=== PATIENT | male | born 1965 | race Caucasian/White ===

== ENCOUNTER 2021-12-28 08:09 | Oncology outpatient (recurring) (ONCR) | payer OTHER, SELFPAY | END 2022-01-06 23:59 | disposition home or self-care (01) | PROVIDERS: PCP Nurse Practitioner; Visit Provider Internal Medicine Hematology & Oncology | DX: C34.12 Malignant neoplasm of upper lobe, left bronchus or lung (principal); C77.8 Secondary and unspecified malignant neoplasm of lymph nodes of multiple regions; C78.01 Secondary malignant neoplasm of right lung; Z98.1 Arthrodesis status; K76.89 Other specified diseases of liver; G93.89 Other specified disorders of brain; F17.210 Nicotine dependence, cigarettes, uncomplicated | CPT/HCPCS: 99204 ==

== ENCOUNTER → 2021-12-29 09:47 | Outpatient (BNVA) | payer OTHER, SELFPAY | PROVIDERS: PCP Nurse Practitioner; Visit Provider Surgery | DX: C34.92 Malignant neoplasm of unspecified part of left bronchus or lung (principal) | CPT/HCPCS: 99203 ==

== ENCOUNTER 2022-01-04 10:21 | Outpatient (CLI) | payer OTHER, SELFPAY ==
--- NOTE | 2022-01-04 10:15 | MR_ITS ---
WS: [id number] MRI BRAIN WITH AND WITHOUT CONTRAST HISTORY: STAGING, history of lung cancer. COMPARISON: CT head 10/29/2011 TECHNIQUE: Multiplanar imaging performed through the brain with MultiHance 17 ml's IV. No acute infarcts are seen. Huang-white matter differentiation is well preserved. No susceptibility artifacts or prior lacunar infarcts. Ventricles and extra-axial spaces are normal. Clivus and pituitary gland are normal. There is a single enhancing nodule measuring 4 mm in the medial LEFT cerebellum. No susceptibility ar tifact. No additional areas of abnormal enhancement are identified. Dural venous sinuses are normal. Paranasal sinuses: Well aerated with no significant disease. Mastoid air cells: Normal. Calvarium and scalp: Normal. MR/MR head wo/w con [id number] IMPRESSION: 1. Single, 4 mm enhancing lesion in the medial LEFT cerebellum. Suspicious but indeterminate for metastatic lesion. Although there is no susceptibility artif act this could be a small vascular malformation. Suggest repeat MRI brain imagi ng with contrast in 4-6 weeks to evaluate for any progression in size. 2. No significant small vessel ischemic disease.
[2022-01-04] MEDS: gadobenate dimeglumine 20 mL vial IV (11:27)
== END 2022-01-04 10:22 | disposition home or self-care (01) ==
LOC: RAD 10:21
PROVIDERS: PCP Nurse Practitioner; Visit Provider Internal Medicine Hematology & Oncology
DX: C34.90 Malignant neoplasm of unspecified part of unspecified bronchus or lung (principal)
CPT/HCPCS: 70553; A9577

== ENCOUNTER 2022-01-07 10:14 | Day surgery (SDC) | payer OTHER, SELFPAY ==
[2022-01-06 09:51] VITALS: BMI 25.7
--- NOTE | 2022-01-07 10:46 | XRR_ITS ---
PROCEDURE INFORMATION: Exam: XR Chest Exam date and time: 01/07/2022 12:35 PM Age: 56 years old Clinical indication: Device placement; Other: Mediport placement; Prior surgery; Surgery date: Post-operative (0-2 days); Additional info: Postop mediport placement TECHNIQUE: Imaging protocol: Radiologic exam of the chest. Views: 1 view. COMPARISON: DX XR chest 1V [id number] 12/15/2021 10:19 AM FINDINGS: Tubes, catheters and devices: A right MediPort catheter is present with the tip projecting in the SVC. Lungs: There is no significant change in the large mass in the left upper lobe. A faint 18 mm nodule is present in the right lung base. Pleural spaces: Unremarkable. No pleural effusion. No pneumothorax. Heart/Mediastinum: Unremarkable. No cardiomegaly. Bones/joints: Unremarkable. XR/XR chest 1V portable [id number] IMPRESSION: 1. The tip of the MediPort catheter projects on the SVC. 2. Pulmonary masses unchanged.
--- NOTE | 2022-01-07 10:46 | SC_ITS ---
WS: [id number] C-arm FL for CVA [id number] REASON FOR EXAM: Mediport insertion FINDINGS: Chemotherapy infusion port over the right anterolateral chest. Port catheter placement transvenous ri ght subclavian vein with the tip at the cavoatrial junction. No pneumothorax. SC/C-arm FL for CVA [id number] IMPRESSION: Chemotherapy port and catheter placement as above.
[2022-01-07 11:00] VITALS: BP 105/75; PULSE 108; RESP 18; TEMP 36.6; O2SAT 100
[2022-01-07] MEDS: sodium chloride 0.9% 1,000 ML 30 ML IV (11:20)
--- NOTE | 2022-01-07 11:32 | P.ANESASSM_ITS ---
Pre-Anesthetic Assessment Height/Weight: Height 1.78 m Weight 81.193 kg Temp Pulse Resp BP Pulse Ox O2 Del Method 97.9 F 108 H 18 105/75 100 01/07/22 11:00 01/07/22 11:00 01/07/22 11:00 01/07/22 11:00 01/07/22 11:00 01/07/22 11:00 Preop Diagnosis: Left lung cancer Operation Date: 01/07/22 11:45 Proposed Procedures p port placment [id number] C34.92(Not Applicable) - Quinn Mendoza DO Familial anesthetic complications: None Was Beta Kd taken within 24 hours: N/A Was Clonidine taken within 24 hours: N/A Last intake: Intake Last Liquid Date 01/06/22 Last Liquid Time 21:00 Last Solid Date 01/06/22 Last Solid Time 21:00 Social Tobacco and No alcohol Exam alert, oriented x 3, clear to auscultation bilaterally and regular rate & rhythm Airway Mallampati: Class II Dentition: full Comments: Comments: states poor dentition on bottom teeth Pulmonary Lung cancer (R) Anesthetic Plan ASA status: 3 Anesthesia: MAC Risk of > 500 ml blood loss (7ml/kg in children): No Medications/Allergies Home Medications Medication Instructions Recorded Confirmed Last Taken Type acetaminophen 325 mg tablet 325 mg PO QID PRN Pain 12/28/21 01/07/22 2 Days Ago History (Tylenol) ~01/05/22 ibuprofen 200 mg tablet 200 mg PO Q6H PRN Pain 12/28/21 01/07/22 2 Days Ago History ~01/05/22 Allergies Allergy/AdvReac Type Severity Reaction Status Date / Time No Known Allergies Allergy Verified 12/29/21 10:02 [facility] Anesthesia Medical History Cancer of left lung Lung cancer Surgical History History of back surgery x3 History of esophagogastroduodenoscopy (EGD) 2009 History of lumbar surgery x3 History of testicular surgery double testicular torsion with hernia repair Hx of colonoscopy with polypectomy 2009 Family History Grandfather Cancer Grandmother Dementia Father Hypertension Other Anesthesia complication Diabetes Hyperlipidemia Denies family history of CAD (coronary artery disease) Clotting disorder Psychiatric illness Chronic kidney disease (CKD) Suicide Bleeding disorder Lung disease Stroke Social History Smoking and tobacco status: current every day smoker cigarettes Packs smoked per day: 1 Years cigarettes smoked: 30 Alcohol intake: current Alcohol intake frequency: holidays/special occasions only Data Anesthesia Cardiac Studies: No Data to Display
--- NOTE | 2022-01-07 11:39 | W.PM.OPSUD ---
Surgery/Procedure H&P Update DATE OF PROCEDURE: January 07, 2022 DATE H&P PERFORMED: 12/29/21 PREOP DIAGNOSIS: Left lung cancer PLANNED PROCEDURE: Operation Date: 01/07/22 11:45 Proposed Procedures p port placment [id number] C34.92(Not Applicable) - Quinn Mendoza DO
--- NOTE | 2022-01-07 11:40 | W.PM.OPSUD ---
Surgery/Procedure H&P Update DATE OF PROCEDURE: January 07, 2022 DATE H&P PERFORMED: 12/29/21 PREOP DIAGNOSIS: Left lung cancer PLANNED PROCEDURE: Operation Date: 01/07/22 11:45 Proposed Procedures p port placment [id number] C34.92(Not Applicable) - Quinn Mendoza DO
--- NOTE | 2022-01-07 11:41 | W.PM.OPSUD ---
Surgery/Procedure H&P Update DATE OF PROCEDURE: January 07, 2022 DATE H&P PERFORMED: 12/29/21 PREOP DIAGNOSIS: Left lung cancer PLANNED PROCEDURE: Operation Date: 01/07/22 11:45 Proposed Procedures p port placment [id number] C34.92(Not Applicable) - Quinn Mendoza DO
[2022-01-07] MEDS: ceFAZolin 2,000 MG in sodium chloride 0.9% (plus) 50 ML 100 MG IV (11:50)
[2022-01-07] MEDS: lidocaine 1% INJ 20 mL INJECTION (12:08)
[2022-01-07] MEDS: sodium chloride 0.9% (100 ml) 100 ML (12:14)
[2022-01-07] MEDS: heparin, porcine 1,000 unit/mL INJ 10 mL 10000 UNIT INJECTION (12:14)
[2022-01-07 12:29] VITALS: BP 94/64; PULSE 98; RESP 20; TEMP 36.5; O2SAT 98
--- NOTE | 2022-01-07 12:32 | PM.OP ---
Operative Report Date of procedure: January 07, 2022 Pre-op diagnosis: Preop Diagnosis Left lung cancer Post-op diagnosis: same Procedure done: Mediport placement Implants: PowerPort Surgeon: Dr. Quinn Mendoza, DO Anesthesia: MAC Estimated blood loss (mL): 5 Complications: None apparent Brief History: This is a very pleasant 56-year-old gentleman with lung cancer. Mediport placement was required for chemotherapy. The risks and benefits were explained and documented. Procedure: Patient was taken to the operating room and placed supine on the operating room table. All bony prominences were padded. She was given IV sedation and monitored throughout the case by the anesthesia personnel. SCDs were placed and turned on. The arms were tucked to the side. Patient received Ancef? 2 g preoperatively IV. The bilateral chest wall was prepped and draped in usual sterile fashion using chlorhexidine base prep. Sterile drapes were applied. We did procedure pause prior to beginning. ? An 18 gauge needle was placed in the right subclavian vein. Dark, nonpulsatile blood was aspirated. A guidewire was placed through the needle centrally toward the atrial/vena caval junction. Fluoroscopy visualized good placement. The needle was removed and the guidewire was clipped to the drape with a hemostat. ? Further local anesthetic was infiltrated in the soft tissues of the right/left chest wall and a #15 blade was used to make a horizontal skin incision. A subcutaneous Mediport pocket was created using Bovie cautery, dissecting down through the skin and subcutaneous tissues. Meticulous hemostasis was achieved. The Mediport was sutured in position using 3-0 vicryl suture x2 stitches. ? A #15 blade was used to make a small skin around the guidewire insertion area. The Mediport tubing was tunneled through the subcutaneous tissues up to the needle insertion location. ? A dilator with a peel-away sheath was placed over the guidewire and placed centrally. After measuring with fluoroscopy, the Mediport tubing was cut to length so that the tip would end at the atrial/vena caval junction. The inner cannula and the guidewire were removed, leaving the dilator sheath in place. The Mediport was flushed. The tip of the catheter was inserted through the peel-away sheath and the peel-away sheath removed in the standard fashion. The Mediport was accessed with a straight Singleton needle and dark, nonpulsatile blood was aspirated and flushed using heparinized saline to hep-lock the Mediport.? Final fluoroscopy visualization showed no kink in the catheter and the tip of the Mediport tubing near the atrial/vena caval junction. ? Both skin incisions were thoroughly irrigated and suctioned dry. Meticulous hemostasis noted. The Mediport incision was closed using interrupted 3-0 Vicryl suture for the deep dermal layer and 4-0 Vicryl run to close the skin edge. The right subclavian insertion site incision was closed with a single subcuticular stitch. Skin glue was applied as a topical dressing. This was allowed to dry. Patient was awakened from anesthesia and transferred via her cart to the recovery room in stable condition. All needle, sponge, and instrument counts were correct per the operating personnel x2 counts.
[2022-01-07 12:40] VITALS: BP 120/77; PULSE 112; RESP 20; O2SAT 93
[2022-01-07 12:45] VITALS: BP 112/90; PULSE 83; RESP 18; O2SAT 96
[2022-01-07 13:04] VITALS: BP 107/77; PULSE 97; RESP 16; TEMP 36.6; O2SAT 95
[2022-01-07 13:35] VITALS: BP 101/68; PULSE 97; RESP 18; O2SAT 97
--- NOTE | 2022-01-07 15:55 | ANE.PACU2 ---
Inpatient post-anesthesia follow up: Airway intact: Yes Vital signs: Temperature 98 F Pulse Rate 97 Respiratory Rate 18 Blood Pressure 101/68 Pulse Oximetry 97 Oxygen Delivery Me thod Room Air Oxygen Flow Rate 6 Fraction of Inspir ed Oxygen Hydration adequate: Yes Nausea and vomiting: No Pain level: 1 Mental status: Baseline
== END 2022-01-07 13:50 | disposition home or self-care (01) ==
PROVIDERS: PCP Nurse Practitioner; Visit Provider Surgery
PROC: (CPT 36561; principal; 2022-01-07 11:35)
DX: C34.90 Malignant neoplasm of unspecified part of unspecified bronchus or lung (principal); F17.210 Nicotine dependence, cigarettes, uncomplicated
CPT/HCPCS: 36561; 71045; 77001; C1788; J0690; J1644; J2704; J3010; J7030

== ENCOUNTER → 2022-01-19 08:45 | Outpatient (BNVA) | payer OTHER, SELFPAY | PROVIDERS: PCP Nurse Practitioner; Visit Provider Surgery | DX: Z95.828 Presence of other vascular implants and grafts (principal) | CPT/HCPCS: 99213 ==

== ENCOUNTER 2022-02-03 08:51 | Oncology outpatient (recurring) (ONCR) | payer OTHER, SELFPAY ==
--- NOTE | 2022-01-11 15:56 | N.ONRAD NP_ITS ---
Radiation Oncology Consultation Patient Name: Billy Capone Date of : 1965 Date of Service: 01/11/2022 Attending Physician: Eric Burr M.D. Billy Capone was seen in consultation this afternoon at the request of Melecio Babcock M.D. for consideration of thoracic radiotherapy in the management of a recently diagnosed non-small cell lung cancer. The patient was evaluated at the [facility] in [place], [place] for a persistent cough. A chest radiograph revealed a large left upper lobe mass, left hilar adenopathy, and a right lower lobe nodule. A thoracic CT scan ordered on December 08, 2021 described a 9.8 cm x 9.1 cm x 8.5 cm left upper lobe mass, 0.5 cm right lower lobe nodule, subcentimeter nodules in the right upper lobe and left lower lobe, hilar and mediastinal lymphadenopathy. A PET obtained on December 14, 2021 confirmed FDG activity within left upper lobe lung mass (SUV 21), and adjacent left upper lobe mass (SUV 9.1), right lower lobe nodule (SUV 6), and metabolic activity within the left hilar lymph, subcarinal, and paratracheal lymph nodes. A bronchoscopy with endobronchial ultrasound-guided biopsy performed on December 15, 2021. The pathology report (requested from the outside hospital and independently reviewed in [facility]) diagnosed metastatic adenocarcinoma from the lymph node station 7 specimen. An MRI of the head identified a 4 mm enhancing lesion in the medial aspect of the left cerebellum that was suspicious but indeterminate for metastatic lesion. The patient was evaluated for definitive thoracic radiotherapy. I discussed with Mr. Capone The [place] [employer] on Cancer Staging for lung cancer and specifically, the clinical stage BRISEIDA ([id number]) lung cancer corresponding to his disease. I also reviewed The National Comprehensive Cancer Network Guidelines recommending concurrent chemoradiotherapy for the management of locally advanced lung cancer associated with limited metastases. Chemoradiotherapy was established by the classic study, RTOG 9410, comparing sequential versus concurrent chemoradiotherapy that demonstrated an overall survival advantage for the concurrent chemoradiotherapy regimen. I would endorse a six week course of thoracic radiotherapy. Preceding radiotherapy, a computed tomographic radiotherapy planning scan with contrast in the treatment position will be acquired and co-registered to the patient's staging PET scan to identify the gross tumor volumes. The potential toxicities of thoracic radiotherapy were reviewed. The patient has verbalized understanding would like to proceed as recommended. The patient???s treatment plan was discussed with Melecio Babcock M.D. Signed by: Dr. Eric Burr 01/13/2022 9:27:35 AM
[2022-01-12 10:57] LABS: Basophils # 0.1 10^3/uL (0.0-0.1); Basophils % 0.6 %; Eosinophils # 0.3 10^3/uL (0.0-0.8); Hematocrit 42.4 % (42.0-52.0); Hemoglobin 13.9 g/dL (11.7-16.6); Lymphocytes # 2.7 10^3/uL (0.8-4.8); Lymphocytes % 17.7 %; Mean Corpuscular HGB Conc 32.8 g/dL (30.0-36.0); Mean Corpuscular Hemoglobin 30.4 pg (28.0-34.0); Mean Corpuscular Volume 92.8 fl (80-94); Mean Platelet Volume 10.4 fL (7.4-10.4); Monocytes # 1.2 10^3/uL (0.2-0.9); Neutrophils # 10.76 10^3/uL (1.8-7.7); Neutrophils % 71.2 %; Nucleated Red Blood Cells % 0 %; Platelet Count 506 10^3/cmm (130-400); Red Blood Count 4.57 10^6/uL (4.1-5.3); White Blood Count 15.1 10^3/uL (4.0-10.0)
[2022-01-12 11:31] LABS: Alanine Aminotransferase 21 U/L (0-41); Albumin Level 3.5 g/dL (3.5-5.2); Alkaline Phosphatase 97 U/L (40-130); Anion Gap 14.6 (5-19); Aspartate Amino Transferase 23 U/L (0-40); Blood Urea Nitrogen 10 mg/dL (6-20); Calcium 9.8 mg/dL (8.5-10.5); Carbon Dioxide 26 mmol/L (22-29); Chloride 99 mmol/L (98-107); Globulin 4.2 g/dL (1.3-4.6); Glomerular Filtration Rate 140.4 mL/min (90-130); Glucose 89 mg/dL (65-115); Osmolality Calculated 279 mOsm/kg (285-295); Potassium 4.6 mmol/L (3.5-5.1); Sodium 135 mmol/L (136-145); Total Bilirubin 0.3 mg/dL (0.15-1.2); Total Protein 7.7 g/dL (6.6-8.7)
[2022-01-12 11:32] LABS: Creatinine Clr Calc Pharmacy 150.2229
--- NOTE | 2022-01-13 | CT_ITS ---
Radiation Therapy Planning CT images MTDD
[2022-01-13] MEDS: iohexol 350 mg/mL 100 mL Btl IV (08:38)
[2022-01-19 09:43] LABS: Basophils # 0.1 10^3/uL (0.0-0.1); Basophils % 0.8 %; Eosinophils # 0.2 10^3/uL (0.0-0.8); Eosinophils % 1.8 %; Hematocrit 41.3 % (42.0-52.0); Hemoglobin 13.6 g/dL (11.7-16.6); Lymphocytes # 2.3 10^3/uL (0.8-4.8); Lymphocytes % 17.9 %; Mean Corpuscular HGB Conc 32.9 g/dL (30.0-36.0); Mean Corpuscular Hemoglobin 30.3 pg (28.0-34.0); Monocytes # 1.1 10^3/uL (0.2-0.9); Monocytes % 8.5 %; Neutrophils # 9.25 10^3/uL (1.8-7.7); Neutrophils % 70.5 %; Nucleated Red Blood Cells % 0 %; Platelet Count 439 10^3/cmm (130-400); Red Blood Count 4.49 10^6/uL (4.1-5.3); Red Cell Distribution Width 13.1 % (12.1-15.1); White Blood Count 13.1 10^3/uL (4.0-10.0)
[2022-01-19 10:09] LABS: Alanine Aminotransferase 12 U/L (0-41); Albumin Level 3.5 g/dL (3.5-5.2); Alkaline Phosphatase 93 U/L (40-130); Anion Gap 14.3 (5-19); Aspartate Amino Transferase 21 U/L (0-40); Blood Urea Nitrogen 9 mg/dL (6-20); Calcium 9.5 mg/dL (8.5-10.5); Carbon Dioxide 26 mmol/L (22-29); Chloride 98 mmol/L (98-107); Globulin 4.4 g/dL (1.3-4.6); Glomerular Filtration Rate 140.4 mL/min (90-130); Glucose 90 mg/dL (65-115); Osmolality Calculated 276 mOsm/kg (285-295); Potassium 4.3 mmol/L (3.5-5.1); Sodium 134 mmol/L (136-145); Total Bilirubin 0.2 mg/dL (0.15-1.2); Total Protein 7.9 g/dL (6.6-8.7)
[2022-01-19 10:18] LABS: Creatinine Clr Calc Pharmacy 150.7644
[2022-01-19] MEDS: sodium chloride 0.9% 250 ML 75 ML IV (11:03)
[2022-01-19] MEDS: ondansetron 2 mg/ML SDV 2 mL 8 MG IVP (11:03)
[2022-01-19] MEDS: CARBOplatin 300 MG in sodium chloride 0.9% 500 ML 530 MG IV (12:23)
[2022-01-19 13:52] VITALS: BP 95/60; PULSE 74; RESP 16; TEMP 36.6; O2SAT 93
--- NOTE | 2022-01-25 09:35 | ONCRAD TMN_ITS ---
Radiation Oncology Treatment Management Note Patient Name: Billy Capone Date of : 1965 Date of Service: 01/25/2022 Attending Physician: Eric Burr M.D. Billy Capone is a 56 year-old white male recently diagnosed with a clinical stage BRISEIDA ([id number]) non-small cell lung cancer. The patient was evaluated at the [facility] in [place], [place] for a persistent cough. A chest radiograph revealed a large left upper lobe mass, left hilar adenopathy, and a right lower lobe nodule. A thoracic CT scan ordered on December 08, 2021 described a 9.8 cm x 9.1 cm x 8.5 cm left upper lobe mass, 0.5 cm right lower lobe nodule, subcentimeter nodules in the right upper lobe and left lower lobe, hilar and mediastinal lymphadenopathy. A PET obtained on December 14, 2021 confirmed FDG activity within left upper lobe lung mass (SUV 21), and adjacent left upper lobe mass (SUV 9.1), right lower lobe nodule (SUV 6), and metabolic activity within the left hilar lymph, subcarinal, and paratracheal lymph nodes. A bronchoscopy with endobronchial ultrasound-guided biopsy performed on December 15, 2021. The pathology report diagnosed metastatic adenocarcinoma from the lymph node station 7 specimen. An MRI of the head identified a 4 mm enhancing lesion in the medial aspect of the left cerebellum that was suspicious but indeterminate for metastatic lesion. The patient has received 10 Gy of a prescribed 60 Huang with an intensity modulated radiotherapy plan utilizing a step and shoot treatment technique. He has been prescribed Carboplatin (AUC 2) and Abraxane (80 mg/m???) weekly during therapy. Upon review of systems, he reported hemorrhoids. On physical examination, the patient weighed 171 lbs. His temperature was 96.6 ???F and the blood pressure was 100/72 mmHg. The pulse was 111 bpm and his respiratory rate was 16. Oxygen saturation while breathing room air was 96%. There was no erythema within the treatment preciado. Continue thoracic radiotherapy as prescribed. I recommended Colace and MiraLAX. Signed by: Dr. Eric Burr 02/09/2022 9:34:55 AM
[2022-01-26 09:36] LABS: Basophils % 0.5 %; Eosinophils # 0.2 10^3/uL (0.0-0.8); Hematocrit 37.9 % (42.0-52.0); Hemoglobin 12.3 g/dL (11.7-16.6); Lymphocytes # 0.9 10^3/uL (0.8-4.8); Lymphocytes % 11.4 %; Mean Corpuscular HGB Conc 32.5 g/dL (30.0-36.0); Mean Corpuscular Hemoglobin 29.9 pg (28.0-34.0); Mean Corpuscular Volume 92.2 fl (80-94); Mean Platelet Volume 9.9 fL (7.4-10.4); Monocytes # 0.6 10^3/uL (0.2-0.9); Monocytes % 7.6 %; Neutrophils # 6.35 10^3/uL (1.8-7.7); Neutrophils % 77.8 %; Nucleated Red Blood Cells % 0 %; Platelet Count 418 10^3/cmm (130-400); Red Blood Count 4.11 10^6/uL (4.1-5.3); Red Cell Distribution Width 13.2 % (12.1-15.1); White Blood Count 8.2 10^3/uL (4.0-10.0)
[2022-01-26 09:53] LABS: Alanine Aminotransferase 15 U/L (0-41); Albumin Level 3.5 g/dL (3.5-5.2); Alkaline Phosphatase 87 U/L (40-130); Anion Gap 14.3 (5-19); Aspartate Amino Transferase 20 U/L (0-40); Blood Urea Nitrogen 10 mg/dL (6-20); Calcium 9.7 mg/dL (8.5-10.5); Carbon Dioxide 27 mmol/L (22-29); Chloride 101 mmol/L (98-107); Glomerular Filtration Rate 140.4 mL/min (90-130); Glucose 107 mg/dL (65-115); Osmolality Calculated 286 mOsm/kg (285-295); Potassium 4.3 mmol/L (3.5-5.1); Sodium 138 mmol/L (136-145); Total Bilirubin 0.3 mg/dL (0.15-1.2); Total Protein 7.5 g/dL (6.6-8.7)
[2022-01-26 09:54] LABS: Creatinine Clr Calc Pharmacy 150.7644
[2022-01-26] MEDS: sodium chloride 0.9% 250 ML 75 ML IV (12:04)
[2022-01-26] MEDS: ondansetron 2 mg/ML SDV 2 mL 8 MG IVP (12:04)
[2022-01-26] MEDS: CARBOplatin 300 MG in sodium chloride 0.9% 500 ML 530 MG IV (13:09)
[2022-01-26 14:12] VITALS: BP 96/62; PULSE 94; RESP 16; TEMP 36.8; O2SAT 96
[2022-02-02 10:06] LABS: Basophils # 0.1 10^3/uL (0.0-0.1); Basophils % 0.9 %; Eosinophils # 0.1 10^3/uL (0.0-0.8); Eosinophils % 1.1 %; Hematocrit 38.2 % (42.0-52.0); Hemoglobin 12.4 g/dL (11.7-16.6); Lymphocytes % 15.1 %; Mean Corpuscular HGB Conc 32.5 g/dL (30.0-36.0); Mean Corpuscular Hemoglobin 30.3 pg (28.0-34.0); Mean Corpuscular Volume 93.4 fl (80-94); Mean Platelet Volume 9.6 fL (7.4-10.4); Monocytes # 0.7 10^3/uL (0.2-0.9); Monocytes % 10.2 %; Neutrophils # 4.65 10^3/uL (1.8-7.7); Neutrophils % 72.2 %; Nucleated Red Blood Cells % 0 %; Platelet Count 348 10^3/cmm (130-400); Red Blood Count 4.09 10^6/uL (4.1-5.3); Red Cell Distribution Width 13.7 % (12.1-15.1); White Blood Count 6.4 10^3/uL (4.0-10.0)
[2022-02-02 10:29] LABS: Alanine Aminotransferase 13 U/L (0-41); Albumin Level 3.3 g/dL (3.5-5.2); Alkaline Phosphatase 86 U/L (40-130); Anion Gap 12.1 (5-19); Aspartate Amino Transferase 15 U/L (0-40); Blood Urea Nitrogen 10 mg/dL (6-20); Calcium 8.9 mg/dL (8.5-10.5); Carbon Dioxide 27 mmol/L (22-29); Chloride 100 mmol/L (98-107); Globulin 3.7 g/dL (1.3-4.6); Glomerular Filtration Rate 173.3 mL/min (90-130); Glucose 94 mg/dL (65-115); Osmolality Calculated 279 mOsm/kg (285-295); Potassium 4.1 mmol/L (3.5-5.1); Sodium 135 mmol/L (136-145); Total Bilirubin 0.2 mg/dL (0.15-1.2)
[2022-02-02] MEDS: sodium chloride 0.9% 250 ML 75 ML IV (13:25)
[2022-02-02] MEDS: ondansetron 2 mg/ML SDV 2 mL 8 MG IVP (13:26)
[2022-02-02] MEDS: CARBOplatin 300 MG in sodium chloride 0.9% 500 ML 530 MG IV (14:47)
[2022-02-02 15:52] VITALS: BP 95/64; PULSE 93; RESP 16; TEMP 36.9; O2SAT 93
== END 2022-02-03 09:26 | disposition home or self-care (01) ==
PROVIDERS: Internal Medicine Hematology & Oncology; PCP Nurse Practitioner; Visit Provider Specialist
DX: Z51.0 Encounter for antineoplastic radiation therapy (principal); C34.12 Malignant neoplasm of upper lobe, left bronchus or lung
CPT/HCPCS: 36591; 77014; 77300; 77301; 77334; 77336; 77338; 77386; 77470; 80053; 85025; 96367; 96375; 96413; 96417; 99024; 99205; 99213; 99214; J1100; J2405; J7040; J7050; J9045; J9264; Q9967

== ENCOUNTER 2022-02-05 08:52 | Oncology outpatient (recurring) (ONCR) | payer OTHER, SELFPAY | END 2022-02-06 23:59 | disposition home or self-care (01) | PROVIDERS: PCP Nurse Practitioner; Visit Provider Specialist | DX: C34.12 Malignant neoplasm of upper lobe, left bronchus or lung (principal); C77.8 Secondary and unspecified malignant neoplasm of lymph nodes of multiple regions; C78.01 Secondary malignant neoplasm of right lung; Z98.1 Arthrodesis status; K76.89 Other specified diseases of liver; G93.89 Other specified disorders of brain; F17.210 Nicotine dependence, cigarettes, uncomplicated; C79.31 Secondary malignant neoplasm of brain; F43.20 Adjustment disorder, unspecified; Z79.899 Other long term (current) drug therapy; C34.82 Malignant neoplasm of overlapping sites of left bronchus and lung | CPT/HCPCS: 77014; 77336; 77386 ==

== ENCOUNTER → 2022-02-09 10:11 | Outpatient (BNVA) | payer OTHER, SELFPAY ==
--- NOTE | 2022-02-22 09:48 | ONCRAD TMN_ITS ---
Radiation Oncology Treatment Management Note Patient Name: Billy Capone Date of : 1965 Date of Service: 02/22/2022 Attending Physician: Eric Burr M.D. Billy Capone is a 56 year-old white male recently diagnosed with a clinical stage BRISEIDA ([id number]) non-small cell lung cancer. The patient was evaluated at the [facility] in [place], [place] for a persistent cough. A chest radiograph revealed a large left upper lobe mass, left hilar adenopathy, and a right lower lobe nodule. A thoracic CT scan ordered on December 08, 2021 described a 9.8 cm x 9.1 cm x 8.5 cm left upper lobe mass, 0.5 cm right lower lobe nodule, subcentimeter nodules in the right upper lobe and left lower lobe, hilar and mediastinal lymphadenopathy. A PET obtained on December 14, 2021 confirmed FDG activity within left upper lobe lung mass (SUV 21), and adjacent left upper lobe mass (SUV 9.1), right lower lobe nodule (SUV 6), and metabolic activity within the left hilar lymph, subcarinal, and paratracheal lymph nodes. A bronchoscopy with endobronchial ultrasound-guided biopsy performed on December 15, 2021. The pathology report diagnosed metastatic adenocarcinoma from the lymph node station 7 specimen. An MRI of the head identified a 4 mm enhancing lesion in the medial aspect of the left cerebellum that was suspicious but indeterminate for metastatic lesion. The patient has received 44 Gy of a prescribed 60 Huang with an intensity modulated radiotherapy plan utilizing a step and shoot treatment technique. He has been prescribed Carboplatin (AUC 2) and Abraxane (80 mg/m???) weekly during therapy. Upon review of systems, he described fatigue and mild odynophagia. On physical examination, the patient weighed 169 lbs. His temperature was 98.3 ???F and the blood pressure was 103/71 mmHg. The pulse was 100 bpm and his respiratory rate was 16. Oxygen saturation while breathing room air was 96%. There was no erythema within the treatment preciado. Bronchial breath sounds were present. Continue thoracic radiotherapy as planned. Signed by: Dr. Eric Burr 02/22/2022 10:06:23 AM
== END ==
PROVIDERS: PCP Nurse Practitioner; Visit Provider Internal Medicine Hematology & Oncology
DX: Z51.0 Encounter for antineoplastic radiation therapy (principal); C34.12 Malignant neoplasm of upper lobe, left bronchus or lung; C78.01 Secondary malignant neoplasm of right lung; C77.8 Secondary and unspecified malignant neoplasm of lymph nodes of multiple regions; Z79.899 Other long term (current) drug therapy
CPT/HCPCS: 77014; 77386; 99214

== ENCOUNTER 2022-02-16 01:00 | Outpatient (CLI) | payer OTHER, SELFPAY | END 2022-02-16 23:00 | disposition home or self-care (01) | LOC: RAD 03-09 18:56 | PROVIDERS: PCP Nurse Practitioner; Visit Provider Internal Medicine Hematology & Oncology | DX: C34.12 Malignant neoplasm of upper lobe, left bronchus or lung (principal); C78.01 Secondary malignant neoplasm of right lung; C77.8 Secondary and unspecified malignant neoplasm of lymph nodes of multiple regions; Z98.1 Arthrodesis status; I82.B11 Acute embolism and thrombosis of right subclavian vein; R60.0 Localized edema; Z79.2 Long term (current) use of antibiotics; Z79.01 Long term (current) use of anticoagulants; Z79.899 Other long term (current) drug therapy; Z87.891 Personal history of nicotine dependence | CPT/HCPCS: 93971; 99213; 99214 ==

== ENCOUNTER → 2022-02-22 08:58 | Outpatient (BNVA) | payer OTHER, SELFPAY | PROVIDERS: PCP Nurse Practitioner; Visit Provider Internal Medicine Hematology & Oncology | DX: C34.12 Malignant neoplasm of upper lobe, left bronchus or lung (principal) | CPT/HCPCS: 99214 ==

== ENCOUNTER 2022-02-23 08:59 | Emergency (ER) | payer OTHER, SELFPAY ==
[2022-02-23] VITALS (43 sets, daily range): BP systolic 85–123; BP diastolic 58–77; PULSE 74–108; RESP 5–31; TEMP 36.4; O2SAT 94–99; BMI 23.6
[2022-02-23 09:22] LABS: Glucose Point of Care 131 mg/dL (70-110)
--- NOTE | 2022-02-23 09:29 | CT_ITS ---
WS: [id number] CT HEAD NONCONTRAST HISTORY: Symptoms of acute stroke, left-sided weakness. TECHNIQUE: Contiguous axial imaging performed through the brain in 2.5 mm imaging. Bone and soft tiss ue windows. Sagittal and coronal reformats reviewed. All CT scans at [facility] use at least one of these dose optimization techniques: automated exposure control; mA and/or kV adjustment per pa tient size (includes targeted exams where dose is matched to clinical indication); or iterative recon struction. DLP: 1211.3 mGy-cm. COMPARISON: 10/29/2011 No acute intracranial hemorrhage, midline shift or mass effect. No atrophy or prior infarcts or herniation. Ventricles: Normal size with no hydrocephalus. Inferior displacement of cerebellar tonsils. Paranasal sinuses: As visualized are clear. Mastoid air cells: Well pneumatized. Calvarium and scalp: Skull is intact with no soft tissue edema or swelling. CT/CT head thrombolytic [id number] IMPRESSION: Negative head CT. Study submitted for interpretation at 10:28 AM. Previous to this time study was reserved.
--- NOTE | 2022-02-23 09:38 | PC.NURSE ---
patient placed on teletypesetter monitor, pulse ox, and BP monitor
[2022-02-23 09:46] LABS: Basophils % 0.6 %; Eosinophils % 1.9 %; Lymphocytes # 0.2 10^3/uL (0.8-4.8); Lymphocytes % 15.6 %; Mean Corpuscular HGB Conc 32.4 g/dL (30.0-36.0); Mean Corpuscular Hemoglobin 30.8 pg (28.0-34.0); Mean Corpuscular Volume 95.2 fl (80-94); Monocytes # 0.1 10^3/uL (0.2-0.9); Monocytes % 8.4 %; Neutrophils # 1.12 10^3/uL (1.8-7.7); Neutrophils % 72.9 %; Nucleated Red Blood Cells % 0 %; Platelet Count 96 10^3/cmm (130-400); Red Blood Count 3.57 10^6/uL (4.1-5.3); Red Cell Distribution Width 15.2 % (12.1-15.1); White Blood Count 1.5 10^3/uL (4.0-10.0)
--- NOTE | 2022-02-23 09:46 | ECG_ITS ---
[facility] Test Date: 2022-02-23 Pat Name: Billy Capone Department: Room: Gender: Male [employer]: : 1965 Requested By: Elfego Alvarez Order Number: [id number] Luci MD: Oracio Tidwell M.D. Measurements Intervals Conrad Rate: 102 P: 79 [place]: 156 QRS: 93 QRSD: 100 T: 68 QT: 313 QTc: 409 Interpretive Statements SINUS TACHYCARDIA BORDERLINE RIGHT AXIS DEVIATION [QRS AXIS > 90] No previous ECG available for comparison Electronically Signed On 02-23-2022 14:44:16 MEAT CUTTER by Oracio Tidwell M.D. [id number]
[2022-02-23 09:52] LABS: Partial Thromboplastin Time 30.3 SECONDS (23.9-36.7)
[2022-02-23 09:53] LABS: Alanine Aminotransferase 13 U/L (0-41); Albumin Level 3.4 g/dL (3.5-5.2); Alkaline Phosphatase 93 U/L (40-130); Anion Gap 13.4 (5-19); Aspartate Amino Transferase 11 U/L (0-40); Blood Urea Nitrogen 12 mg/dL (6-20); Calcium 9.1 mg/dL (8.5-10.5); Carbon Dioxide 27 mmol/L (22-29); Chloride 98 mmol/L (98-107); Globulin 3.5 g/dL (1.3-4.6); Glomerular Filtration Rate 117.5 mL/min (90-130); Glucose 143 mg/dL (65-115); Osmolality Calculated 280 mOsm/kg (285-295); Potassium 4.4 mmol/L (3.5-5.1); Sodium 134 mmol/L (136-145); Total Bilirubin 0.2 mg/dL (0.15-1.2); Total Protein 6.9 g/dL (6.6-8.7)
--- NOTE | 2022-02-23 10:25 | ED_ITS ---
HPI - Neuro Symptoms/Deficit General: Chief Complaint: Neuro Symptoms/Deficit Stated Complaint: Confusion, tingling and low BP Time Seen by Provider: 02/23/22 09:26 Source: patient Mode of arrival: ambulatory History of Present Illness: 56-year-old male presents to the emergency room with right-sided weakness and numbness. He was fine when he went to bed last evening around 10 PM when he woke up this morning and 70 noticed the symptoms his states also his speech seems a little bit off. He feels he is having a hard time processing things although he gives a fairly good history and review of symptoms. He has a known history of lung cancer and is currently getting radiation. He did try CBD products for the first time last night. Onset (ago): unknown Location: speech, right face, right arm and right leg History of same: No Severity: mild Quality: weak, numb and tingling Relieving factors: none Exacerbating factors: none Associated symptoms: Reports weakness; Deny chest pain, cough, diaphoresis, fevers/chills, headache(s), anorexia, malaise, nausea, seizures, short of breath, syncope, tingling, vertigo or vomiting Treatments Prior to Arrival: none Review of Systems Const: Denies: malaise or diaphoresis ENMT: Denies: throat pain, ear or mastoid pain, nasal discharge or nasal congestion Card: Denies: chest pain or syncope Resp: Denies: dyspnea, productive cough or non-productive cough GI: Denies: nausea or vomiting : Denies: flank pain, dysuria, urinary frequency or urinary urgency Skin/Breast: Denies: rash or pruritus Neuro: Denies: headache(s) or vertigo PFS ED PFSH: Medical History Cancer of left lung Lung cancer Port-A-Cath in place Surgical History History of back surgery x3 History of esophagogastroduodenoscopy (EGD) 2010 History of lumbar surgery x3 History of testicular surgery double testicular torsion with hernia repair Hx of colonoscopy with polypectomy 2009 Family History Grandfather Cancer Grandmother Dementia Father Hypertension Other Anesthesia complication Diabetes Hyperlipidemia Denies family history of CAD (coronary artery disease) Clotting disorder Psychiatric illness Chronic kidney disease (CKD) Suicide Bleeding disorder Lung disease Stroke Social History Smoking and tobacco status: smoker, details unknown cigarettes Packs smoked per day: 1 Years cigarettes smoked: 30 Alcohol intake: current Alcohol intake frequency: holidays/special occasions only NIH stroke score NIHSS: Level Of Consciousness - 1a: 0 Level Of Consciousness Questions - 1b: Both Correct Level Of Consciousness Commands - 1c: Both Correct Best Gaze - 2: Normal Visual Anna - 3: No Visual Loss Facial Palsy - 4: Normal Motor Arm Right - 5: No Drift Motor Arm Left - 5: No Drift Motor Leg Right - 6: No Drift Motor Leg Left - 6: No Drift Limb Ataxia - 7: Absent Sensory - 8: Normal Best Language - 9: No Aphasia Dysarthia - 10: Normal Extinction And Inattention - 11: 0 Score: Total Score: 0 Physical Exam Const: COMMON NORMALS: no acute distress GENERAL APPEARANCE: cooperative and comfortable ORIENTATION/CONSCIOUSNESS: Yes awake, Yes oriented to person, Yes oriented to place and Yes oriented to time HENMT: COMMON NORMALS: normocephalic, atraumatic, hearing grossly normal bilaterally, external ears normal, EAC's normal, TM's normal bilaterally, Normal nasal mucous membranes and turbinates present, moist oral mucous membranes and oropharynx normal HEAD & SCALP: normocephalic and atraumatic NOSE: Normal nasal mucous membranes and turbinates present EXTERNAL EAR: Yes external ears normal EXTERNAL AUDITORY CANAL: EAC's normal TYMPANIC MEMBRANE: TM's normal bilaterally Eye: COMMON NORMALS: Equal, round and reactive pupils present, EOMs intact bilaterally, conjunctivae normal and no scleral icterus CONJUNCTIVA: Yes conjunctivae normal PUPIL: Yes Equal, round and reactive pupils present Neck/C-Spine: COMMON NORMALS: full ROM, no lymphadenopathy, supple and no JVD Lymph: LYMPHATIC: no lymphadenopathy noted and no lymphedema noted Resp: COMMON NORMALS: normal respiratory effort, No retractions, No use of accessory muscles and clear to auscultation bilaterally AUSCULTATION: clear to auscultation bilaterally Cardio: COMMON NORMALS: no JVD, regular rate, regular rhythm and No murmurs present (Cardio) RATE: regular rate RHYTHM: regular rhythm GI: COMMON NORMALS: Soft to palpation and No hepatosplenomegaly present AUSCULTATION: Yes normoactive bowel sounds PALPATION: Yes Soft to palpation, No Tenderness to palpation present (GI), No Guarding due to palpation present (GI) and Yes No hepatosplenomegaly present Extremity: COMMON NORMALS: normal to inspection, capillary refill normal, no clubbing, cyanosis or edema, no calf tenderness and no pedal edema Neuro: SENSORIUM/ORIENTATION: Yes oriented to person, Yes oriented to place and Yes oriented to time Skin: COMMON NORMALS: no rashes or lesions noted GENERAL SKIN EXAM: no rashes or lesions noted Course Vital Signs: Vital signs: Vital Signs Temperature 97.5 F L 02/23/22 09:12 Pulse Rate 96 02/23/22 13:21 Respiratory Rate 18 02/23/22 13:21 Blood Pressure 123/73 02/23/22 13:21 Pulse Oximetry 97 02/23/22 13:21 Oxygen Delivery Me thod 02/23/22 09:12 MDM - Neuro Symptoms/Deficit Medical Decision Making Suspect symptoms may be due to to taking the CBD product last night. In any event he has no symptoms at this time neurologically he is intact. Blood pressure initially mildly mono low resolved with administration of fluids he has no focal deficit at this time we will discharge patient home follow-up with his primary care doctor and oncology team as previously scheduled. Medical Records I reviewed the patient's medical records. Lab Data I reviewed the patient's lab results. 02/23/22 09:26 02/23/22 09:[address] 02/23/22 09:29 IMPRESSION: Negative head CT. Study submitted for interpretation at 10:28 AM. Previous to this time study was reserved. Head/Neck CTA 02/23/22 10:59 IMPRESSION: 1. No significant carotid artery stenosis or atherosclerotic disease. 2. Unremarkable [place]. 3. Known LEFT upper lobe large neoplastic mass with metastatic nodules in the RIGHT upper lobe. 4. No enhancing lesions identified within the brain on this CT angiogram. MRI evaluation would be much more sensitive. Patient had a suspicious cerebellar lesion on a prior MRI of 01/04/2022. Laboratory Results WBC 1.5 10^3/uL (4.0-10.0) L 02/23/22 09:26 RBC 3.57 10^6/uL (4.1-5.3) L 02/23/22 09:26 Hgb 11.0 g/dL (11.7-16.6) L 02/23/22 09:26 Hct 34.0 % (42.0-52.0) L 02/23/22 09: MCV 95.2 fl (80-94) H 02/23/22 09: MCH 30.8 pg (28.0-34.0) 02/23/22 09: MCHC 32.4 g/dL (30.0-36.0) 02/23/22 09: RDW 15.2 % (12.1-15.1) H 02/23/22 09: Plt Count 96 10^3/cmm (130-400) L 02/23/22 09: MPV 10.0 fL (7.4-10.4) 02/23/22 09: Neut % (Auto) 72.9 % 02/23/22 09: Lymph % (Auto) 15.6 % 02/23/22 09:26 [place] % (Auto) 8.4 % 02/23/22 09:26 Eos % (Auto) 1.9 % 02/23/22 09: Baso % (Auto) 0.6 % 02/23/22 09: Neut # (Auto) 1.12 10^3/uL (1.8-7.7) L 02/23/22 09:26 Lymph # (Auto) 0.2 10^3/uL (0.8-4.8) L 02/23/22 09:26 [place] # (Auto) 0.1 10^3/uL (0.2-0.9) L 02/23/22 09:26 Eos # (Auto) 0.0 10^3/uL (0.0-0.8) 02/23/22 09: Baso # (Auto) 0.0 10^3/uL (0.0-0.1) 02/23/22 09: Nucleated RBC % (auto) 0 % 02/23/22 09: Nucleated RBCs # 0.0 /100WBC 02/23/22 09: PT 14.50 SECONDS (12.1-14.9) 02/23/22 09:26 INR 1.10 (0.8-1.2) 02/23/22 09:26 APTT 30.3 SECONDS (23.9-36.7) 02/23/22 09:26 Sodium 134 mmol/L (136-145) L 02/23/22 09:26 Potassium 4.4 mmol/L (3.5-5.1) 02/23/22 09:26 Chloride 98 mmol/L (98-107) 02/23/22 09:26 Carbon Dioxide 27 mmol/L (22-29) 02/23/22 09:26 Anion Gap 13.4 (5-19) 02/23/22 09:26 BUN 12 mg/dL (6-20) 02/23/22 09:26 Creatinine 0.7 mg/dL (0.7-1.2) 02/23/22 09:26 GFR Calculation 117.5 mL/min (90-130) 02/23/22 09:26 Glucose 143 mg/dL (65-115) H 02/23/22 09:26 POC Glucose 131 mg/dL (70-110) H 02/23/22 09:19 Calculated Osmolality 280 mOsm/kg (285-295) L 02/23/22 09:26 Calcium 9.1 mg/dL (8.5-10.5) 02/23/22 09:26 Total Bilirubin 0.2 mg/dL (0.15-1.2) 02/23/22 09:26 AST 11 U/L (0-40) 02/23/22 09:26 ALT 13 U/L (0-41) 02/23/22 09:26 Alkaline Phosphatase 93 U/L (40-130) 02/23/22 09:26 Total Protein 6.9 g/dL (6.6-8.7) 02/23/22 09:26 Albumin 3.4 g/dL (3.5-5.2) L 02/23/22 09:26 Globulin 3.5 g/dL (1.3-4.6) 02/23/22 09:26 Urine Color Yellow (Yellow) 02/23/22 12:36 Urine Appearance Clear (CLEAR) 02/23/22 12:36 Urine pH 7 (5-7) 02/23/22 12:36 Ur Specific [place] 1.010 (1.005-1.030) 02/23/22 12:36 Urine Protein Neg (Negative) 02/23/22 12:36 Urine Glucose (UA) Norm (Normal) 02/23/22 12:36 Urine Ketones Negative (Negative) 02/23/22 12:36 Urine Blood Neg (Negative) 02/23/22 12:36 Urine Nitrate Negative (Negative) 02/23/22 12:36 Urine Bilirubin Neg (Negative) 02/23/22 12:36 Urine Urobilinogen Norm mg/dL (Negative) 02/23/22 12:36 Ur Leukocyte Esterase Negative (Negative) 02/23/22 12:36 Urine Opiates Screen Negative ng/mL (Negative) 02/23/22 12:36 Ur Barbiturates Screen Negative ng/mL (Negative) 02/23/22 12:36 Ur Phencyclidine Scrn Negative ng/mL (Negative) 02/23/22 12:36 Ur Amphetamines Screen Negative ng/mL (Negative) 02/23/22 12:36 U Benzodiazepines Scrn Negative ng/mL (Negative) 02/23/22 12:36 Urine Cocaine Screen Negative ng/mL (Negative) 02/23/22 12:36 U Marijuana (THC) Screen Positive ng/mL (Negative) H 02/23/22 12:36 Discharge Plan Discharge Patient Disposition: Home Clinical Impression: Transient cerebral ischemia, Cancer of left lung Condition: Stable Prescriptions: New aspirin 81 mg tablet,delayed release (DR/EC) 81 mg PO DAILY Qty: 30 0RF atorvastatin 40 mg tablet 40 mg PO DAILY Qty: 30 0RF No Action alprazolam 0.5 mg tablet 0.5 mg PO .Q6-8H PRN (Reason: anxiety) Qty: 40 0RF acetaminophen [Tylenol] 325 mg tablet 325 mg PO QID PRN (Reason: Pain) Hold Instructions: Resume on 01/10/22. polyethylene glycol 3350 [Miralax] 17 gram/dose powder 17 g PO DAILY PRN (Reason: Constipation) Eliquis 5 mg tablet 5 mg PO BID Qty: 74 0RF Rx Instructions: take 10mg BID for 7 days followed by 5mg BID thereafter oxycodone 5 mg/5 mL solution 5 mg PO Q4H PRN (Reason: pain) 14 Days Qty: 5 0RF prochlorperazine maleate [Compazine] 10 mg tablet 10 mg PO Q4H PRN (Reason: Mild Nausea) Qty: 30 3RF albuterol sulfate 2.5 mg /3 mL (0.083 %) Solution For Nebulization 2.5 mg INHALATION QID PRN (Reason: Shortness Of Breath) Discharge Orders: Discharge ED (Routine); Ordered 02/23/22 Ordered By: Elfego Posada Referrals: Ana Luisa Agarwal FNP [Primary Care Provider] - Discharge Diet: Usual diet Discharge Activity: Resume usual activity Patient Instructions: Opioid Safety, Pain Management Activity Restrictions/Additional Instructions: You were seen today for weakness on your right side. Your CT and CTA of your head and neck were negative. We will add aspirin and atorvastatin and set up for outpatient MRI of the head. Continue your Eliquis. Coding Level of Care Code ED Tip Fixer for Edu Fwd Exam Comprehensive
--- NOTE | 2022-02-23 10:59 | CT_ITS ---
WS: [id number] CT ANGIOGRAM CEREBRAL AND CAROTID ARTERIES HISTORY: cva, right-sided weakness. TECHNIQUE: CT angiogram is performed of the carotid and cerebral arteries. During arterial injection imaging is obtained from the skull vertex to the aortic arch in 1.25 mm imaging. Coronal and sagittal reformats are submitted. Additional multi planar reformats of the carotid and cerebral arteries are submitted, MIP imaging also reviewed. NASCET criteria utilized. [facility] CT [facility] at least one of these dose optimization techniques: automated exposure control; mA and/or kV adjust ment per patient size (includes targeted exams where dose is matched to clinical indication); or iter ative reconstruction. CONTRAST: Omnipaque 350; 95 mL IV. DLP: 523.94 mGy.cm COMPARISON: None available. Carotid Angiogram: Right carotid: Common carotid artery: Arises normally from the innominate artery. No significant plaque or stenosis. Internal carotid artery: No plaque or stenosis. External carotid artery: Patent. Left carotid: Common carotid artery: Arises normally from the aorta. No significant plaque or stenosis. Internal carotid artery: No plaque or stenosis. External carotid artery: Patent. Right vertebral artery: Unremarkable. Left vertebral artery: Dominant and normally arises from the subclavian. Subclavian arteries: No stenosis or significant abnormality. Upper thorax: Large neoplastic mass LEFT upper lobe is none. There are additional smaller RIGHT upper lobe metastatic nodules on a background of emphysema. Thyroid gland: Normal. Mild fullness and asymmetry LEFT tonsillar bed. No abnormality noted in this region on recent MRI. Osseous structures: Unremarkable. CEREBRAL ANGIOGRAM: Intracranial vertebral arteries: Normal with no significant atherosclerosis. Basilar artery: No significant stenosis or occlusion. No aneurysm. Intracranial Internal carotid arteries: Demonstrates no significant stenosis or plaque. Middle cerebral arteries: Normal. Anterior cerebral arteries and ACOM: Normal. Posterior cerebral arteries and PCOM's: Normal posterior cerebral arteries. Dominant RIGHT posterior communicating artery. LEFT posterior communicating artery is hypoplastic. Dural venous sinuses are normally enhancing. CT/CT angio headneck* [id number] IMPRESSION: 1. No significant carotid artery stenosis or atherosclerotic disease. 2. Unremarkable [place]. 3. Known LEFT upper lobe large neoplastic mass with metastatic nodules in the RIGHT upper lobe. 4. No enhancing lesions identified within the brain on this CT angiogram. MRI evaluation would be much more sensitive. Patient had a suspicious cerebellar le terrance on a prior MRI of 01/04/2022.
[2022-02-23] MEDS: diphenhydrAMINE 50 mg/mL SDV 1mL 25 MG IVP (11:25)
[2022-02-23] MEDS: iohexol 350 mg/mL 500 mL Btl (per mL) IV (12:03)
[2022-02-23 12:54] LABS: Add Urine Microscopic? NO; Charge for UA Resulting for Rev
[2022-02-23 13:18] LABS: Bilirubin Urine Neg (Negative); Blood Urine Neg (Negative); Glucose Urine UA Norm (Normal); Ketones Urine Negative (Negative); Leukocyte Esterase Urine Negative (Negative); Nitrate Urine Negative (Negative); Protein Urine Neg (Negative); Urine Appearance Clear (CLEAR); Urine Color Yellow (Yellow); Urobilinogen Urine Norm (Negative); pH Urine 7 (5-7)
[2022-02-23 13:26] LABS: Amphetamines Screen Urine Negative (Negative); Barbiturates Screen Urine Negative (Negative); Benzodiazepines Screen Urine Negative (Negative); Cocaine Screen Urine Negative (Negative); Opiate Screen Urine Negative (Negative); PCP Screen Urine Negative (Negative); THC Screen Urine Positive (Negative)
--- NOTE | 2022-02-23 13:26 | DCPLANNER ---
manager program had message to schedule an outpatient MRI for patient. manager program is unable to schedule the MRI due to patient having [employer] insurance. [facility], patient is follow up with Dr. Babcock and he will order the MRI for patient.
== END 2022-02-23 13:21 | disposition home or self-care (01) ==
PROVIDERS: Emergency Provider Family Medicine; PCP Nurse Practitioner
DX: G45.9 Transient cerebral ischemic attack, unspecified (principal); C34.92 Malignant neoplasm of unspecified part of left bronchus or lung; Z79.01 Long term (current) use of anticoagulants; F17.210 Nicotine dependence, cigarettes, uncomplicated
CPT/HCPCS: 36416; 70450; 70496; 70498; 80053; 80306; 81003; 82962; 85025; 85610; 85730; 93005; 96374; 96375; 99285; J1200; J2920; Q9967

== ENCOUNTER 2022-03-04 08:58 | Oncology outpatient (recurring) (ONCR) | payer OTHER, SELFPAY ==
--- NOTE | 2022-02-09 09:35 | ONCRAD TMN_ITS ---
Radiation Oncology Treatment Management Note Patient Name: Billy Capone Date of : 1965 Date of Service: 02/09/2022 Attending Physician: Eric Burr M.D. Billy Capone is a 56 year-old white male recently diagnosed with a clinical stage BRISEIDA ([id number]) non-small cell lung cancer. The patient was evaluated at the [facility] [place] [facility] in [place], [place] for a persistent cough. A chest radiograph revealed a large left upper lobe mass, left hilar adenopathy, and a right lower lobe nodule. A thoracic CT scan ordered on December 08, 2021 described a 9.8 cm x 9.1 cm x 8.5 cm left upper lobe mass, 0.5 cm right lower lobe nodule, subcentimeter nodules in the right upper lobe and left lower lobe, hilar and mediastinal lymphadenopathy. A PET obtained on December 14, 2021 confirmed FDG activity within left upper lobe lung mass (SUV 21), and adjacent left upper lobe mass (SUV 9.1), right lower lobe nodule (SUV 6), and metabolic activity within the left hilar lymph, subcarinal, and paratracheal lymph nodes. A bronchoscopy with endobronchial ultrasound-guided biopsy performed on December 15, 2021. The pathology report diagnosed metastatic adenocarcinoma from the lymph node station 7 specimen. An MRI of the head identified a 4 mm enhancing lesion in the medial aspect of the left cerebellum that was suspicious but indeterminate for metastatic lesion. The patient has received 26 Gy of a prescribed 60 Huang with an intensity modulated radiotherapy plan utilizing a step and shoot treatment technique. He has been prescribed Carboplatin (AUC 2) and Abraxane (80 mg/m???) weekly during therapy. Upon review of systems, he described fatigue. On physical examination, the patient weighed 169 lbs. His temperature was 98.3 ???F and the blood pressure was 102/70 mmHg. The pulse was 83 bpm and his respiratory rate was 20. Oxygen saturation while breathing room air was 94%. There was no erythema within the treatment preciado. Bronchial breath sounds were auscultated. Continue thoracic radiotherapy as planned. Signed by: Dr. Eric Burr 02/09/2022 9:33:50 AM
[2022-02-09 10:03] LABS: Basophils # 0.1 10^3/uL (0.0-0.1); Basophils % 1.2 %; Hematocrit 36.5 % (42.0-52.0); Lymphocytes # 0.7 10^3/uL (0.8-4.8); Mean Corpuscular HGB Conc 32.9 g/dL (30.0-36.0); Mean Corpuscular Hemoglobin 30.5 pg (28.0-34.0); Mean Corpuscular Volume 92.9 fl (80-94); Mean Platelet Volume 9.5 fL (7.4-10.4); Monocytes # 0.4 10^3/uL (0.2-0.9); Monocytes % 9.1 %; Neutrophils # 2.89 10^3/uL (1.8-7.7); Neutrophils % 71.2 %; Nucleated Red Blood Cells % 0 %; Platelet Count 202 10^3/cmm (130-400); Red Blood Count 3.93 10^6/uL (4.1-5.3); White Blood Count 4.1 10^3/uL (4.0-10.0)
[2022-02-09 10:26] LABS: Alanine Aminotransferase 12 U/L (0-41); Albumin Level 3.5 g/dL (3.5-5.2); Alkaline Phosphatase 109 U/L (40-130); Anion Gap 11.9 (5-19); Aspartate Amino Transferase 12 U/L (0-40); Blood Urea Nitrogen 13 mg/dL (6-20); Calcium 9.4 mg/dL (8.5-10.5); Carbon Dioxide 28 mmol/L (22-29); Chloride 99 mmol/L (98-107); Globulin 3.6 g/dL (1.3-4.6); Glomerular Filtration Rate 140.4 mL/min (90-130); Glucose 89 mg/dL (65-115); Osmolality Calculated 280 mOsm/kg (285-295); Potassium 3.9 mmol/L (3.5-5.1); Sodium 135 mmol/L (136-145); Total Bilirubin 0.2 mg/dL (0.15-1.2); Total Protein 7.1 g/dL (6.6-8.7)
[2022-02-09] MEDS: sodium chloride 0.9% 250 ML 75 ML IV (11:17)
[2022-02-09] MEDS: ondansetron 2 mg/ML SDV 2 mL 8 MG IVP (11:18)
[2022-02-09] MEDS: CARBOplatin 300 MG in sodium chloride 0.9% 500 ML 530 MG IV (12:35)
[2022-02-09 13:39] VITALS: BP 94/64; PULSE 94; RESP 16; TEMP 36.3; O2SAT 97
--- NOTE | 2022-02-12 10:01 | XR_ITS ---
WS: [id number] PA and lateral chest, 02/12/2022 Clinical Data: fever Comparison: Portable chest, 01/07/2022 Findings: The left upper lobe mass is diminished in size and density. There is a right lower lobe nod ule which is increased in density but not size. No pneumonia or pneumothorax is seen. The heart is no rmal. There is a right infusion catheter ending in the superior vena cava. XR/XR chest 2V* [id number] Impression: 1. Negative for acute pneumonia. 2. Decrease in density of left upper lobe mass. 3. No change in right lower lobe nodule.
[2022-02-12] MEDS: sodium chloride 0.9% 500 ML IV (10:15)
[2022-02-12 10:26] LABS: Basophils % 0.7 %; Eosinophils % 0.7 %; Hematocrit 35.3 % (42.0-52.0); Hemoglobin 11.6 g/dL (11.7-16.6); Lymphocytes # 0.5 10^3/uL (0.8-4.8); Lymphocytes % 12.5 %; Mean Corpuscular HGB Conc 32.9 g/dL (30.0-36.0); Mean Corpuscular Hemoglobin 30.9 pg (28.0-34.0); Mean Corpuscular Volume 93.9 fl (80-94); Mean Platelet Volume 9.4 fL (7.4-10.4); Monocytes # 0.3 10^3/uL (0.2-0.9); Monocytes % 5.8 %; Neutrophils # 3.46 10^3/uL (1.8-7.7); Neutrophils % 80.1 %; Nucleated Red Blood Cells % 0 %; Platelet Count 137 10^3/cmm (130-400); Red Blood Count 3.76 10^6/uL (4.1-5.3); Red Cell Distribution Width 14.6 % (12.1-15.1); White Blood Count 4.3 10^3/uL (4.0-10.0)
[2022-02-15 10:00] LABS: Eosinophils % 1.3 %; Hematocrit 35.6 % (42.0-52.0); Hemoglobin 11.7 g/dL (11.7-16.6); Lymphocytes # 0.6 10^3/uL (0.8-4.8); Lymphocytes % 18.8 %; Mean Corpuscular HGB Conc 32.9 g/dL (30.0-36.0); Mean Corpuscular Volume 94.2 fl (80-94); Mean Platelet Volume 9.6 fL (7.4-10.4); Monocytes # 0.2 10^3/uL (0.2-0.9); Monocytes % 5.1 %; Neutrophils # 2.29 10^3/uL (1.8-7.7); Neutrophils % 73.2 %; Nucleated Red Blood Cells % 0 %; Platelet Count 95 10^3/cmm (130-400); Red Blood Count 3.78 10^6/uL (4.1-5.3); Red Cell Distribution Width 14.7 % (12.1-15.1); White Blood Count 3.1 10^3/uL (4.0-10.0)
[2022-02-15 10:18] LABS: Alanine Aminotransferase 11 U/L (0-41); Albumin Level 3.4 g/dL (3.5-5.2); Alkaline Phosphatase 94 U/L (40-130); Anion Gap 13.3 (5-19); Aspartate Amino Transferase 10 U/L (0-40); Blood Urea Nitrogen 13 mg/dL (6-20); Calcium 9.5 mg/dL (8.5-10.5); Carbon Dioxide 25 mmol/L (22-29); Chloride 98 mmol/L (98-107); Globulin 3.5 g/dL (1.3-4.6); Glomerular Filtration Rate 140.4 mL/min (90-130); Glucose 104 mg/dL (65-115); Osmolality Calculated 274 mOsm/kg (285-295); Potassium 4.3 mmol/L (3.5-5.1); Sodium 132 mmol/L (136-145); Total Bilirubin 0.3 mg/dL (0.15-1.2); Total Protein 6.9 g/dL (6.6-8.7)
[2022-02-15 10:19] LABS: Creatinine Clr Calc Pharmacy 148.5976
[2022-02-16] MEDS: ondansetron 2 mg/ML SDV 2 mL 8 MG IVP (10:57)
[2022-02-16] MEDS: sodium chloride 0.9% 250 ML 75 ML IV (13:58)
[2022-02-16] MEDS: CARBOplatin 300 MG in sodium chloride 0.9% 500 ML 530 MG IV (13:58)
[2022-02-16 15:14] VITALS: BP 95/67; PULSE 105; RESP 16; TEMP 36.5; O2SAT 98
[2022-02-22 09:25] VITALS: BMI 24.2
[2022-02-22 09:34] LABS: Basophils % 0.7 %; Eosinophils % 1.4 %; Hematocrit 32.9 % (42.0-52.0); Hemoglobin 10.9 g/dL (11.7-16.6); Lymphocytes # 0.3 10^3/uL (0.8-4.8); Lymphocytes % 19.6 %; Mean Corpuscular HGB Conc 33.1 g/dL (30.0-36.0); Mean Corpuscular Volume 93.5 fl (80-94); Mean Platelet Volume 10.2 fL (7.4-10.4); Monocytes # 0.1 10^3/uL (0.2-0.9); Monocytes % 6.8 %; Neutrophils # 1.06 10^3/uL (1.8-7.7); Neutrophils % 71.5 %; Nucleated Red Blood Cells % 0 %; Platelet Count 92 10^3/cmm (130-400); Red Blood Count 3.52 10^6/uL (4.1-5.3); Red Cell Distribution Width 15.1 % (12.1-15.1); White Blood Count 1.5 10^3/uL (4.0-10.0)
[2022-02-22 09:54] LABS: Alanine Aminotransferase 13 U/L (0-41); Albumin Level 3.3 g/dL (3.5-5.2); Alkaline Phosphatase 96 U/L (40-130); Aspartate Amino Transferase 11 U/L (0-40); Blood Urea Nitrogen 11 mg/dL (6-20); Calcium 9.3 mg/dL (8.5-10.5); Carbon Dioxide 28 mmol/L (22-29); Chloride 100 mmol/L (98-107); Globulin 3.6 g/dL (1.3-4.6); Glomerular Filtration Rate 140.4 mL/min (90-130); Glucose 117 mg/dL (65-115); Osmolality Calculated 276 mOsm/kg (285-295); Sodium 133 mmol/L (136-145); Total Bilirubin 0.3 mg/dL (0.15-1.2); Total Protein 6.9 g/dL (6.6-8.7)
[2022-02-25 09:04] VITALS: BP 93/67; PULSE 98; RESP 16; TEMP 36.4; O2SAT 99
[2022-02-25 09:28] LABS: Basophils % 0.5 %; Eosinophils % 1.1 %; Hemoglobin 11.1 g/dL (11.7-16.6); Lymphocytes # 0.4 10^3/uL (0.8-4.8); Lymphocytes % 20.1 %; Mean Corpuscular HGB Conc 32.6 g/dL (30.0-36.0); Mean Corpuscular Hemoglobin 30.7 pg (28.0-34.0); Mean Corpuscular Volume 93.9 fl (80-94); Mean Platelet Volume 10.1 fL (7.4-10.4); Monocytes # 0.3 10^3/uL (0.2-0.9); Monocytes % 14.1 %; Neutrophils # 1.17 10^3/uL (1.8-7.7); Neutrophils % 63.7 %; Nucleated Red Blood Cells % 0 %; Platelet Count 151 10^3/cmm (130-400); Red Blood Count 3.62 10^6/uL (4.1-5.3); White Blood Count 1.8 10^3/uL (4.0-10.0)
--- NOTE | 2022-02-25 10:23 | PC.NURSE ---
Lab results shown to Dr. Babcock and reviewed with pt. Pt stated he had burning in throat when he swallows, from radiation . Pt voiced no other complaints. Counts still too low for tx today. Per Dr. Babcock pt is to return 03/01/22 to recheck CBC, office visit and possible last chemo tx. Pt voiced understanding./lc
[2022-03-01 08:44] LABS: Basophils % 0.7 %; Eosinophils % 1.1 %; Hematocrit 37.3 % (42.0-52.0); Hemoglobin 12.5 g/dL (11.7-16.6); Lymphocytes # 0.4 10^3/uL (0.8-4.8); Lymphocytes % 15.6 %; Mean Corpuscular HGB Conc 33.5 g/dL (30.0-36.0); Mean Corpuscular Hemoglobin 31.9 pg (28.0-34.0); Mean Corpuscular Volume 95.2 fl (80-94); Mean Platelet Volume 9.5 fL (7.4-10.4); Monocytes # 0.6 10^3/uL (0.2-0.9); Monocytes % 19.9 %; Neutrophils % 61.6 %; Nucleated Red Blood Cells % 0 %; Platelet Count 312 10^3/cmm (130-400); Red Blood Count 3.92 10^6/uL (4.1-5.3); Red Cell Distribution Width 17.4 % (12.1-15.1); White Blood Count 2.8 10^3/uL (4.0-10.0)
[2022-03-01 09:14] LABS: Alanine Aminotransferase 10 U/L (0-41); Albumin Level 3.5 g/dL (3.5-5.2); Alkaline Phosphatase 107 U/L (40-130); Anion Gap 13.1 (5-19); Aspartate Amino Transferase 18 U/L (0-40); Blood Urea Nitrogen 9 mg/dL (6-20); Calcium 9.6 mg/dL (8.5-10.5); Carbon Dioxide 26 mmol/L (22-29); Chloride 97 mmol/L (98-107); Globulin 3.9 g/dL (1.3-4.6); Glomerular Filtration Rate 117.5 mL/min (90-130); Glucose 124 mg/dL (65-115); Osmolality Calculated 274 mOsm/kg (285-295); Potassium 4.1 mmol/L (3.5-5.1); Sodium 132 mmol/L (136-145); Total Bilirubin 0.2 mg/dL (0.15-1.2); Total Protein 7.4 g/dL (6.6-8.7)
[2022-03-02 08:55] LABS: Basophils % 0.7 %; Eosinophils % 0.7 %; Hematocrit 36.6 % (42.0-52.0); Hemoglobin 11.9 g/dL (11.7-16.6); Lymphocytes # 0.4 10^3/uL (0.8-4.8); Lymphocytes % 14.2 %; Mean Corpuscular HGB Conc 32.5 g/dL (30.0-36.0); Mean Corpuscular Hemoglobin 31.2 pg (28.0-34.0); Mean Corpuscular Volume 96.1 fl (80-94); Mean Platelet Volume 9.5 fL (7.4-10.4); Monocytes # 0.6 10^3/uL (0.2-0.9); Monocytes % 18.9 %; Neutrophils # 1.96 10^3/uL (1.8-7.7); Neutrophils % 64.8 %; Nucleated Red Blood Cells % 0 %; Platelet Count 348 10^3/cmm (130-400); Red Blood Count 3.81 10^6/uL (4.1-5.3); Red Cell Distribution Width 17.5 % (12.1-15.1)
[2022-03-02 09:22] VITALS: BP 103/64; PULSE 83; RESP 16; TEMP 36.4; O2SAT 100
[2022-03-02] MEDS: sodium chloride 0.9% 250 ML 75 ML IV (09:49)
[2022-03-02] MEDS: ondansetron 2 mg/ML SDV 2 mL 8 MG IVP (09:50)
[2022-03-02] MEDS: CARBOplatin 300 MG in sodium chloride 0.9% 500 ML 530 MG IV (11:03)
[2022-03-02 12:33] VITALS: BP 96/65; PULSE 94; RESP 16; TEMP 36.6; O2SAT 97
== END 2022-03-04 10:49 | disposition home or self-care (01) ==
PROVIDERS: Internal Medicine Hematology & Oncology; PCP Nurse Practitioner; Visit Provider Radiology Radiation Oncology
DX: C34.12 Malignant neoplasm of upper lobe, left bronchus or lung; C78.01 Secondary malignant neoplasm of right lung; C77.8 Secondary and unspecified malignant neoplasm of lymph nodes of multiple regions; F17.210 Nicotine dependence, cigarettes, uncomplicated; Z79.899 Other long term (current) drug therapy; Z51.0 Encounter for antineoplastic radiation therapy
CPT/HCPCS: 36415; 36591; 71046; 77336; 77386; 80053; 85025; 87040; 96365; 96367; 96368; 96375; 96413; 96415; 96417; 96523; 99024; 99212; 99213; 99214; J1100; J2405; J7040; J7050; J9045; J9264

== ENCOUNTER 2022-03-05 08:53 | Oncology outpatient (recurring) (ONCR) | payer OTHER, SELFPAY ==
--- NOTE | 2022-03-05 09:08 | N.ONRD TS_ITS ---
Radiation OncologyTreatment Summary Patient Name: Billy Capone Date of : 1965 Date of Service: 03/05/2022 Attending Physician: Eric Burr M.D. Billy Capone has completed thoracic radiotherapy for the management of a clinical stage BRISEIDA ([id number]) non-small cell lung cancer. The patient was evaluated at the [facility] in [place], [place] for a persistent cough. A chest radiograph revealed a large left upper lobe mass, left hilar adenopathy, and a right lower lobe nodule. A thoracic CT scan ordered on December 08, 2021 described a 9.8 cm x 9.1 cm x 8.5 cm left upper lobe mass, 0.5 cm right lower lobe nodule, subcentimeter nodules in the right upper lobe and left lower lobe, hilar and mediastinal lymphadenopathy. A PET obtained on December 14, 2021 confirmed FDG activity within left upper lobe lung mass (SUV 21), and adjacent left upper lobe mass (SUV 9.1), right lower lobe nodule (SUV 6), and metabolic activity within the left hilar lymph, subcarinal, and paratracheal lymph nodes. A bronchoscopy with endobronchial ultrasound-guided biopsy performed on December 15, 2021. The pathology report diagnosed metastatic adenocarcinoma from the lymph node station 7 specimen. An MRI of the head identified a 4 mm enhancing lesion in the medial aspect of the left cerebellum that was suspicious but indeterminate for metastatic lesion. Radiation therapy was delivered between the dates of January 19, 2022 through March 04, 2022. A prescribed dose of 60 Gy was delivered in 30 fractions encompassing 45 elapsed days. The left lung mass mediastinal lymph nodes were treated utilizing an intensity modulated radiotherapy plan with a step and shoot treatment technique. The plan required ten gantry angles (0???, 30???, 60???, 90???, 120???, 150???, 190???, 220???, 320???, and 340???) replicating an arc. The collimator rotations were 10??? to 140??? to minimize MLC excursion. The field sizes spanned 8.4 cm x 15.5 cm to 14 cm x 21 cm. The SSDs measured a minimum of 84.7 cm to a maximum of 89.9 cm. The ports delivered 269 MU, 237 MU, 202 MU, 179 MU, 157 MU, 141 MU, 184 MU, 99 MU, 186 MU, and 234 MU corresponding to the gantry angles described. Low energy photons were prescribed. All treatments were performed with the ZoomSafer linear accelerator and an isocentric technique. The dose was calculated by Anisotropic Analytic Algorithm with the plan normalized to deliver 100% of the prescription dose to 95% of the planning target volume. He was prescribed Carboplatin (AUC 2) and Abraxane (80 mg/m???) weekly during therapy (January 19, 2022 to March 02, 2022) under the care of Mick Babcock M.D. Signed by: Eric Burr 04/26/2022 3:20:09 PM
== END 2022-03-09 23:59 | disposition home or self-care (01) ==
PROVIDERS: PCP Nurse Practitioner; Visit Provider Radiology Radiation Oncology
DX: Z51.11 Encounter for antineoplastic chemotherapy (principal); C34.12 Malignant neoplasm of upper lobe, left bronchus or lung; C78.01 Secondary malignant neoplasm of right lung; C77.8 Secondary and unspecified malignant neoplasm of lymph nodes of multiple regions; F17.210 Nicotine dependence, cigarettes, uncomplicated; Z79.899 Other long term (current) drug therapy; R05.3 Chronic cough; D61.818 Other pancytopenia; D70.1 Agranulocytosis secondary to cancer chemotherapy; T45.1X5A Adverse effect of antineoplastic and immunosuppressive drugs, initial encounter; R13.19 Other dysphagia; Z79.891 Long term (current) use of opiate analgesic; Z51.0 Encounter for antineoplastic radiation therapy; R53.83 Other fatigue; Z53.9 Procedure and treatment not carried out, unspecified reason; K20.80 Other esophagitis without bleeding; Z87.891 Personal history of nicotine dependence
CPT/HCPCS: 77014; 77336; 77386; 77427

== ENCOUNTER 2022-03-20 09:40 | Outpatient (CLI) | payer OTHER, SELFPAY ==
--- NOTE | 2022-03-20 08:43 | PETR_ITS ---
PROCEDURE INFORMATION: Exam: PET/CT Skull Base to Mid-thigh Exam date and time: 03/20/2022 10:56 AM Age: 56 years old Clinical indication: Condition or disease; Primary cancer: Lung cancer; Follow-up oncological assessment; Additional info: Follow up, akash. History of chemotherapy 03/10/2022 and radiation therapy 03/13/2022. LABS AND CLINICAL REPORTS: Glucose: 120 mg/dl Treatment strategy for malignancy (PET staging): Restaging (PS) TECHNIQUE: Imaging protocol: Following at least four-hour fasting and following the injection of F-18-FDG, low dose CT images were obtained. Then, PET images were obtained. Attenuation corrected images were constructed using the CT scan. Fused images of PET and CT were reviewed. The standardized uptake values (SUV) reported below are maximum values within a region of interest, expressed in gm/ml. Exam includes orbital meatal line to mid-thigh. Radiopharmaceutical: 14.51 mCi F-18 FDG (Fluorodeoxyglucose), IV. Time of imaging post radiopharmaceutical administration: 1 hour Injection site: Left antecubital COMPAR[id number] 12/14/2021 1:47 PM, CTA head and neck 02/23/2022, MRI brain 01/04/2022, CT chest 12/08/2021 FINDINGS: Brain: Visualized brain has normal physiologic uptake. Pharynx: Bilateral palatine tonsillar uptake is noted, SUV max 4.7 on the right and 4.4 on the left (previously 4.9 on the right and 4.3 on the left. There is physiologic appearing uptake in the region of the vocal cords and cricoid cartilage, greatest on the right, SUV max 9.3 without evidence of a discrete lesion. Larynx: No abnormal uptake. Lungs, pleura and trachea: Uptake within a posterior left upper lobe mass has decreased, SUV max 8.4 (previously 21.4) and the mass is decreased in size measuring approximately 7.0 x 5.5 cm on series 3, image 62 (previously measuring approximately 9 cm in diameter in the axial plane). A solid right lower lobe 1.2 cm in diameter nodule containing a punctate calcification on series 3, image 80 is noted, SUV max 3.0 (previously measuring 1.5 cm with a previous SUV max 6.0). Smaller scattered bilateral pulmonary nodules appears slightly less prominent and are not radiotracer avid. Similar bilateral calcified granulomas. Heart: Normal physiologic uptake. Mediastinal space: No abnormal uptake. Liver: No abnormal uptake. Gallbladder and bile ducts: No abnormal uptake. Pancreas: No abnormal uptake. Spleen: No abnormal uptake. Calcified granulomas in the spleen are present. Adrenal glands: No abnormal uptake. Kidneys and ureters: Normal physiologic uptake. Stomach and bowel: Uptake in the distal rectum persists and is likely physiologic, SUV max 6.6 (previously 5.1). Vasculature: No abnormal uptake. Diffuse atherosclerotic changes are present. Lymph nodes: There is been an interval decrease in uptake within mediastinal lymph nodes, many of which are similarly calcified. For example a 5 mm pretracheal lymph node on series 3, image 66 is no longer radiotracer avid (previously measuring 1 cm with a previous SUV max 5.2). Decreased prominence of subcarinal lymph nodes which are not well delineated without intravenous contrast within SUV max 6.3 (previously 11.0). Uptake within left hilar lymph nodes is decreased. The size of these lymph nodes is not well delineated without intravenous contrast. Uptake within left hilar lymph nodes demonstrates an SUV max 4.1 (previously 11.1). Bones/joints: No abnormal uptake in the visualized axial and appendicular skeleton. Anterior and posterior metallic fusion extending from L3 through S1 is noted. There is moderate thoracic spine kyphosis. Degenerative spondylosis throughout the spine is noted. Soft tissues: No abnormal uptake in the visualized head, neck, chest, abdomen, pelvis, and extremities. A non radiotracer avid anterior superior right chest wall subcutaneous soft tissue density nodule adjacent to the skin surface is new compared to the prior PET-CT and not radiotracer avid measuring approximately 1.3 cm in diameter on series 3, image 62. METRICS: Mediastinal blood pool: SUV max 1.9 Liver uptake: SUV max 2.9 [facility] [id number] IMPRESSION: 1. Compared with the prior PET-CT there has been interval decrease in size of the left upper lobe neoplastic mass with decreased uptake (SUV max 8.4, previously 21.4) consistent with partial response to therapy. 2. Decreased size of a right lower lobe nodule compared with the prior PET-CT with interval decrease in uptake (SUV max 3.0, previously 6.0) consistent with partial response to therapy. 3. Similar small additional bilateral pulmonary nodules without elevated uptake compared with the prior PET-CT. Assessment of small nodules can be limited by PET-CT. 4. Persistent but decreased uptake within mediastinal and left hilar lymph nodes consistent with partial response to therapy. 5. New non radiotracer avid anterior superior right chest wall subcutaneous nodule adjacent to the skin surface without elevated uptake suggestive of scarring. 6. Similar uptake in the bilateral palatine tonsils, likely infectious or inflammatory in etiology. A neoplastic etiology is a less likely consideration. 7. Additional nonurgent findings as detailed above.
== END 2022-03-20 09:41 | disposition home or self-care (01) ==
LOC: RAD 09:40
PROVIDERS: PCP Nurse Practitioner; Visit Provider Internal Medicine Hematology & Oncology
DX: C34.12 Malignant neoplasm of upper lobe, left bronchus or lung (principal)
CPT/HCPCS: 78815; A9552

== ENCOUNTER 2022-04-02 09:04 | Oncology outpatient (recurring) (ONCR) | payer OTHER, SELFPAY ==
[2022-03-11 09:51] LABS: Basophils # 0.1 10^3/uL (0.0-0.1); Basophils % 1.2 %; Eosinophils % 0.7 %; Hematocrit 34.9 % (42.0-52.0); Hemoglobin 11.3 g/dL (11.7-16.6); Lymphocytes # 0.4 10^3/uL (0.8-4.8); Lymphocytes % 10.2 %; Mean Corpuscular HGB Conc 32.4 g/dL (30.0-36.0); Mean Corpuscular Hemoglobin 31.4 pg (28.0-34.0); Mean Corpuscular Volume 96.9 fl (80-94); Mean Platelet Volume 9.4 fL (7.4-10.4); Monocytes # 0.7 10^3/uL (0.2-0.9); Monocytes % 16.6 %; Neutrophils # 2.97 10^3/uL (1.8-7.7); Neutrophils % 70.6 %; Nucleated Red Blood Cells % 0 %; Platelet Count 321 10^3/cmm (130-400); Red Cell Distribution Width 18.3 % (12.1-15.1); White Blood Count 4.2 10^3/uL (4.0-10.0)
[2022-03-11 10:02] LABS: Alanine Aminotransferase 9 U/L (0-41); Albumin Level 3.5 g/dL (3.5-5.2); Alkaline Phosphatase 98 U/L (40-130); Anion Gap 16.4 (5-19); Aspartate Amino Transferase 12 U/L (0-40); Blood Urea Nitrogen 9 mg/dL (6-20); Calcium 8.8 mg/dL (8.5-10.5); Carbon Dioxide 26 mmol/L (22-29); Chloride 102 mmol/L (98-107); Globulin 3.2 g/dL (1.3-4.6); Glomerular Filtration Rate 140.4 mL/min (90-130); Glucose 99 mg/dL (65-115); Osmolality Calculated 289 mOsm/kg (285-295); Potassium 4.4 mmol/L (3.5-5.1); Sodium 140 mmol/L (136-145); Total Bilirubin 0.2 mg/dL (0.15-1.2); Total Protein 6.7 g/dL (6.6-8.7)
--- NOTE | 2022-04-02 10:22 | ONCRAD EPV_ITS ---
Radiation Oncology Established Patient Visit Patient: Billy Capone [id number] : 1965 Age: 56 Sex: Male Dictated by: Chris Azul Date of Service: 04/02/2022 Referring Physician(s) : Mick Babcock MD Diagnosis: C34.30 - Malignant neoplasm of lower lobe, unspecified bronchus or lung, Diagnosed 12/15/2021 (Active) Stage DALE, T4, N2, M1a Radiotherapy to Date: Course: Lung 2021, Treatment Site: [facility], Ref. ID: [id number], Energy: 6X, Dose/Fx (cGy): 200, #Fx: 30 / 30, Dose Correction (cGy): 0, Total Dose (cGy): 6,000, Start Date: 01/19/2022, End Date: 03/05/2022, Elapsed Days: 45 Current History: Current Medications: Allergies: almonds. Current Complaints / Review of Systems: . Mr. Capone returns for follow-up. He underwent concurrent chemotherapy and radiation between 01/19/2022 and 03/04/2022. He received 6000 cGy in 30 fractions as well as concomitant carboplatin and Abraxane. He seems to be recovering well from treatment. He has a good appetite. He has gained weight. He has some shortness of breath with exertion and cough with blood-streaked sputum at times. His breathing has improved since completing treatment. He has intermittent sharp left-sided chest pain. He was on anti-inflammatories before chemotherapy and radiation. He is not taking any now. He is experiencing significant dyspepsia and is taking Tums with moderate relief. 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 Vital Signs: Performed on 04/02/2022 8:45 AM BMI - 24.536 kg/m2 (high), Height - 70 in, Weight - 171 lbs, Temperature - 97.6 f, Pulse - 95 /min, Respiration - 16 /min, O2 Sat - 100 %, Pain - 0, Fatigue - 0 and BP - 93/ 59 mm(hg)(/low). Physical Exam: General: Alert and oriented x 3. No acute distress. HEENT: Normocephalic, atraumatic. Extraocular Movements Intact: Sclerae anicteric. Oral cavity is clear without lesions, masses or ulcers. NECK: Supple without supraclavicular or jugular lymphadenopathy. LUNGS: Clear to percussion and auscultation bilaterally without rales, rhonchi or wheeze. HEART: Regular rate and rhythm, normal S1 and S2 without murmur, gallop or rub. MUSCULOSKELETAL: He had some reproducible sharp pain with palpation along the left anterior costal chondral junctions. He also has some pain lateral to the left upper thoracic spine in the area of the costal vertebral junctions. No other areas of bone tenderness. ABDOMEN: Soft, nontender, nondistended without masses or organomegaly. Bowell sounds are present. EXTREMITIES: No peripheral edema is identified. Limited motor and sensory examination are grossly intact and symmetric bilaterally. NEUROLOGIC: Cranial nerves II ???XII are grossly intact. Normal gait, no ataxia. Performance Status: ECOG 1 Lab: None pending. Pathology: Primary, c34.30 - malignant neoplasm of lower lobe, unspecified bronchus or lung, Diagnosed 12/15/2021 (active) stage dale, t4, n2, m1a. Imaging: PET scan performed 03/20/2022 shows dramatic improvement. In the left upper lung mass the SUV has reduced from 21.4-8.4. The mass is also smaller. The right lower lobe mass has SUV of 3.0, previously 6.0. The mass is also smaller. He has also had improvement of the abnormal lymph nodes in the mediastinal area. He does have uptake that is thought to be physiologic in the pharynx. Particularly in the area of the right arytenoid base and cricoid cartilage there is an SUV of 9.3. No lesions seen. Impression: Significant improvement noted on PET scan. He will most likely now gone to immunotherapy for a year. He sees Dr. Babcock next week. I discussed the PET scan in detail. We discussed the right lung nodule and that it may require SBRT at some point in the future. I discussed the uptake noted in the area of the right arytenoid and cricoid. I told him if he develops any hoarseness or sore throat that he will need an ENT exam. We discussed that the brain has normal physiologic uptake, but that a CT or MRI would give more detail. He appears to have costochondritis. He has been off Aleve and ibuprofen since starting chemotherapy. Now that he is off chemotherapy I told him he could cautiously use either ibuprofen or Aleve. 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 I discussed the ones that are available [id number]. I also discussed that he needs to have an excellent fluid intake with the anti-inflammatories and that they need to be taken with food. Plan: He has follow-up with Dr. Babcock next week. He will return to Dr. Burr for new problems and possibly for SBRT to the right lung. Signed by: 04/02/2022 10:21:30 AM <<Signature on File>> Time spent with patient: CPT Code: CPT Code:
== END 2022-04-06 23:59 | disposition home or self-care (01) ==
PROVIDERS: Internal Medicine Hematology & Oncology; PCP Nurse Practitioner; Visit Provider Specialist
DX: C34.12 Malignant neoplasm of upper lobe, left bronchus or lung (principal)
CPT/HCPCS: 36415; 80053; 85025; 99024; 99214

== ENCOUNTER 2022-05-06 07:22 | Outpatient (CLI) | payer OTHER, SELFPAY ==
[2022-05-06] MEDS: iohexol 350 mg/mL 500 mL Btl (per mL) IV (07:50)
--- NOTE | 2022-05-06 08:30 | CT_ITS ---
WS: [id number] CTA HEAD TECHNIQUE: Contrast enhanced CTA of the head with coronal and sagittal reformatted images and maximum intensity projection (MIP) images. NASCET criteria utilized. CLINICAL INFORMATION: compare to previous COMPARISON: MRI January 04, 2022 DLP: 971.[address] scans at [facility] use at least one of these dose optimization techniques: automated e xposure control; mA and/or kV adjustment per patient size (includes targeted exams where dose is matc hed to clinical indication); or iterative reconstruction. FINDINGS: Noncontrast head CT is normal. Normal bahena-white differentiation. No extra-axial fluid brett ections. Previously described enhancing lesion in the LEFT paramedian cerebellum not well seen on this study. There is no definitive enhancement in this area to indicate high flow vascular malformation. Findings remain suspicious for metastatic disease and recommend interval follow-up with MRI head without and with gadolinium enhancement to assess evolution. Distal vertebral arteries are patent. Basilar artery is patent. Normal vascularity to the BASIN OPERATOR territo ry bilaterally. Persistent RIGHT BASIN OPERATOR. Both ICAs are patent at the skull base. Normal vascularit y to the PATRICIA and MCA territories bilaterally. No evidence of high-grade proximal stenosis or aneurysm . Mastoid air cells and paranasal sinuses are well aerated. Mild mucosal thickening in the LEFT posteri or ethmoid air cells. Dural venous sinuses are patent. Normal posterior nasopharynx. Normal paraphary ngeal fat. CT/CT angio head [id number] IMPRESSION: 1. Previously described small enhancing LEFT cerebellar lesion not visualized on this study. Recommend MRI head without and with gadolinium enhancement in or maritza to evaluate change from previous. Metastatic lesion remains a primary consi deration. 2. No proximal flow-limiting intracranial stenosis. Normal variant persistent RIGHT BASIN OPERATOR. 3. No other suspicious findings.
== END 2022-05-06 07:23 | disposition home or self-care (01) ==
LOC: RAD 07:24
PROVIDERS: PCP Nurse Practitioner; Visit Provider Internal Medicine Hematology & Oncology
DX: C34.92 Malignant neoplasm of unspecified part of left bronchus or lung (principal)
CPT/HCPCS: 70496; Q9967

== ENCOUNTER 2022-05-07 08:11 | Oncology outpatient (recurring) (ONCR) | payer OTHER, SELFPAY ==
--- NOTE | 2022-04-27 | CT_ITS ---
Radiation Therapy Planning CT images; total exam DLP: 1128.07 mGy-cm MTDD
--- NOTE | 2022-05-07 08:22 | N.ONRD TS_ITS ---
SABR Treatment Summary Patient Name: Billy Capone Date of : 1965 Date of Service: 05/07/2022 Attending Physician: Eric Burr M.D. Billy Capone has completed stereotactic ablative body radiotherapy for the management a clinical stage BRISEIDA ([id number]) non-small cell lung cancer. The patient was evaluated at the [facility] in [place], [place] for a persistent cough. A chest radiograph revealed a large left upper-lobe mass, left hilar adenopathy, and a right lower-lobe nodule. A thoracic CT scan ordered on December 08, 2021 described a 9.8 cm x 9.1 cm x 8.5 cm left upper-lobe mass, 0.5 cm right lower-lobe nodule, subcentimeter nodules in the right upper-lobe and left lower-lobe, hilar and mediastinal lymphadenopathy. A PET obtained on December 14, 2021 confirmed FDG activity within left upper-lobe lung mass (SUV 21), and adjacent left upper -lobe mass (SUV 9.1), right lower-lobe nodule (SUV 6), and metabolic activity within the left hilar lymph, subcarinal, and paratracheal lymph nodes. A bronchoscopy with endobronchial ultrasound-guided biopsy was performed on December 15, 2021. The pathology report diagnosed metastatic adenocarcinoma from the lymph node station 7 specimen. An MRI of the head identified a 4 mm enhancing lesion in the medial aspect of the left cerebellum that was suspicious but indeterminate for metastatic lesion. Radiation therapy was delivered to the left lung mass and mediastinal lymphadenopathy between the dates of January 19, 2022 through March 04, 2022. A prescribed dose of 60 Gy was delivered in 30 fractions encompassing 45 elapsed days. SABR was delivered between the dates of May 03, 2022 through May 07, 2022. A prescribed dose of 54 Gy was delivered in three fractions encompassing 5 elapsed days. The right lower-lobe lesion was treated utilizing an intensity modulated radiotherapy plan with a step and shoot treatment technique. The plan required seven gantry angles (150???,180???, 210???, 240???, 260???, 290???, and 310???) with a collimator rotation of 0??? in a partial arc design. The field sizes measured spanned 5.3 cm x 5.5 cm to 5.8 cm x 5.5 cm. The SSDs measured a minimum of 90.9 cm to a maximum of 93.8 cm. The ports delivered 846 MU, 980 MU, 691 MU, 562 MU, 1225 MU, 1118 MU, and 1236 MU corresponding to the gantry angles described. Low energy photons were prescribed. All treatments were performed with the [employer] linear accelerator and an isocentric technique. The dose was calculated by Anisotropic Analytic Algorithm with the plan normalized to deliver 100% of the prescription dose to 95% of the planning target volume. Signed by: Eric Burr 05/07/2022 8:48:48 AM
--- NOTE | 2022-05-07 09:41 | ONCRAD TMN_ITS ---
SABR Treatment Management Note Patient Name: Billy Capone Date of : 1965 Date of Service: 05/07/2022 Attending Physician: Eric Burr M.D. Billy Capone is a 56 year-old white male diagnosed a clinical stage BRISEIDA ([id number]) non-small cell lung cancer. The patient was evaluated at the [facility] in [place], [place] for a persistent cough. A chest radiograph revealed a large left upper-lobe mass, left hilar adenopathy, and a right lower-lobe nodule. A thoracic CT scan ordered on December 08, 2021 described a 9.8 cm x 9.1 cm x 8.5 cm left upper-lobe mass, 0.5 cm right lower-lobe nodule, subcentimeter nodules in the right upper-lobe and left lower-lobe, hilar and mediastinal lymphadenopathy. A PET obtained on December 14, 2021 confirmed FDG activity within left upper-lobe lung mass (SUV 21), and adjacent left upper-lobe mass (SUV 9.1), right lower-lobe nodule (SUV 6), and metabolic activity within the left hilar lymph, subcarinal, and paratracheal lymph nodes. A bronchoscopy with endobronchial ultrasound-guided biopsy was performed on December 15, 2021. The pathology report diagnosed metastatic adenocarcinoma from the lymph node station 7 specimen. An MRI of the head identified a 4 mm enhancing lesion in the medial aspect of the left cerebellum that was suspicious but indeterminate for metastatic lesion. Radiation therapy was delivered to the left lung mass and mediastinal lymphadenopathy between the dates of January 19, 2022 through March 04, 2022. A prescribed dose of 60 Gy was delivered in 30 fractions encompassing 45 elapsed days. The patient has received 54 Gy of a prescribed 54 Huang (SABR) delivered with an intensity modulated radiotherapy plan utilizing a step and shoot treatment technique. Upon review of systems, he denied any changes in his pulmonary function. On physical examination, the patient weighed 175 lbs. His temperature was 97.8 ???F and the blood pressure was 110/74 mmHg. The pulse was 95 bpm and his respiratory rate was 18. Oxygen saturation while breathing ambient air was 97%. There was no erythema within the treatment preciado. Stereotactic ablative body radiotherapy was completed today. He will return for post-radiotherapy evaluation in 1 month. Signed by: Eric Burr 05/07/2022 9:50:27 AM
== END 2022-05-07 23:59 | disposition home or self-care (01) ==
PROVIDERS: PCP Nurse Practitioner; Visit Provider Radiology Radiation Oncology
DX: Z51.0 Encounter for antineoplastic radiation therapy (principal); C34.12 Malignant neoplasm of upper lobe, left bronchus or lung; C78.01 Secondary malignant neoplasm of right lung; C77.8 Secondary and unspecified malignant neoplasm of lymph nodes of multiple regions; F17.210 Nicotine dependence, cigarettes, uncomplicated; Z79.899 Other long term (current) drug therapy; Z95.828 Presence of other vascular implants and grafts
CPT/HCPCS: 77300; 77301; 77334; 77336; 77338; 77373; 77470; 99024; 99214

== ENCOUNTER 2022-05-12 07:29 | Outpatient (CLI) | payer OTHER, SELFPAY ==
--- NOTE | 2022-05-12 07:42 | USCV_ITS ---
Billy Capone Age: 56 Gender: M : 1965 Exam Date: 05/12/2022 07:52 Ordering Phys: Mick Babcock MD Technologist: [place] [facility] [place]ication: f/u exam PROCEDURES: Comparison:. 02/16/22 Venous duplex imaging was performed in only the right upper extremity. In addition, the basilic vein and cephalic vein. In addition, the radial vein and ulnar vein. FINDINGS: Small caliber right subclavian vein with no occlusion or thrombus seen. No DVT upper right extremity. Previously described right subclavian and axillary vein thrombus have resolved. CONCLUSIONS No right upper extremity DVT. Resolution of right subclavian and axillary DVT. Dr. Nevin Sánchez DO (Electronically Signed) Final Date: 12 May 2022 08:45 S
== END 2022-05-12 07:30 | disposition home or self-care (01) ==
PROVIDERS: PCP Nurse Practitioner; Visit Provider Internal Medicine Hematology & Oncology
DX: R60.9 Edema, unspecified (principal); C34.92 Malignant neoplasm of unspecified part of left bronchus or lung
CPT/HCPCS: 93971; 99214

== ENCOUNTER 2022-05-31 10:30 | Oncology outpatient (recurring) (ONCR) | payer OTHER, SELFPAY ==
[2022-05-12 10:40] VITALS: BP 94/67; PULSE 97; RESP 16; TEMP 36.7; O2SAT 97
[2022-05-12 11:05] LABS: Basophils # 0.1 10^3/uL (0.0-0.1); Basophils % 1.1 %; Eosinophils # 0.2 10^3/uL (0.0-0.8); Eosinophils % 3.8 %; Hematocrit 42.5 % (42.0-52.0); Hemoglobin 14.2 g/dL (11.7-16.6); Lymphocytes # 0.7 10^3/uL (0.8-4.8); Mean Corpuscular HGB Conc 33.4 g/dL (30.0-36.0); Mean Corpuscular Hemoglobin 34.1 pg (28.0-34.0); Mean Corpuscular Volume 102.2 fl (80-94); Mean Platelet Volume 9.3 fL (7.4-10.4); Monocytes # 0.6 10^3/uL (0.2-0.9); Neutrophils # 4.68 10^3/uL (1.8-7.7); Neutrophils % 73.3 %; Nucleated Red Blood Cells % 0 %; Platelet Count 297 10^3/cmm (130-400); Red Blood Count 4.16 10^6/uL (4.1-5.3); Red Cell Distribution Width 12.7 % (12.1-15.1); White Blood Count 6.4 10^3/uL (4.0-10.0)
[2022-05-12 11:20] LABS: Alanine Aminotransferase 10 U/L (0-41); Albumin Level 3.7 g/dL (3.5-5.2); Alkaline Phosphatase 88 U/L (40-130); Anion Gap 13.8 (5-19); Aspartate Amino Transferase 14 U/L (0-40); Blood Urea Nitrogen 14 mg/dL (6-20); Calcium 9.1 mg/dL (8.5-10.5); Carbon Dioxide 25 mmol/L (22-29); Chloride 105 mmol/L (98-107); Globulin 3.7 g/dL (1.3-4.6); Glomerular Filtration Rate 117.5 mL/min (90-130); Glucose 100 mg/dL (65-115); Osmolality Calculated 289 mOsm/kg (285-295); Potassium 4.8 mmol/L (3.5-5.1); Sodium 139 mmol/L (136-145); Total Bilirubin 0.2 mg/dL (0.15-1.2); Total Protein 7.4 g/dL (6.6-8.7)
[2022-05-17 08:46] VITALS: BP 101/72; PULSE 96; RESP 16; TEMP 36.8; O2SAT 95
[2022-05-17 08:59] LABS: Basophils # 0.1 10^3/uL (0.0-0.1); Basophils % 1.1 %; Eosinophils # 0.3 10^3/uL (0.0-0.8); Eosinophils % 3.9 %; Hematocrit 41.4 % (42.0-52.0); Hemoglobin 13.9 g/dL (11.7-16.6); Lymphocytes # 0.6 10^3/uL (0.8-4.8); Lymphocytes % 8.6 %; Mean Corpuscular HGB Conc 33.6 g/dL (30.0-36.0); Mean Corpuscular Hemoglobin 34.4 pg (28.0-34.0); Mean Corpuscular Volume 102.5 fl (80-94); Monocytes # 0.6 10^3/uL (0.2-0.9); Monocytes % 9.6 %; Neutrophils # 4.95 10^3/uL (1.8-7.7); Neutrophils % 76.3 %; Nucleated Red Blood Cells % 0 %; Platelet Count 253 10^3/cmm (130-400); Red Blood Count 4.04 10^6/uL (4.1-5.3); Red Cell Distribution Width 12.2 % (12.1-15.1); White Blood Count 6.5 10^3/uL (4.0-10.0)
[2022-05-17 10:22] LABS: Alanine Aminotransferase 10 U/L (0-41); Albumin Level 3.5 g/dL (3.5-5.2); Alkaline Phosphatase 81 U/L (40-130); Anion Gap 13.9 (5-19); Aspartate Amino Transferase 11 U/L (0-40); Blood Urea Nitrogen 12 mg/dL (6-20); Calcium 9.1 mg/dL (8.5-10.5); Carbon Dioxide 25 mmol/L (22-29); Chloride 102 mmol/L (98-107); Globulin 3.4 g/dL (1.3-4.6); Glomerular Filtration Rate 117.5 mL/min (90-130); Glucose 110 mg/dL (65-115); Osmolality Calculated 284 mOsm/kg (285-295); Potassium 3.9 mmol/L (3.5-5.1); Sodium 137 mmol/L (136-145); Thyroid Stimulating Hormone 1.65 uIU/mL (0.27-4.20); Total Bilirubin 0.2 mg/dL (0.15-1.2); Total Protein 6.9 g/dL (6.6-8.7)
[2022-05-17] MEDS: sodium chloride 0.9% 250 ML 75 ML IV (11:30)
[2022-05-17 11:55] LABS: Hepatitis A Antibody IgM Non-Reactive (Nonreactive); Hepatitis B Core AB, Total Non-Reactive (Nonreactive); Hepatitis B Surface AB 53.9 (11.5-1000); Hepatitis B Surface Antigen Non-Reactive (Nonreactive); Hepatitis C Virus Antibody Non-Reactive (Nonreactive)
[2022-05-17 13:11] VITALS: BP 95/66; PULSE 85; RESP 18; TEMP 36.7; O2SAT 93
[2022-05-24 08:44] VITALS: BP 109/74; PULSE 101; RESP 16; TEMP 36.8; O2SAT 97
[2022-05-24 09:05] LABS: Basophils # 0.1 10^3/uL (0.0-0.1); Eosinophils # 0.3 10^3/uL (0.0-0.8); Eosinophils % 4.5 %; Hematocrit 42.4 % (42.0-52.0); Hemoglobin 14.2 g/dL (11.7-16.6); Lymphocytes # 0.7 10^3/uL (0.8-4.8); Lymphocytes % 11.3 %; Mean Corpuscular HGB Conc 33.5 g/dL (30.0-36.0); Mean Corpuscular Hemoglobin 34.1 pg (28.0-34.0); Mean Corpuscular Volume 101.9 fl (80-94); Mean Platelet Volume 9.2 fL (7.4-10.4); Monocytes # 0.7 10^3/uL (0.2-0.9); Monocytes % 11.1 %; Neutrophils # 4.52 10^3/uL (1.8-7.7); Neutrophils % 71.8 %; Nucleated Red Blood Cells % 0 %; Platelet Count 224 10^3/cmm (130-400); Red Blood Count 4.16 10^6/uL (4.1-5.3); Red Cell Distribution Width 11.6 % (12.1-15.1); White Blood Count 6.3 10^3/uL (4.0-10.0)
[2022-05-24 09:31] LABS: Alanine Aminotransferase 9 U/L (0-41); Albumin Level 3.7 g/dL (3.5-5.2); Alkaline Phosphatase 81 U/L (40-130); Anion Gap 13.9 (5-19); Aspartate Amino Transferase 12 U/L (0-40); Blood Urea Nitrogen 13 mg/dL (6-20); Calcium 9.1 mg/dL (8.5-10.5); Carbon Dioxide 25 mmol/L (22-29); Chloride 99 mmol/L (98-107); Globulin 3.2 g/dL (1.3-4.6); Glomerular Filtration Rate 117.5 mL/min (90-130); Glucose 98 mg/dL (65-115); Osmolality Calculated 278 mOsm/kg (285-295); Potassium 3.9 mmol/L (3.5-5.1); Sodium 134 mmol/L (136-145); Thyroid Stimulating Hormone 1.56 uIU/mL (0.27-4.20); Total Bilirubin 0.2 mg/dL (0.15-1.2); Total Protein 6.9 g/dL (6.6-8.7)
[2022-05-31 09:21] LABS: Basophils # 0.1 10^3/uL (0.0-0.1); Basophils % 1.2 %; Eosinophils # 0.3 10^3/uL (0.0-0.8); Eosinophils % 5.1 %; Hematocrit 43.7 % (42.0-52.0); Hemoglobin 14.6 g/dL (11.7-16.6); Lymphocytes # 0.6 10^3/uL (0.8-4.8); Mean Corpuscular HGB Conc 33.4 g/dL (30.0-36.0); Mean Corpuscular Hemoglobin 34.2 pg (28.0-34.0); Mean Corpuscular Volume 102.3 fl (80-94); Mean Platelet Volume 9.1 fL (7.4-10.4); Monocytes # 0.6 10^3/uL (0.2-0.9); Monocytes % 9.8 %; Neutrophils # 4.42 10^3/uL (1.8-7.7); Neutrophils % 73.4 %; Nucleated Red Blood Cells % 0 %; Platelet Count 257 10^3/cmm (130-400); Red Blood Count 4.27 10^6/uL (4.1-5.3); Red Cell Distribution Width 11.6 % (12.1-15.1)
[2022-05-31 09:50] LABS: Alanine Aminotransferase 8 U/L (0-41); Albumin Level 3.8 g/dL (3.5-5.2); Alkaline Phosphatase 107 U/L (40-130); Anion Gap 13.1 (5-19); Aspartate Amino Transferase 14 U/L (0-40); Blood Urea Nitrogen 9 mg/dL (6-20); Calcium 9.2 mg/dL (8.5-10.5); Carbon Dioxide 26 mmol/L (22-29); Chloride 103 mmol/L (98-107); Globulin 3.4 g/dL (1.3-4.6); Glomerular Filtration Rate 117.5 mL/min (90-130); Glucose 165 mg/dL (65-115); Osmolality Calculated 288 mOsm/kg (285-295); Potassium 4.1 mmol/L (3.5-5.1); Sodium 138 mmol/L (136-145); Thyroid Stimulating Hormone 1.34 uIU/mL (0.27-4.20); Total Bilirubin 0.2 mg/dL (0.15-1.2); Total Protein 7.2 g/dL (6.6-8.7)
[2022-05-31] MEDS: diphenhydrAMINE 50 mg/mL SDV 1mL 12.5 MG IVP (10:23)
[2022-05-31] MEDS: sodium chloride 0.9% 250 ML 75 ML IV (10:24)
[2022-05-31 10:28] VITALS: BP 96/68; PULSE 82; RESP 16; TEMP 36.4; O2SAT 95
[2022-05-31 12:10] VITALS: BP 99/72; PULSE 76; RESP 16; TEMP 36.4; O2SAT 99
== END 2022-05-31 23:59 | disposition home or self-care (01) ==
PROVIDERS: Internal Medicine Hematology & Oncology; Nurse Practitioner Family; PCP Nurse Practitioner; Visit Provider Radiology Radiation Oncology
DX: Z51.12 Encounter for antineoplastic immunotherapy; C34.82 Malignant neoplasm of overlapping sites of left bronchus and lung; C78.01 Secondary malignant neoplasm of right lung; C77.8 Secondary and unspecified malignant neoplasm of lymph nodes of multiple regions; Z79.899 Other long term (current) drug therapy; Z87.891 Personal history of nicotine dependence; C34.12 Malignant neoplasm of upper lobe, left bronchus or lung
CPT/HCPCS: 80053; 84443; 85025; 86705; 86706; 86709; 86803; 87340; 96375; 96413; 96415; 99213; 99214; J1200; J7050; J9173

== ENCOUNTER 2022-06-04 08:35 | Oncology outpatient (recurring) (ONCR) | payer OTHER, SELFPAY ==
--- NOTE | 2022-06-04 08:55 | ONCRAD EPV_ITS ---
Radiation Oncology Follow-Up Note Patient Name: Billy Capone Date of : 1965 Date of Service: 06/04/2022 Attending Physician: Eric Burr M.D. Billy Capone returned to my office this morning for a routinely scheduled follow-up appointment. He completed stereotactic ablative body radiotherapy in April for the management a clinical stage BRISEIDA ([id number]) non-small cell lung cancer. The patient was evaluated at the [facility] in [place], [place] for a persistent cough. A chest radiograph revealed a large left upper-lobe mass, left hilar adenopathy, and a right lower-lobe nodule. A thoracic CT scan ordered on December 08, 2021 described a 9.8 cm x 9.1 cm x 8.5 cm left upper-lobe mass, 0.5 cm right lower-lobe nodule, subcentimeter nodules in the right upper-lobe and left lower-lobe, hilar and mediastinal lymphadenopathy. A PET obtained on December 14, 2021 confirmed FDG activity within left upper-lobe lung mass (SUV 21), and adjacent left upper -lobe mass (SUV 9.1), right lower-lobe nodule (SUV 6), and metabolic activity within the left hilar lymph, subcarinal, and paratracheal lymph nodes. A bronchoscopy with endobronchial ultrasound-guided biopsy was performed on December 15, 2021. The pathology report diagnosed metastatic adenocarcinoma from the lymph node station 7 specimen. An MRI of the head identified a 4 mm enhancing lesion in the medial aspect of the left cerebellum that was suspicious but indeterminate for metastatic lesion. Radiation therapy was delivered to the left lung mass and mediastinal lymphadenopathy between the dates of January 19, 2022 through March 04, 2022. A prescribed dose of 60 Gy was delivered in 30 fractions encompassing 45 elapsed days. SABR was delivered to the right lower-lobe lesion between the dates of May 03, 2022 through May 07, 2022. A prescribed dose of 54 Gy was delivered in three fractions encompassing 5 elapsed days. On review of systems, he patient denied any new pulmonary complaints. On physical examination, he weighed 175 lbs. The temperature was 96.8???F and his blood pressure was 106/71 mmHg. The pulse was 106 bpm and his respiratory rate was 28 breaths per minute. Oxygen saturation while breathing room air was 94 %. In summary, Mr. Capone returned for a routine post-radiotherapy follow-up. There were no sequelae from treatment. He started maintenance immunotherapy (Imfinizi) on May 17, 2026 and will continue follow-up with his medical oncologist. Signed by: Eric Burr 06/04/2022 8:54:58 AM
== END 2022-06-06 23:59 | disposition home or self-care (01) ==
LOC: ONCMED 08:35
PROVIDERS: PCP Nurse Practitioner; Visit Provider Radiology Radiation Oncology
DX: Z51.0 Encounter for antineoplastic radiation therapy (principal); C34.12 Malignant neoplasm of upper lobe, left bronchus or lung; C34.82 Malignant neoplasm of overlapping sites of left bronchus and lung; C78.01 Secondary malignant neoplasm of right lung; C77.8 Secondary and unspecified malignant neoplasm of lymph nodes of multiple regions; Z79.899 Other long term (current) drug therapy; Z87.891 Personal history of nicotine dependence; Z51.12 Encounter for antineoplastic immunotherapy; K76.89 Other specified diseases of liver; K92.2 Gastrointestinal hemorrhage, unspecified; K59.00 Constipation, unspecified; I82.401 Acute embolism and thrombosis of unspecified deep veins of right lower extremity; Z79.01 Long term (current) use of anticoagulants; G93.9 Disorder of brain, unspecified; R20.0 Anesthesia of skin; F40.240 Claustrophobia; Z95.828 Presence of other vascular implants and grafts
CPT/HCPCS: 99024

== ENCOUNTER 2022-06-28 09:15 | Oncology outpatient (recurring) (ONCR) | payer OTHER, SELFPAY ==
[2022-06-14 10:37] VITALS: BMI 24.8
[2022-06-14 10:38] VITALS: BP 102/71; PULSE 74; RESP 16; TEMP 37.1; O2SAT 98
[2022-06-14 10:55] LABS: Basophils # 0.1 10^3/uL (0.0-0.1); Basophils % 0.7 %; Eosinophils # 0.2 10^3/uL (0.0-0.8); Eosinophils % 2.8 %; Hematocrit 43.8 % (42.0-52.0); Hemoglobin 14.4 g/dL (11.7-16.6); Lymphocytes # 0.8 10^3/uL (0.8-4.8); Lymphocytes % 8.8 %; Mean Corpuscular HGB Conc 32.9 g/dL (30.0-36.0); Mean Corpuscular Hemoglobin 32.7 pg (28.0-34.0); Mean Corpuscular Volume 99.5 fl (80-94); Mean Platelet Volume 9.2 fL (7.4-10.4); Monocytes # 0.8 10^3/uL (0.2-0.9); Monocytes % 9.1 %; Neutrophils # 6.78 10^3/uL (1.8-7.7); Neutrophils % 78.4 %; Nucleated Red Blood Cells % 0 %; Platelet Count 261 10^3/cmm (130-400); Red Cell Distribution Width 11.4 % (12.1-15.1); White Blood Count 8.7 10^3/uL (4.0-10.0)
[2022-06-14 11:03] LABS: Alanine Aminotransferase 8 U/L (0-41); Albumin Level 3.7 g/dL (3.5-5.2); Alkaline Phosphatase 90 U/L (40-130); Anion Gap 12.8 (5-19); Aspartate Amino Transferase 12 U/L (0-40); Blood Urea Nitrogen 11 mg/dL (6-20); Calcium 9.2 mg/dL (8.5-10.5); Carbon Dioxide 26 mmol/L (22-29); Chloride 98 mmol/L (98-107); Globulin 3.2 g/dL (1.3-4.6); Glomerular Filtration Rate 117.5 mL/min (90-130); Glucose 104 mg/dL (65-115); Osmolality Calculated 276 mOsm/kg (285-295); Potassium 3.8 mmol/L (3.5-5.1); Sodium 133 mmol/L (136-145); Thyroid Stimulating Hormone 1.81 uIU/mL (0.27-4.20); Total Bilirubin 0.2 mg/dL (0.15-1.2); Total Protein 6.9 g/dL (6.6-8.7)
[2022-06-14] MEDS: sodium chloride 0.9% 250 ML 75 ML IV (12:23)
[2022-06-14] MEDS: diphenhydrAMINE 50 mg/mL SDV 1mL 12.5 MG IVP (12:28)
--- NOTE | 2022-06-14 13:27 | ECG_ITS ---
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 Measurements Intervals [place] Rate: 87 P: 77 ME: 183 QRS: 97 QRSD: 98 T: 78 QT: 347 QTc: 420 Interpretive Statements SINUS RHYTHM BORDERLINE RIGHT AXIS DEVIATION [QRS AXIS > 90] MODERATE ST DEPRESSION [0.05+ mV ST DEPRESSION] Compared to ECG 02/23/2022 09:46:42 ST (T wave) deviation now present Sinus tachycardia no longer present Electronically Signed On 06-14-2022 17:17:46 CDT by Mor Trivedi M.D. [id number]
[2022-06-14 15:23] VITALS: BP 92/62; PULSE 86; RESP 16; TEMP 36.7; O2SAT 95
[2022-06-28 09:42] VITALS: BP 97/67; PULSE 85; RESP 16; TEMP 36.7; O2SAT 92
[2022-06-28 09:55] LABS: Basophils # 0.1 10^3/uL (0.0-0.1); Basophils % 0.8 %; Eosinophils # 0.3 10^3/uL (0.0-0.8); Eosinophils % 3.4 %; Hematocrit 43.9 % (42.0-52.0); Hemoglobin 14.1 g/dL (11.7-16.6); Lymphocytes # 0.6 10^3/uL (0.8-4.8); Lymphocytes % 8.4 %; Mean Corpuscular HGB Conc 32.1 g/dL (30.0-36.0); Mean Corpuscular Volume 99.8 fl (80-94); Mean Platelet Volume 9.3 fL (7.4-10.4); Monocytes # 0.8 10^3/uL (0.2-0.9); Monocytes % 10.3 %; Neutrophils # 5.56 10^3/uL (1.8-7.7); Neutrophils % 76.8 %; Nucleated Red Blood Cells % 0 %; Platelet Count 273 10^3/cmm (130-400); Red Cell Distribution Width 11.6 % (12.1-15.1); White Blood Count 7.3 10^3/uL (4.0-10.0)
[2022-06-28 10:23] LABS: Alanine Aminotransferase 7 U/L (0-41); Albumin Level 3.7 g/dL (3.5-5.2); Alkaline Phosphatase 86 U/L (40-130); Anion Gap 16.1 (5-19); Aspartate Amino Transferase 12 U/L (0-40); Blood Urea Nitrogen 11 mg/dL (6-20); Calcium 8.8 mg/dL (8.5-10.5); Carbon Dioxide 26 mmol/L (22-29); Chloride 102 mmol/L (98-107); Globulin 3.2 g/dL (1.3-4.6); Glomerular Filtration Rate 117.5 mL/min (90-130); Glucose 107 mg/dL (65-115); Osmolality Calculated 290 mOsm/kg (285-295); Potassium 4.1 mmol/L (3.5-5.1); Sodium 140 mmol/L (136-145); Thyroid Stimulating Hormone 1.67 uIU/mL (0.27-4.20); Total Bilirubin 0.2 mg/dL (0.15-1.2); Total Protein 6.9 g/dL (6.6-8.7)
[2022-06-28] MEDS: sodium chloride 0.9% 250 ML 75 ML IV (11:46)
[2022-06-28] MEDS: pantoprazole 40 mg SDV IVP (11:51)
[2022-06-28] MEDS: lidocaine 2% viscous 15 ML, aluminum-mag hydrox-simethicon 30 ML, sucralfate oral liq 1 GM PO (12:09)
[2022-06-28 14:00] VITALS: BP 117/67; PULSE 98; RESP 16; TEMP 36.6; O2SAT 95
== END 2022-06-28 23:59 | disposition home or self-care (01) ==
PROVIDERS: Nurse Practitioner; Nurse Practitioner Family; PCP Nurse Practitioner; Visit Provider Radiology Radiation Oncology
DX: Z51.12 Encounter for antineoplastic immunotherapy; Z51.0 Encounter for antineoplastic radiation therapy; C34.82 Malignant neoplasm of overlapping sites of left bronchus and lung; C78.01 Secondary malignant neoplasm of right lung; C77.8 Secondary and unspecified malignant neoplasm of lymph nodes of multiple regions; R10.12 Left upper quadrant pain; Z79.899 Other long term (current) drug therapy; Z87.891 Personal history of nicotine dependence
CPT/HCPCS: 80053; 84443; 85025; 93005; 96375; 96413; 99214; C9113; J1200; J1642; J7050; J9173

== ENCOUNTER 2022-06-29 11:42 | Emergency (ER) | payer OTHER, SELFPAY ==
--- NOTE | 2022-06-29 11:49 | ECG_ITS ---
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 Measurements Intervals [place] Rate: 96 P: 80 IA: 166 QRS: 96 QRSD: 85 T: 64 QT: 329 QTc: 417 Interpretive Statements SINUS RHYTHM POSSIBLE LEFT ATRIAL ENLARGEMENT [-0.1mV P-WAVE IN V1/V2] BORDERLINE RIGHT AXIS DEVIATION [QRS AXIS > 90] MINIMAL ST DEPRESSION [0.025+ mV ST DEPRESSION] INTERPRETATION BASED ON A DEFAULT AGE OF 40 YEARS Compared to ECG 06/14/2022 13:27:01 No significant changes Electronically Signed On 06-30-2022 1:15:55 CDT by Melany Gonsalves M.D. [id number]
[2022-06-29 11:50] VITALS: BP 123/90; PULSE 99; RESP 16; TEMP 36.5; O2SAT 97
--- NOTE | 2022-06-29 11:54 | XRR_ITS ---
PROCEDURE INFORMATION: Exam: XR Chest Exam date and time: 06/29/2022 12:13 PM Age: 56 years old Clinical indication: Pain; Angina pectoris; Prior surgery; Surgery date: 6+ months; Surgery type: Port; Patient HX: HX of lung cancer; Additional info: Chest pain TECHNIQUE: Imaging protocol: Radiologic exam of the chest. Views: 1 view. COMPARISON: CR XR chest 2V* [id number] 02/12/2022 11:34 AM FINDINGS: Tubes, catheters and devices: A left central line extends into the SVC Lungs: Parenchymal density is seen in the left upper lobe stable since prior examination. Multiple nodular densities seen in both lungs. These nodular densities have increased in size since prior examination in the right upper lobe and left lower lobe. There was a larger density in the right lower lobe which is no longer visible. Several small nodules are seen in the right lung. The findings noted are likely hematogenous metastatic lesions. Pleural spaces: Unremarkable. No pleural effusion. No pneumothorax. Heart/Mediastinum: Unremarkable. No cardiomegaly. Bones/joints: Unremarkable. XR/XR chest 1V portable [id number] IMPRESSION: 1. Parenchyma density left upper lobe stable since prior possible pneumonia 2. Multiple nodular densities are present in both lungs likely metastatic lesions 3. Left central line extends into the SVC
--- NOTE | 2022-06-29 12:16 | ED_ITS ---
Documented by User: YONY Pantoja 06/29/22 15:46 HPI - Chest Pain General: Chief Complaint: Chest Pain Stated Complaint: chest Pains Time Seen by Provider: 06/29/22 11:48 Source: patient and family Mode of arrival: ambulatory Limitations: no limitations History of Present Illness: Patient is a 56-year-old male who presents to ED today at the request of the [place] [facility] for evaluations of chest pain that patient has had over the past 2 weeks. He states pains are intermittent, brief, and sharp in nature. He denies any known aggravating or alleviating factors to his discomfort. He states it is not affected by eating, position, or exertion. He has no known history of coronary artery disease. Patient has known lung malignancy he has underwent chemo and radiation for. He is currently taking immune therapy now. He has not noticed any lower extremity swelling. No PND or orthopnea. He states his heart rate has also been bouncing around anywhere from 90 to 140 bpm. He states an increase in his heart rate is not associated with his chest pains. He states he has no feelings of palpitations or racing heart. MD complaint: chest pain Onset (ago): week(s) Timing of current episode: episodic Onset: during rest Pain location: substernal Pain radiation: back Severity: moderate Quality: sharp Relieving factors: nothing Exacerbating factors: nothing Associated symptoms: Reports dyspnea (chronic-states at baseline); Deny abdominal pain, fever(s), nausea, palpitations, syncope or vomiting Treatment prior to arrival: none Risk Factors: Pulmonary embolism risk factors: history of deep vein thrombosis and malignancy Review of Systems Const: Denies: fever(s), chills, body aches, fatigue or malaise Eyes: Denies: change in vision, blurry vision, photophobia, floaters or seeing flashes Card: Reports: chest pain, dyspnea on exertion (chronic) and other (intermittent racing heart rate); Denies: palpitations, irregular heart rhythm, edema, swelling of feet/ankles, lightheadedness, syncope, pre-syncope, orthopnea, leg pain with exertion or acrocyanosis Resp: Reports: dyspnea (chronic-states at baseline); Denies: productive cough, non-productive cough, wheezing, pain on inspiration, hemoptysis or chest congestion GI: Denies: abdominal pain, nausea, vomiting, heartburn or diarrhea : Denies: difficulty urinating or dysuria Musc: Denies: neck pain, back pain, extremity pain, extremity swelling, joint pain, joint swelling, joint redness or joint warmth Skin/Breast: Denies: rash Neuro: Denies: headache(s), numbness in extremities, weakness in extremities or sensory changes PFSH ED PFSH: Medical History Cancer of left lung Lung cancer Port-A-Cath in place Surgical History History of back surgery x3 History of esophagogastroduodenoscopy (EGD) 2010 History of lumbar surgery x3 History of testicular surgery double testicular torsion with hernia repair Hx of colonoscopy with polypectomy 2009 Family History Grandfather Cancer Grandmother Dementia Father Hypertension Other Anesthesia complication Diabetes Hyperlipidemia Denies family history of CAD (coronary artery disease) Clotting disorder Psychiatric illness Chronic kidney disease (CKD) Suicide Bleeding disorder Lung disease Stroke Social History Smoking and tobacco status: smoker, details unknown cigarettes Packs smoked per day: 1 Years cigarettes smoked: 30 Alcohol intake: current Alcohol intake frequency: holidays/special occasions only Physical Exam Const: COMMON NORMALS: no acute distress, average body habitus, patient oriented x3, no limitations, healthy appearing, alert and well nourished ORIENTATION/CONSCIOUSNESS: Yes awake, Yes oriented to person, Yes oriented to place and Yes oriented to time HENMT: COMMON NORMALS: normocephalic and atraumatic HEAD & SCALP: normal to inspection, normocephalic and atraumatic Neck/C-Spine: COMMON NORMALS: full ROM, no lymphadenopathy, supple and no meningeal signs Chest: COMMONS NORMALS: normal inspection of the chest and normal palpation of entire chest wall Resp: COMMON NORMALS: normal respiratory effort and clear to auscultation bilaterally AUSCULTATION: clear to auscultation bilaterally Cardio: COMMON NORMALS: regular rate and regular rhythm RATE: regular rate RHYTHM: regular rhythm GI: COMMON NORMALS: Normal to inspection, nondistended, normoactive bowel sounds present, Soft to palpation, non-tender, No hepatosplenomegaly present and no masses PALPATION: Yes Soft to palpation and Yes No hepatosplenomegaly present : COMMON NORMALS: Yes no CVA tenderness BLADDER/KIDNEY EXAM: Yes no CVA tenderness Back/Pelvis: COMMON NORMALS: no CVA tenderness, thoracic and lumbar spine normal to inspection, no thoracic nor lumbar tenderness and thoraco-lumbar ROM normal THORACIC SPINE/UPPER BACK: Yes other soft tissue findings (TTP along L medial edge scapula) Extremity: COMMON NORMALS: normal to inspection, capillary refill normal, no joint enlargement, no clubbing, cyanosis or edema, no calf tenderness and no pedal edema GENERAL: Yes normal exam except as noted Neuro: LAINEY COMA SCALE: document GCS findings [place] coma scale eye opening: Spontaneous [place] coma scale verbal response: Orientated [place] coma scale motor response: Obey commands [place] coma scale total score: 15 COMMON NORMALS: patient oriented x3, moves all extremities, no focal motor deficits and no sensory deficits noted SENSORIUM/ORIENTATION: Yes alert, Yes oriented to person, Yes oriented to place and Yes oriented to time MENINGEAL SIGNS: Yes no meningeal signs Skin: COMMON NORMALS: no rashes or lesions noted GENERAL SKIN EXAM: no rashes or lesions noted Course Vital Signs: Vital signs: Vital Signs Temperature 97.7 F 06/29/22 11:50 Pulse Rate 91 06/29/22 15:57 Respiratory Rate 16 06/29/22 11:50 Blood Pressure 113/83 06/29/22 15:57 Pulse Oximetry 96 06/29/22 15:57 Oxygen Delivery Me thod Room Air 06/29/22 13:45 MDM - Chest Pain Medical Decision Making Patient's vital signs are stable. He has not had any episodes of tachycardia while here. His blood work including baseline and 2-hour troponins are nonactionable. EKG showing no ischemic changes. He did have an elevated D- dimer at 1.78 thus CTA imaging was performed. Unfortunately patient was found to have innumerable bilateral pulmonary nodules compatible with metastatic disease. Findings seemed new compared to his PET scan that he had performed in March of this year. He does have a mild to moderate left pleural effusion. Patient is not requiring any form of oxygen. CT findings discussed with Dr. Posada. Patient and his states they will go over to the oncology center to schedule a follow-up appointment. Return ED precautions given. Lab Data 06/29/22 12:24 06/29/22 12:24 Radiology Impressions Chest X-Ray 06/29/22 11:54 IMPRESSION: 1. Parenchyma density left upper lobe stable since prior possible pneumonia 2. Multiple nodular densities are present in both lungs likely metastatic lesions 3. Left central line extends into the SVC Chest CTA 06/29/22 13:25 IMPRESSION: 1. No evidence of pulmonary embolus. 2. Innumerable bilateral pulmonary nodules compatible with metastatic disease. This is new compared to the prior studies. Only a few pulmonary nodules on the prior PET/CT 03/20/22 3. Small to moderate LEFT pleural effusion with compressive atelectasis LEFT lower lobe. 4. LEFT upper lobe neoplasm extending to the LEFT hilum is similar in appearance to the recent PET/CT. Interstitial thickening in the LEFT upper lobe nonspecific can be seen with lymphangitic metastasis. 5. Small to moderate LEFT pleural effusion with compressive atelectasis LEFT lower lobe. Notified Dr. Posada at 06/29/2022 3:04 PM. Laboratory Results WBC 7.0 10^3/uL (4.0-10.0) 06/29/22 12:24 RBC 4.31 10^6/uL (4.1-5.3) 06/29/22 12:24 Hgb 14.5 g/dL (11.7-16.6) 06/29/22 12:24 Hct 42.8 % (42.0-52.0) 06/29/22 12:24 MCV 99.3 fl (80-94) H 06/29/22 12:24 MCH 33.6 pg (28.0-34.0) 06/29/22 12:24 MCHC 33.9 g/dL (30.0-36.0) D 06/29/22 12:24 RDW 11.4 % (12.1-15.1) L 06/29/22 12:24 Plt Count 265 10^3/cmm (130-400) 06/29/22 12:24 MPV 9.5 fL (7.4-10.4) 06/29/22 12:24 Neut % (Auto) 76.4 % 06/29/22 12:24 Lymph % (Auto) 11.0 % 06/29/22 12:24 [place] % (Auto) 8.0 % 06/29/22 12:24 Eos % (Auto) 3.1 % 06/29/22 12:24 Baso % (Auto) 0.9 % 06/29/22 12:24 Neut # (Auto) 5.36 10^3/uL (1.8-7.7) 06/29/22 12:24 Lymph # (Auto) 0.8 10^3/uL (0.8-4.8) 06/29/22 12:24 [place] # (Auto) 0.6 10^3/uL (0.2-0.9) 06/29/22 12:24 Eos # (Auto) 0.2 10^3/uL (0.0-0.8) 06/29/22 12:24 Baso # (Auto) 0.1 10^3/uL (0.0-0.1) 06/29/22 12:24 Nucleated RBC % (auto) 0 % 06/29/22 12:24 Nucleated RBCs # 0.0 /100WBC 06/29/22 12:24 D-Dimer 1.78 ug/mIFEU (0-0.59) H 06/29/22 12:24 Sodium 136 mmol/L (136-145) 06/29/22 12:24 Potassium 3.8 mmol/L (3.5-5.1) 06/29/22 12:24 Chloride 100 mmol/L (98-107) 06/29/22 12:24 Carbon Dioxide 23 mmol/L (22-29) 06/29/22 12:24 Anion Gap 16.8 (5-19) 06/29/22 12:24 BUN 8 mg/dL (6-20) 06/29/22 12:24 Creatinine 0.6 mg/dL (0.7-1.2) L 06/29/22 12:24 GFR Calculation 140.4 mL/min (90-130) H 06/29/22 12:24 Glucose 99 mg/dL (65-115) 06/29/22 12:24 Calculated Osmolality 280 mOsm/kg (285-295) L 06/29/22 12:24 Calcium 9.3 mg/dL (8.5-10.5) 06/29/22 12:24 Total Bilirubin 0.2 mg/dL (0.15-1.2) 06/29/22 12:24 AST 12 U/L (0-40) 06/29/22 12:24 ALT 8 U/L (0-41) 06/29/22 12:24 Alkaline Phosphatase 78 U/L (40-130) 06/29/22 12:24 Troponin T Baseline 6 ng/L (0-15) 06/29/22 12:24 Troponin T 120 Minute 6.00 ng/L (0-15) 06/29/22 14:04 Delta Troponin T 0 ABS# (0-10) 06/29/22 14:04 Total Protein 6.8 g/dL (6.6-8.7) 06/29/22 12:24 Albumin 3.5 g/dL (3.5-5.2) 06/29/22 12:24 Globulin 3.3 g/dL (1.3-4.6) 06/29/22 12:24 Discharge Plan Discharge Patient Disposition: Home Clinical Impression: Metastatic cancer to lung Qualifiers: Laterality: bilateral Qualified Code(s): C78.01 - Secondary malignant neoplasm of right lung Chest pain Qualifiers: Chest pain type: unspecified Qualified Code(s): R07.9 - Chest pain, unspecified Condition: Stable Prescriptions: No Action alprazolam 0.5 mg tablet 0.5 mg PO .Q6-8H PRN (Reason: anxiety) Qty: 40 0RF polyethylene glycol 3350 [Miralax] 17 gram/dose powder 17 g PO DAILY PRN (Reason: Constipation) oxycodone 5 mg/5 mL solution 5 mg PO Q4H PRN (Reason: pain) 14 Days Qty: 5 0RF Tylenol Ex Str Rapid Release 500 mg Tablet 1,000 mg PO Q6H PRN (Reason: Pain) Magic Mouth Wash 5 ml PO TID PRN (Reason: pain when eating) albuterol sulfate 2.5 mg /3 mL (0.083 %) Solution For Nebulization 2.5 mg INHALATION QID PRN (Reason: Shortness Of Breath) Discharge Orders: Discharge ED (Routine); Ordered 06/29/22 Ordered By: Ritu Weiss Referrals: Ana Luisa Agarwal COOKING TEACHER [Primary Care Provider] - Activity Restrictions/Additional Instructions: As we discussed unfortunately your CT imaging here showing many new metastatic lung nodules when compared to previous imaging. As we discussed I would like you to follow-up with your oncology team for further evaluation and treatment. Coding Level of Care Code ED Traffic Or System Dispatcher for Chg Fwd Documented by User: Elfego Posada DO 06/30/22 07:21 HPI - Chest Pain General: Chief Complaint: Chest Pain Stated Complaint: chest Pains Time Seen by Provider: 06/29/22 11:48 PFSH ED PFSH: Medical History Cancer of left lung Lung cancer Port-A-Cath in place Surgical History History of back surgery x3 History of esophagogastroduodenoscopy (EGD) 2010 History of lumbar surgery x3 History of testicular surgery double testicular torsion with hernia repair Hx of colonoscopy with polypectomy 2010 Family History Grandfather Cancer Grandmother Dementia Father Hypertension Other Anesthesia complication Diabetes Hyperlipidemia Denies family history of CAD (coronary artery disease) Clotting disorder Psychiatric illness Chronic kidney disease (CKD) Suicide Bleeding disorder Lung disease Stroke Social History Smoking and tobacco status: smoker, details unknown cigarettes Packs smoked per day: 1 Years cigarettes smoked: 30 Alcohol intake: current Alcohol intake frequency: holidays/special occasions only Physical Exam Neuro: LAINEY COMA SCALE: document GCS findings [place] coma scale total score: 15 Course Vital Signs: Vital signs: Vital Signs Temperature 97.7 F 06/29/22 11:50 Pulse Rate 91 06/29/22 15:57 Respiratory Rate 16 06/29/22 11:50 Blood Pressure 113/83 06/29/22 15:57 Pulse Oximetry 96 06/29/22 15:57 Oxygen Delivery Me thod Room Air 06/29/22 13:45 MDM - Chest Pain Medical Decision Making Patient's vital signs are stable. He has not had any episodes of tachycardia while here. His blood work including baseline and 2-hour troponins are nonactionable. EKG showing no ischemic changes. He did have an elevated D- dimer at 1.78 thus CTA imaging was performed. Unfortunately patient was found to have innumerable bilateral pulmonary nodules compatible with metastatic disease. Findings seemed new compared to his PET scan that he had performed in March of this year. He does have a mild to moderate left pleural effusion. Patient is not requiring any form of oxygen. CT findings discussed with Dr. Posada. Patient and his states they will go over to the oncology center to schedule a follow-up appointment. Return ED precautions given. Chart reviewed and patient discussed with midlevel. Agree with assessment and plan. Lab Data 06/29/22 12:24 06/29/22 12:24 Radiology Impressions Chest X-Ray 06/29/22 11:54 IMPRESSION: 1. Parenchyma density left upper lobe stable since prior possible pneumonia 2. Multiple nodular densities are present in both lungs likely metastatic lesions 3. Left central line extends into the SVC Chest CTA 06/29/22 13:25 IMPRESSION: 1. No evidence of pulmonary embolus. 2. Innumerable bilateral pulmonary nodules compatible with metastatic disease. This is new compared to the prior studies. Only a few pulmonary nodules on the prior PET/CT 03/20/22 3. Small to moderate LEFT pleural effusion with compressive atelectasis LEFT lower lobe. 4. LEFT upper lobe neoplasm extending to the LEFT hilum is similar in appearance to the recent PET/CT. Interstitial thickening in the LEFT upper lobe nonspecific can be seen with lymphangitic metastasis. 5. Small to moderate LEFT pleural effusion with compressive atelectasis LEFT lower lobe. Notified Dr. Posada at 06/29/2022 3:04 PM. Laboratory Results WBC 7.0 10^3/uL (4.0-10.0) 06/29/22 12:24 RBC 4.31 10^6/uL (4.1-5.3) 06/29/22 12:24 Hgb 14.5 g/dL (11.7-16.6) 06/29/22 12:24 Hct 42.8 % (42.0-52.0) 06/29/22 12:24 MCV 99.3 fl (80-94) H 06/29/22 12:24 MCH 33.6 pg (28.0-34.0) 06/29/22 12:24 MCHC 33.9 g/dL (30.0-36.0) D 06/29/22 12:24 RDW 11.4 % (12.1-15.1) L 06/29/22 12:24 Plt Count 265 10^3/cmm (130-400) 06/29/22 12:24 MPV 9.5 fL (7.4-10.4) 06/29/22 12:24 Neut % (Auto) 76.4 % 06/29/22 12:24 Lymph % (Auto) 11.0 % 06/29/22 12:24 [place] % (Auto) 8.0 % 06/29/22 12:24 Eos % (Auto) 3.1 % 06/29/22 12:24 Baso % (Auto) 0.9 % 06/29/22 12:24 Neut # (Auto) 5.36 10^3/uL (1.8-7.7) 06/29/22 12:24 Lymph # (Auto) 0.8 10^3/uL (0.8-4.8) 06/29/22 12:24 [place] # (Auto) 0.6 10^3/uL (0.2-0.9) 06/29/22 12:24 Eos # (Auto) 0.2 10^3/uL (0.0-0.8) 06/29/22 12:24 Baso # (Auto) 0.1 10^3/uL (0.0-0.1) 06/29/22 12:24 Nucleated RBC % (auto) 0 % 06/29/22 12:24 Nucleated RBCs # 0.0 /100WBC 06/29/22 12:24 D-Dimer 1.78 ug/mIFEU (0-0.59) H 06/29/22 12:24 Sodium 136 mmol/L (136-145) 06/29/22 12:24 Potassium 3.8 mmol/L (3.5-5.1) 06/29/22 12:24 Chloride 100 mmol/L (98-107) 06/29/22 12:24 Carbon Dioxide 23 mmol/L (22-29) 06/29/22 12:24 Anion Gap 16.8 (5-19) 06/29/22 12:24 BUN 8 mg/dL (6-20) 06/29/22 12:24 Creatinine 0.6 mg/dL (0.7-1.2) L 06/29/22 12:24 GFR Calculation 140.4 mL/min (90-130) H 06/29/22 12:24 Glucose 99 mg/dL (65-115) 06/29/22 12:24 Calculated Osmolality 280 mOsm/kg (285-295) L 06/29/22 12:24 Calcium 9.3 mg/dL (8.5-10.5) 06/29/22 12:24 Total Bilirubin 0.2 mg/dL (0.15-1.2) 06/29/22 12:24 AST 12 U/L (0-40) 06/29/22 12:24 ALT 8 U/L (0-41) 06/29/22 12:24 Alkaline Phosphatase 78 U/L (40-130) 06/29/22 12:24 Troponin T Baseline 6 ng/L (0-15) 06/29/22 12:24 Troponin T 120 Minute 6.00 ng/L (0-15) 06/29/22 14:04 Delta Troponin T 0 ABS# (0-10) 06/29/22 14:04 Total Protein 6.8 g/dL (6.6-8.7) 06/29/22 12:24 Albumin 3.5 g/dL (3.5-5.2) 06/29/22 12:24 Globulin 3.3 g/dL (1.3-4.6) 06/29/22 12:24 Discharge Plan Discharge Patient Disposition: Home Clinical Impression: Metastatic cancer to lung Qualifiers: Laterality: bilateral Qualified Code(s): C78.01 - Secondary malignant neoplasm of right lung Chest pain Qualifiers: Chest pain type: unspecified Qualified Code(s): R07.9 - Chest pain, unspecified Condition: Stable Prescriptions: No Action alprazolam 0.5 mg tablet 0.5 mg PO .Q6-8H PRN (Reason: anxiety) Qty: 40 0RF polyethylene glycol 3350 [Miralax] 17 gram/dose powder 17 g PO DAILY PRN (Reason: Constipation) oxycodone 5 mg/5 mL solution 5 mg PO Q4H PRN (Reason: pain) 14 Days Qty: 5 0RF Tylenol Ex Str Rapid Release 500 mg Tablet 1,000 mg PO Q6H PRN (Reason: Pain) Magic Mouth Wash 5 ml PO TID PRN (Reason: pain when eating) albuterol sulfate 2.5 mg /3 mL (0.083 %) Solution For Nebulization 2.5 mg INHALATION QID PRN (Reason: Shortness Of Breath) Discharge Orders: Discharge ED (Routine); Ordered 06/29/22 Ordered By: Ritu Weiss Referrals: Ana Luisa Agarwal FNP [Primary Care Provider] - Activity Restrictions/Additional Instructions: As we discussed unfortunately your CT imaging here showing many new metastatic lung nodules when compared to previous imaging. As we discussed I would like you to follow-up with your oncology team for further evaluation and treatment. Coding Level of Care Code ED Traffic Or System Dispatcher for Edu Mg
[2022-06-29 12:36] LABS: Basophils # 0.1 10^3/uL (0.0-0.1); Basophils % 0.9 %; Eosinophils # 0.2 10^3/uL (0.0-0.8); Eosinophils % 3.1 %; Hematocrit 42.8 % (42.0-52.0); Hemoglobin 14.5 g/dL (11.7-16.6); Lymphocytes # 0.8 10^3/uL (0.8-4.8); Mean Corpuscular HGB Conc 33.9 g/dL (30.0-36.0); Mean Corpuscular Hemoglobin 33.6 pg (28.0-34.0); Mean Corpuscular Volume 99.3 fl (80-94); Mean Platelet Volume 9.5 fL (7.4-10.4); Monocytes # 0.6 10^3/uL (0.2-0.9); Neutrophils # 5.36 10^3/uL (1.8-7.7); Neutrophils % 76.4 %; Nucleated Red Blood Cells % 0 %; Platelet Count 265 10^3/cmm (130-400); Red Blood Count 4.31 10^6/uL (4.1-5.3); Red Cell Distribution Width 11.4 % (12.1-15.1)
[2022-06-29 12:38] VITALS: BP 123/87; O2SAT 96
--- NOTE | 2022-06-29 12:41 | PC.PHAR ---
pts verified pts medications-states the pt only takes prn medications that are entered-states the pts eliquis 5mg bid and aspirin 81mg daily was dced on 05/05/22-states the pt finished the 7 days of fluconazole 100mg filled on 06/14/22 -
[2022-06-29 12:53] LABS: Alanine Aminotransferase 8 U/L (0-41); Albumin Level 3.5 g/dL (3.5-5.2); Alkaline Phosphatase 78 U/L (40-130); Anion Gap 16.8 (5-19); Aspartate Amino Transferase 12 U/L (0-40); Blood Urea Nitrogen 8 mg/dL (6-20); Calcium 9.3 mg/dL (8.5-10.5); Carbon Dioxide 23 mmol/L (22-29); Chloride 100 mmol/L (98-107); Globulin 3.3 g/dL (1.3-4.6); Glomerular Filtration Rate 140.4 mL/min (90-130); Glucose 99 mg/dL (65-115); Osmolality Calculated 280 mOsm/kg (285-295); Potassium 3.8 mmol/L (3.5-5.1); Sodium 136 mmol/L (136-145); Total Bilirubin 0.2 mg/dL (0.15-1.2); Total Protein 6.8 g/dL (6.6-8.7); Troponin(5th) Baseline 6 ng/L (0-15)
[2022-06-29 12:55] LABS: Creatinine Clr Calc Pharmacy 149.6806
[2022-06-29 13:11] LABS: D Dimer 1.78 ug/mIFEU (0-0.59)
--- NOTE | 2022-06-29 13:25 | CT_ITS ---
WS: [id number] CTA OF THE CHEST WITH PULMONARY EMBOLISM PROTOCOL TECHNIQUE: High-resolution contrast enhanced CTA of the chest with coronal and sagittal reformatted i prakashs with pulmonary embolism protocol. MIP images are also reviewed. CLINICAL INFORMATION: chest pain, elevated d dimer COMPARISON: None. DLP: 304.[address] scans at [facility] use at least one of these dose optimization techniques: automated e xposure control; mA and/or kV adjustment per patient size (includes targeted exams where dose is matc hed to clinical indication); or iterative reconstruction. FINDINGS: Proximal main pulmonary arteries are normal. No filling defects. Normal segmental and subsegmental pu lmonary arteries. No evidence of pulmonary embolus. Normal caliber thoracic aorta. Small pericardial effusion pericardial thickening.. Small to moderate LEFT pleural effusion with compressive atelectasi s LEFT lower lobe. Innumerable bilateral pulmonary nodules largest measuring up to 15 mm. Findings compatible with metas tatic disease. This is significantly progressed since March 20, 2022. A few enlarged mediastinal a nd peribronchial lymph nodes. LEFT upper lobe neoplasm extending to the LEFT hilum is similar in appearance to the recent PET/CT. T his measures approximately 5.5 x 2.7 CM with involvement of the LEFT upper lobe bronchi. Interstitial thickening in the LEFT upper lobe nonspecific can be seen with lymphangitic metastasis. Splenic granulomas. Small esophageal hiatal hernia. Mild thoracic kyphosis. CT/CT angio chest PE protcl [id number] IMPRESSION: 1. No evidence of pulmonary embolus. 2. Innumerable bilateral pulmonary nodules compatible with metastatic disease. This is new compared to the prior studies. Only a few pulmonary nodules on the prior PET/CT 03/20/22 3. Small to moderate LEFT pleural effusion with compressive atelectasis LEFT l ower lobe. 4. LEFT upper lobe neoplasm extending to the LEFT hilum is similar in appearan ce to the recent PET/CT. Interstitial thickening in the LEFT upper lobe nonspec ific can be seen with lymphangitic metastasis. 5. Small to moderate LEFT pleural effusion with compressive atelectasis LEFT l ower lobe. Notified Dr. Posada at 06/29/2022 3:04 PM.
[2022-06-29 13:45] VITALS: BP 125/81; PULSE 91; O2SAT 93
--- NOTE | 2022-06-29 13:54 | ECG_ITS ---
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 Measurements Intervals [place] Rate: 85 P: 19 VT: 168 QRS: 86 QRSD: 96 T: 56 QT: 339 QTc: 405 Interpretive Statements SINUS RHYTHM MODERATE ST DEPRESSION [0.05+ mV ST DEPRESSION] Compared to ECG 06/29/2022 11:49:45 No significant changes Electronically Signed On 06-30-2022 22:33:04 CDT by Melany Gonsalves M.D. [email or web address]
[2022-06-29 14:00] VITALS: BP 117/80; PULSE 82; O2SAT 92
[2022-06-29] MEDS: diphenhydrAMINE 50 mg/mL SDV 1mL IVP (14:03)
[2022-06-29] MEDS: ondansetron 2 mg/ML SDV 2 mL 4 MG IVP (14:03)
[2022-06-29] MEDS: iohexol 350 mg/mL 500 mL Btl (per mL) IV (14:35)
[2022-06-29 14:45] VITALS: BP 114/79; PULSE 92; O2SAT 93
[2022-06-29 15:07] LABS: Troponin 5 2HR Delta 0 ABS# (0-10)
[2022-06-29 15:57] VITALS: BP 113/83; PULSE 91; O2SAT 96
== END 2022-06-29 15:58 | disposition home or self-care (01) ==
PROVIDERS: Emergency Provider Physician Assistant; PCP Nurse Practitioner
DX: R07.9 Chest pain, unspecified (principal); C78.01 Secondary malignant neoplasm of right lung; F17.210 Nicotine dependence, cigarettes, uncomplicated
CPT/HCPCS: 36415; 71045; 71275; 80053; 84484; 85025; 85378; 93005; 96374; 96375; 99285; J1200; J2405; Q9967

== ENCOUNTER → 2022-07-14 13:13 | Outpatient (BNVA) | payer OTHER, SELFPAY | PROVIDERS: PCP Nurse Practitioner; Visit Provider Internal Medicine Hematology & Oncology | DX: C34.12 Malignant neoplasm of upper lobe, left bronchus or lung (principal); C78.01 Secondary malignant neoplasm of right lung; C77.8 Secondary and unspecified malignant neoplasm of lymph nodes of multiple regions; M89.9 Disorder of bone, unspecified; Z79.899 Other long term (current) drug therapy; Z95.828 Presence of other vascular implants and grafts | CPT/HCPCS: 99214 ==

== ENCOUNTER 2022-07-16 08:08 | Outpatient (CLI) | payer OTHER, SELFPAY ==
--- NOTE | 2022-07-16 08:30 | FL_ITS ---
WS: [id number] Barium swallow and esophagram, 07/16/2022 Clinical Data: Trouble swallowing in the last 3-4 months. Comparison: None. Fluoroscopy time: 1min [id number] # of spot films: 20 Findings: The patient swallowed the thick and thin barium, and it flowed through the hypopharynx without hesita tion. No stricture, mass, polyp or erosion was seen. The barium entered the esophagus and there was normal motility throughout. No hiatal hernia, reflux, stricture, polyp, mass, erosion or ulcer was noted. The left infusion catheter entered the left inter nal jugular vein and ended in the superior vena cava FL/FL barium swallow [id number] Impression: Normal esophagram.
== END 2022-07-16 08:09 | disposition home or self-care (01) ==
PROVIDERS: PCP Nurse Practitioner; Visit Provider Internal Medicine Hematology & Oncology
DX: C34.92 Malignant neoplasm of unspecified part of left bronchus or lung (principal); R13.10 Dysphagia, unspecified; R10.9 Unspecified abdominal pain
CPT/HCPCS: 74220

== ENCOUNTER 2022-07-27 08:51 | Oncology outpatient (recurring) (ONCR) | payer OTHER, SELFPAY ==
[2022-07-14 13:35] VITALS: BP 106/74; PULSE 111; RESP 18; TEMP 37.2; O2SAT 95
[2022-07-14 13:52] LABS: Basophils # 0.1 10^3/uL (0.0-0.1); Basophils % 0.8 %; Eosinophils # 0.3 10^3/uL (0.0-0.8); Eosinophils % 3.5 %; Hematocrit 42.6 % (42.0-52.0); Hemoglobin 14.4 g/dL (11.7-16.6); Lymphocytes # 0.8 10^3/uL (0.8-4.8); Lymphocytes % 10.9 %; Mean Corpuscular HGB Conc 33.8 g/dL (30.0-36.0); Mean Corpuscular Volume 97.5 fl (80-94); Mean Platelet Volume 9.4 fL (7.4-10.4); Monocytes # 0.6 10^3/uL (0.2-0.9); Monocytes % 8.6 %; Neutrophils # 5.44 10^3/uL (1.8-7.7); Neutrophils % 75.8 %; Nucleated Red Blood Cells % 0 %; Platelet Count 295 10^3/cmm (130-400); Red Blood Count 4.37 10^6/uL (4.1-5.3); Red Cell Distribution Width 11.7 % (12.1-15.1); White Blood Count 7.2 10^3/uL (4.0-10.0)
[2022-07-14 14:40] LABS: Alanine Aminotransferase 8 U/L (0-41); Albumin Level 3.7 g/dL (3.5-5.2); Alkaline Phosphatase 92 U/L (40-130); Anion Gap 16.6 (5-19); Aspartate Amino Transferase 14 U/L (0-40); Blood Urea Nitrogen 11 mg/dL (6-20); Calcium 8.9 mg/dL (8.5-10.5); Carbon Dioxide 25 mmol/L (22-29); Chloride 102 mmol/L (98-107); Globulin 3.6 g/dL (1.3-4.6); Glomerular Filtration Rate 117.5 mL/min (90-130); Glucose 98 mg/dL (65-115); Osmolality Calculated 287 mOsm/kg (285-295); Potassium 4.6 mmol/L (3.5-5.1); Sodium 139 mmol/L (136-145); Thyroid Stimulating Hormone 1.81 uIU/mL (0.27-4.20); Total Bilirubin 0.2 mg/dL (0.15-1.2); Total Protein 7.3 g/dL (6.6-8.7)
== END 2022-08-06 23:59 | disposition home or self-care (01) ==
PROVIDERS: Nurse Practitioner; PCP Nurse Practitioner; Visit Provider Radiology Radiation Oncology
DX: C34.12 Malignant neoplasm of upper lobe, left bronchus or lung; Z51.0 Encounter for antineoplastic radiation therapy; C78.01 Secondary malignant neoplasm of right lung; C77.8 Secondary and unspecified malignant neoplasm of lymph nodes of multiple regions; M89.9 Disorder of bone, unspecified; Z79.899 Other long term (current) drug therapy; Z95.828 Presence of other vascular implants and grafts
CPT/HCPCS: 80053; 84443; 85025; 99214; J1642

== ENCOUNTER 2022-08-06 10:32 | Outpatient (CLI) | payer OTHER, SELFPAY ==
[2022-08-04 09:26] VITALS: BMI 23.2
[2022-08-06] VITALS (17 sets, daily range): BP systolic 89–110; BP diastolic 63–88; PULSE 87–111; RESP 14–20; TEMP 36.6; O2SAT 92–98
--- NOTE | 2022-08-06 11:03 | CT_ITS ---
WS: [id number] LEFT ISCHIAL BIOPSY. CLINICAL INFORMATION: Left Ischium Biopsy COMPARISON: PET/CT July 09, 2022 DLP: 202.13 mGy.cm TECHNIQUE: The procedure including risk, benefits, and complications were discussed with the patient who agreed to proceed. Timeout was performed. Using sterile technique, the patient was prepped and dr aped in the usual sterile fashion. Patient was positioned prone and CT images were obtained through t he pelvis. Conscious sedation with fentanyl and Versed was utilized. The FDG avid lesion was selected in the LEFT inferior pubic ramus. After 1% lidocaine using fluorosco pic guidance, a 10-gauge osteocyte coaxial needle was advanced into the bone. Approximately 2 samples were obtained. Post procedure CT images demonstrate expected biopsy cavity. No immediate complicatio ns. CT/CT biopsy bone deep IMPRESSION: 1. Uncomplicated LEFT CT-guided inferior pubic ramus biopsy. 2. 2 biopsy cores were obtained. 3. Pathology is pending.
[2022-08-06] MEDS: sodium chloride 0.9% 1,000 ML 30 ML IV (11:35)
[2022-08-06] MEDS: fentaNYL 50 mcg/mL INJ 2mL 25 MCG IVP ×6 (12:20→12:49)
[2022-08-06] MEDS: midazolam 1 mg/mL INJ 2 mL IVP ×6 (12:20→12:49)
== END 2022-08-06 13:44 | disposition home or self-care (01) ==
PROVIDERS: PCP Nurse Practitioner; Visit Provider Internal Medicine Hematology & Oncology
DX: C79.51 Secondary malignant neoplasm of bone (principal); C77.9 Secondary and unspecified malignant neoplasm of lymph node, unspecified; C34.92 Malignant neoplasm of unspecified part of left bronchus or lung
CPT/HCPCS: 20225; 77012; 88307; 88311; 96374; 96375; J2250; J3010; J7030

== ENCOUNTER 2022-09-06 14:00 | Oncology outpatient (recurring) (ONCR) | payer OTHER, SELFPAY ==
[2022-08-31 10:00] VITALS: BP 91/68; PULSE 109; TEMP 37.1; O2SAT 93
[2022-08-31] MEDS: sodium chloride 0.9% 250 ML IV ×2 (10:00→11:05)
[2022-08-31 10:13] LABS: Basophils # 0.1 10^3/uL (0.0-0.1); Basophils % 0.8 %; Eosinophils # 0.3 10^3/uL (0.0-0.8); Eosinophils % 2.3 %; Hematocrit 39.8 % (42.0-52.0); Lymphocytes # 0.7 10^3/uL (0.8-4.8); Lymphocytes % 6.4 %; Mean Corpuscular HGB Conc 32.7 g/dL (30.0-36.0); Mean Platelet Volume 9.3 fL (7.4-10.4); Neutrophils # 8.79 10^3/uL (1.8-7.7); Neutrophils % 80.9 %; Nucleated Red Blood Cells % 0 %; Platelet Count 372 10^3/cmm (130-400); Red Blood Count 4.19 10^6/uL (4.1-5.3); Red Cell Distribution Width 12.1 % (12.1-15.1); White Blood Count 10.9 10^3/uL (4.0-10.0)
[2022-08-31 10:31] LABS: Alanine Aminotransferase 6 U/L (0-41); Albumin Level 3.6 g/dL (3.5-5.2); Alkaline Phosphatase 93 U/L (40-130); Anion Gap 14.2 (5-19); Aspartate Amino Transferase 13 U/L (0-40); Blood Urea Nitrogen 11 mg/dL (6-20); Calcium 9.4 mg/dL (8.5-10.5); Carbon Dioxide 27 mmol/L (22-29); Chloride 99 mmol/L (98-107); Globulin 3.6 g/dL (1.3-4.6); Glomerular Filtration Rate 117.5 mL/min (90-130); Glucose 100 mg/dL (65-115); Osmolality Calculated 281 mOsm/kg (285-295); Potassium 4.2 mmol/L (3.5-5.1); Sodium 136 mmol/L (136-145); Total Bilirubin 0.2 mg/dL (0.15-1.2); Total Protein 7.2 g/dL (6.6-8.7)
[2022-08-31 11:00] VITALS: BP 91/63; PULSE 105; TEMP 36.9; O2SAT 95
[2022-08-31 11:30] VITALS: BP 92/69
[2022-09-06 14:04] VITALS: BP 100/69; PULSE 120; RESP 18; TEMP 36.8; O2SAT 88
[2022-09-06] MEDS: cyanocobalamin 1,000 mcg/mL SDV 1000 MCG IM (14:06)
[2022-09-06 14:15] VITALS: PULSE 122; O2SAT 94
== END 2022-09-06 23:59 | disposition home or self-care (01) ==
PROVIDERS: PCP Nurse Practitioner; Visit Provider Internal Medicine Hematology & Oncology
DX: C34.92 Malignant neoplasm of unspecified part of left bronchus or lung (principal)
CPT/HCPCS: 80053; 85025; 96360; 99214; J1642; J3420; J7050

== ENCOUNTER 2022-09-13 10:06 | Outpatient (CLI) | payer OTHER, SELFPAY ==
--- NOTE | 2022-09-13 10:30 | CT_ITS ---
WS: [id number] CT CHEST ANGIOGRAPHY WITH REFORMATS HISTORY: shortness of breath TECHNIQUE: Contiguous axial images are obtained through the chest during arterial injection of intrav enous contrast. Images are reconstructed to evaluate the pulmonary arteries. MIP imaging also reviewe d. All CT scans at [facility] use at least one of these dose optimization techniques: automat ed exposure control; mA and/or kV adjustment per patient size (includes targeted exams where dose is matched to clinical indication); or iterative reconstruction. CONTRAST: Omnipaque 350; 100 mL IV. DLP: 354.14 mGy.cm COMPARISON: 06/29/2022 Adequate opacification of the central pulmonary arteries. No filling defects are identified. The LEFT pulmonary artery lobar enhancement is limited. There is partial encasement of the bronchovascular st ructures from known neoplastic LEFT lung disease. No central pulmonary embolism. There is no RIGHT heart strain. Normal size aorta. Moderate-sized layering LEFT pleural effusion has slightly increased. There is pleural thickening and nodularity from pleural metastatic disease most likely. Innumerable, bilateral pulmonary masses and nodules which have increased in size. Increasing known neoplasm in the in the LEFT upper lobe with ci rcumferential pleural thickening and nodularity. LEFT upper lobe neoplasm extends into the mediastinu m. Contiguous mass extends along the medial LEFT upper lobe to the level of the heart. Patient has known bilateral metastatic adenopathy. RIGHT hilar lymph nodes measure up to 1.8 cm. Subc arinal lymph node at 2.7 cm. Lymph nodes have increased slightly in size. Left-sided Mediport. Very minimal thickening of the LEFT adrenal gland. No metastatic lesions within the visualized liver. Mild thoracic spondylosis. CT/CT angio chest PE protcl [id number] IMPRESSION: 1. No pulmonary embolism. Opacification is adequate through the central and ma in pulmonary arteries. Opacification is limited involving the segmental branche s of the LEFT lung due to encasement by tumor. 2. Progression of pleural effusion with pleural metastatic nodules and innumer able pulmonary masses and nodules. 3. Mediastinal and hilar lymphadenopathy has slightly increased in size since the most recent exam. 4. LEFT upper lobe neoplasm extends into the mediastinum to the hilum.
[2022-09-13] MEDS: iohexol 350 mg/mL 500 mL Btl (per mL) IV (11:19)
== END 2022-09-13 10:07 | disposition home or self-care (01) ==
PROVIDERS: PCP Nurse Practitioner; Visit Provider Internal Medicine Medical Oncology
DX: C34.12 Malignant neoplasm of upper lobe, left bronchus or lung (principal); J90 Pleural effusion, not elsewhere classified; C77.1 Secondary and unspecified malignant neoplasm of intrathoracic lymph nodes; C78.2 Secondary malignant neoplasm of pleura; R59.0 Localized enlarged lymph nodes
CPT/HCPCS: 71275; Q9967

== ENCOUNTER 2022-09-14 10:45 | Day surgery (SDC) | payer OTHER, SELFPAY ==
[2022-09-14] VITALS (7 sets, daily range): BP systolic 95–110; BP diastolic 70–82; PULSE 103–120; RESP 18; TEMP 36.4; O2SAT 93–96; BMI 22.9
--- NOTE | 2022-09-14 11:54 | XR_ITS ---
WS: [id number] CHEST XRAY TECHNIQUE: Portable chest. CLINICAL INFORMATION: Post Thoracentesis COMPARISON: CTA 09/13/2022 FINDINGS: Improved left pleural effusion post thoracentesis. Small residual left pleural effusion. No pneumothorax. Numerous bilateral pulmonary metastasis similar to the prior CT. Left central venous c atheter unchanged. Cardiomegaly. IMPRESSION: 1. Improved left pleural effusion post thoracentesis. No pneumothorax. 2. Diffuse metastatic pulmonary nodules similar to the recent CT. 3. No pneumothorax. 4. Stable left central venous catheter
--- NOTE | 2022-09-14 12:00 | US_ITS ---
WS: [id number] ULTRASOUND-GUIDED THORACENTESIS CLINICAL INFORMATION: left lung plural effusion, SOB, Lung cancer COMPARISON: CTA 09/13/2022 PROCEDURE: Informed consent: The risks, benefits, and alternatives of the procedure were discussed with the abundio ent. Verbal and written consent was obtained. Timeout: A timeout was performed to confirm the correct patient, procedure, and site. Site: Left chest Preparation: A suitable skin site was identified. The patient was prepped and draped in usual sterile fashion. Lidocaine 1% was used for local anesthesia. Catheter: 4 Khmer One-Step catheter. Fluid Volume: 1000 ml Color: Clear yellow Discarded safely. 50 cc sent to the laboratory for further analysis Complications: No pneumothorax on post thoracentesis radiograph. Patient did experience vasovagal sy ncope during the procedure with lightheadedness and sweating. Patient shortly recovered with no addit ional complications. Serial blood pressure after the procedure was stable with normal oxygen saturati on Patient disposition: Discharged from the department in stable condition. IMPRESSION: Ultrasound-guided left chest thoracentesis with removal of 1000 cc. No pneumothorax on the post thoracentesis radiograph
== END 2022-09-14 12:35 | disposition home or self-care (01) ==
PROVIDERS: Radiology Neuroradiology; PCP Nurse Practitioner; Visit Provider Internal Medicine Medical Oncology
PROC: (CPT 32554; principal; 2022-09-14 12:00)
DX: C34.92 Malignant neoplasm of unspecified part of left bronchus or lung (principal); J90 Pleural effusion, not elsewhere classified; R06.02 Shortness of breath
CPT/HCPCS: 32555; 71045; 87070; 87075; 87205

== ENCOUNTER 2022-09-30 08:15 | Oncology outpatient (recurring) (ONCR) | payer OTHER, SELFPAY ==
[2022-09-13 08:00] VITALS: BP 100/71; PULSE 114; RESP 18; TEMP 36.6; O2SAT 94
[2022-09-13 08:01] VITALS: BMI 23.0
[2022-09-13 08:17] LABS: Basophils # 0.1 10^3/uL (0.0-0.1); Basophils % 0.9 %; Eosinophils # 0.3 10^3/uL (0.0-0.8); Eosinophils % 2.8 %; Hematocrit 38.2 % (42.0-52.0); Hemoglobin 12.7 g/dL (11.7-16.6); Lymphocytes # 0.8 10^3/uL (0.8-4.8); Lymphocytes % 7.6 %; Mean Corpuscular HGB Conc 33.2 g/dL (30.0-36.0); Mean Corpuscular Hemoglobin 31.1 pg (28.0-34.0); Mean Corpuscular Volume 93.6 fl (80-94); Mean Platelet Volume 9.1 fL (7.4-10.4); Monocytes % 9.2 %; Neutrophils # 8.58 10^3/uL (1.8-7.7); Neutrophils % 79.1 %; Nucleated Red Blood Cells % 0 %; Platelet Count 412 10^3/cmm (130-400); Red Blood Count 4.08 10^6/uL (4.1-5.3); Red Cell Distribution Width 12.4 % (12.1-15.1); White Blood Count 10.8 10^3/uL (4.0-10.0)
[2022-09-13 08:55] LABS: Alanine Aminotransferase 9 U/L (0-41); Albumin Level 3.5 g/dL (3.5-5.2); Alkaline Phosphatase 106 U/L (40-130); Anion Gap 16.4 (5-19); Aspartate Amino Transferase 18 U/L (0-40); Blood Urea Nitrogen 12 mg/dL (6-20); Calcium 9.2 mg/dL (8.5-10.5); Carbon Dioxide 25 mmol/L (22-29); Chloride 98 mmol/L (98-107); Glomerular Filtration Rate 87.9 mL/min (90-130); Glucose 82 mg/dL (65-115); Osmolality Calculated 279 mOsm/kg (285-295); Potassium 4.4 mmol/L (3.5-5.1); Sodium 135 mmol/L (136-145); Total Bilirubin 0.2 mg/dL (0.15-1.2); Total Protein 7.5 g/dL (6.6-8.7)
[2022-09-13 09:06] LABS: Hepatitis B Core AB, Total Non-Reactive (Nonreactive); Hepatitis B Surface Antigen Non-Reactive (Nonreactive)
[2022-09-23 07:58] VITALS: BMI 22.8
[2022-09-23 07:59] VITALS: BP 84/61; PULSE 98; RESP 18; TEMP 36.9; O2SAT 95
[2022-09-23 08:19] LABS: Basophils # 0.1 10^3/uL (0.0-0.1); Basophils % 1.2 %; Eosinophils # 0.3 10^3/uL (0.0-0.8); Eosinophils % 5.2 %; Hematocrit 36.6 % (42.0-52.0); Hemoglobin 11.7 g/dL (11.7-16.6); Lymphocytes # 0.6 10^3/uL (0.8-4.8); Lymphocytes % 10.7 %; Mean Corpuscular Hemoglobin 30.5 pg (28.0-34.0); Mean Corpuscular Volume 95.3 fl (80-94); Mean Platelet Volume 8.9 fL (7.4-10.4); Monocytes # 0.5 10^3/uL (0.2-0.9); Monocytes % 8.5 %; Neutrophils # 4.25 10^3/uL (1.8-7.7); Neutrophils % 73.7 %; Nucleated Red Blood Cells % 0 %; Platelet Count 423 10^3/cmm (130-400); Red Blood Count 3.84 10^6/uL (4.1-5.3); Red Cell Distribution Width 12.5 % (12.1-15.1); White Blood Count 5.8 10^3/uL (4.0-10.0)
[2022-09-23 08:51] LABS: Alanine Aminotransferase 10 U/L (0-41); Alkaline Phosphatase 99 U/L (40-130); Chloride 101 mmol/L (98-107); Potassium 4.3 mmol/L (3.5-5.1); Sodium 138 mmol/L (136-145)
[2022-09-23 09:16] LABS: Anion Gap 13.3 (5-19); Aspartate Amino Transferase 11 U/L (0-40); Blood Urea Nitrogen 9 mg/dL (6-20); Calcium 8.8 mg/dL (8.5-10.5); Carbon Dioxide 28 mmol/L (22-29); Glomerular Filtration Rate 117.5 mL/min (90-130); Glucose 115 mg/dL (65-115); Osmolality Calculated 286 mOsm/kg (285-295); Total Bilirubin 0.2 mg/dL (0.15-1.2); Total Protein 6.7 g/dL (6.6-8.7)
[2022-09-23 09:27] LABS: Albumin Level 3.2 g/dL (3.5-5.2); Globulin 3.5 g/dL (1.3-4.6)
[2022-09-30 08:07] VITALS: BP 92/69; PULSE 71; RESP 18; TEMP 36.6; O2SAT 94; BMI 23.4
[2022-09-30 08:27] LABS: Basophils # 0.1 10^3/uL (0.0-0.1); Basophils % 1.6 %; Eosinophils # 0.3 10^3/uL (0.0-0.8); Eosinophils % 6.1 %; Hematocrit 39.8 % (37-53); Lymphocytes # 0.7 10^3/uL (0.8-4.8); Lymphocytes % 15.1 %; Mean Corpuscular HGB Conc 32.2 g/dL (30-55); Mean Corpuscular Hemoglobin 31.1 pg (27-33); Mean Corpuscular Volume 96.8 fl (82-101); Mean Platelet Volume 8.9 fL (7.4-10.4); Monocytes # 0.5 10^3/uL (0.2-0.9); Monocytes % 11.9 %; Neutrophils # 2.86 10^3/uL (1.8-7.7); Neutrophils % 64.2 %; Nucleated Red Blood Cells % 0 %; Platelet Count 338 10^3/cmm (157-399); Red Blood Count 4.11 10^6/uL (3.85-5.65); Red Cell Distribution Width 12.7 % (12.1-15.1); White Blood Count 4.45 10^3/uL (3.29-11.43)
[2022-09-30 08:47] LABS: Alanine Aminotransferase 10 U/L (0-41); Albumin Level 3.6 g/dL (3.5-5.2); Alkaline Phosphatase 99 U/L (40-130); Anion Gap 13.4 (5-19); Aspartate Amino Transferase 11 U/L (0-40); Blood Urea Nitrogen 17 mg/dL (6-20); Carbon Dioxide 28 mmol/L (22-29); Chloride 101 mmol/L (98-107); Globulin 3.2 g/dL (1.3-4.6); Glomerular Filtration Rate 140.4 mL/min (90-130); Glucose 89 mg/dL (65-115); Osmolality Calculated 287 mOsm/kg (285-295); Potassium 4.4 mmol/L (3.5-5.1); Sodium 138 mmol/L (136-145); Total Bilirubin 0.2 mg/dL (0.15-1.2); Total Protein 6.8 g/dL (6.6-8.7)
== END 2022-10-07 23:59 | disposition home or self-care (01) ==
PROVIDERS: Nurse Practitioner Family; PCP Nurse Practitioner; Visit Provider Internal Medicine Medical Oncology
DX: C34.82 Malignant neoplasm of overlapping sites of left bronchus and lung; C78.01 Secondary malignant neoplasm of right lung; C77.8 Secondary and unspecified malignant neoplasm of lymph nodes of multiple regions; F17.210 Nicotine dependence, cigarettes, uncomplicated; J90 Pleural effusion, not elsewhere classified; R11.0 Nausea; Z79.899 Other long term (current) drug therapy; Z95.828 Presence of other vascular implants and grafts
CPT/HCPCS: 36591; 80053; 85025; 86705; 86706; 87340; 99214; J1642

== ENCOUNTER 2022-10-04 09:40 | Outpatient (CLI) | payer OTHER, SELFPAY ==
--- NOTE | 2022-10-04 09:45 | USCV_ITS ---
Billy Capone Age: 56 Gender: M : 1965 Exam Date: 10/04/2022 10:00 Ordering Phys: Brenda Gomez APRN Technologist: Zay Robert [place] [facility] [place]: tack BP: 130 / 80 HR: 72 Rhythm: Sinus Technical Quality: Adequate MEASUREMENTS (Male / Female) Normal Values 2D ECHO LV Diastolic Diameter PLAX 4.1 cm 4.2 - 5.9 / 3.9 - 5.3 cm LV Systolic Diameter PLAX 2.0 cm IVS Diastolic Thickness 0.9 cm 0.6 - 1.0 / 0.6 - 0.9 cm IVS Systolic Thickness 1.3 cm LVPW Diastolic Thickness 0.9 cm 0.6 - 1.0 / 0.6 - 0.9 cm LVPW Systolic Thickness 1.0 cm LVOT Diameter 2.0 cm LV Ejection Fraction 2D Teich 80.7 % LV Ejection Fraction MOD 2C 73.6 % LV Ejection Fraction 2C AL 73.4 % LA Diameter 2.8 cm IVC Diameter 1.6 cm M-MODE LV Diastolic Diameter MM 3.9 cm 4.2 - 5.9 / 3.9 - 5.3 cm LV Systolic Diameter MM 2.3 cm LV Ejection Fraction MM Teich 72.6 % IVS Diastolic Thickness MM 1.1 cm 0.6 - 1.0 / 0.6 - 0.9 cm IVS Systolic Thickness MM 1.5 cm LVPW Diastolic Thickness MM 1.0 cm 0.6 - 1.0 / 0.6 - 0.9 cm LVPW Systolic Thickness MM 1.8 cm RV Diastolic Diameter MM 1.6 cm Aortic Annulus Diameter 3.3 cm LA Ao Ratio MM 1.0 MV E Point Septal Separation 0.5 cm DOPPLER AV Peak Velocity 132.0 cm/s LVOT Peak Velocity 98.0 cm/s AV Area Cont Eq vti 2.5 cm squared AV Area Cont Eq pk 2.4 cm squared MV Area PHT 5.0 cm squared Mitral E to A Ratio 1.1 MV E' Velocity 43.5 cm/s Mitral E to MV E' Ratio 6.9 Mitral E to LV E' Lateral Ratio 6.2 Mitral E to LV E' Septal Ratio 7.7 TR Peak Velocity 190.0 cm/s TR Peak Gradient 14.4 mmHg TV Peak E Velocity 84.0 cm/s Right Atrial Pressure 3.0 mmHg Pulmonary Artery Systolic Pressu 17.4 mmHg RV Acceleration Time 0.1 s FINDINGS Left Ventricle Normal left ventricular size and systolic function, EF 72 %. No regional wall motion abnormalities. Right Ventricle The right ventricle is normal in size and function. Right Atrium The right atrium is normal in size. Left Atrium The left atrium is normal in size. Mitral Valve No gross abnormalities noted Aortic Valve Moderate calcification at the noncoronary cusp of the aortic valve . Tricuspid Valve No gross abnormalities noted Pulmonic Valve Trace pulmonary valve regurgitation. Pericardium No pericardial effusion. Aorta Normal ascending aorta dimension. IVC Normal inferior vena cava. CONCLUSIONS Normal left ventricular size and systolic function, EF 72 %. No regional wall motion abnormalities. Moderate calcification at the noncoronary cusp of the aortic valve . No significant aortic valve stenosis. Trace pulmonary valve regurgitation. There is no pericardial effusion. There are no intracardiac masses. No similar previous studies are available for comparison Dr Melany Gonsalves MD FACC (Electronically Signed) Final Date: 06 October 2022 00:55 S
== END 2022-10-04 09:41 | disposition home or self-care (01) ==
PROVIDERS: PCP Nurse Practitioner; Visit Provider Nurse Practitioner Family
DX: R00.0 Tachycardia, unspecified (principal); R06.02 Shortness of breath; I35.8 Other nonrheumatic aortic valve disorders
CPT/HCPCS: 93306

== ENCOUNTER 2022-10-12 08:33 | Outpatient (CLI) | payer OTHER, SELFPAY ==
--- NOTE | 2022-10-12 08:45 | MR_ITS ---
WS: [id number] MRI BRAIN WITH AND WITHOUT CONTRAST HISTORY: history of lung cancer with suspected brain met COMPARISON: Prior MRI 01/04/2022, CT head 05/06/2022 TECHNIQUE: Multiplanar imaging performed through the brain with MultiHance 15 ml's IV. No acute infarcts are seen. Huang-white matter differentiation is well preserved. There is a new well- circumscribed nonenhancing cystic mass in the paramedian LEFT cerebellum measuring 1.2 x 1.5 cm. No s ignificant mass effect. There is no enhancement. There is an additional new cortical cyst in the post erior LEFT frontal cortex measuring 0.6 x 0.4 cm which also does not enhance. No susceptibility artifacts or prior lacunar infarcts. Ventricles and extra-axial spaces are normal. Clivus and pituitary gland are normal. Reidentified is an area of enhancement in the paramedian LEFT cerebellum which was described on the p rior study. Enhancing nodule measures approximately 4 mm and has not significantly changed. Indetermi nehemiah for metastatic brain lesion. No new areas of abnormal enhancement. Dural venous sinuses are normal. Paranasal sinuses: Well aerated with no significant disease. Mastoid air cells: Normal. Calvarium and scalp: Normal. IMPRESSION: 1. No acute infarct. 2. Previously described enhancing lesion in the LEFT cerebellum is reidentified with no increase in size. As there has been no increase in size this is less likely metastatic site. Cannot completely ru le out metastatic disease within the brain. May be vascular in etiology. No additional areas of abnor mal enhancement. 3. New cystic lesions which do not enhance are identified since 01/04/2022. Largest is within the ce rebellum and the second in the posterior LEFT frontal lobe. These have not been noted on prior imagin g studies of the brain. Without enhancement these are probably benign. May be posttreatment related.
[2022-10-12] MEDS: gadobenate dimeglumine 20 mL vial IV (10:02)
== END 2022-10-12 08:34 | disposition home or self-care (01) ==
LOC: RAD 08:33
PROVIDERS: PCP Nurse Practitioner; Visit Provider Nurse Practitioner Family
DX: Z85.118 Personal history of other malignant neoplasm of bronchus and lung (principal); G93.9 Disorder of brain, unspecified
CPT/HCPCS: 70553; A9577

== ENCOUNTER → 2022-10-13 14:23 | Outpatient (BNVA) | payer OTHER, SELFPAY | PROVIDERS: PCP Nurse Practitioner; Visit Provider Internal Medicine | DX: R00.0 Tachycardia, unspecified (principal); Z87.891 Personal history of nicotine dependence | CPT/HCPCS: 99204 ==

== ENCOUNTER 2022-10-14 07:39 | Oncology outpatient (recurring) (ONCR) | payer OTHER, SELFPAY ==
[2022-10-14 07:40] VITALS: BP 96/68; PULSE 90; RESP 18; TEMP 36.6; O2SAT 96; BMI 24.7
[2022-10-14 07:51] LABS: Basophils # 0.1 10^3/uL (0.0-0.1); Basophils % 1.1 %; Eosinophils # 0.4 10^3/uL (0.0-0.8); Eosinophils % 6.9 %; Hematocrit 41.1 % (37-53); Lymphocytes # 0.7 10^3/uL (0.8-4.8); Lymphocytes % 12.7 %; Mean Corpuscular HGB Conc 32.6 g/dL (30-55); Mean Corpuscular Hemoglobin 30.9 pg (27-33); Mean Corpuscular Volume 94.7 fl (82-101); Mean Platelet Volume 9.1 fL (7.4-10.4); Monocytes # 0.6 10^3/uL (0.2-0.9); Monocytes % 11.8 %; Neutrophils % 67.3 %; Nucleated Red Blood Cells % 0 %; Platelet Count 221 10^3/cmm (157-399); Red Blood Count 4.34 10^6/uL (3.85-5.65); Red Cell Distribution Width 12.9 % (12.1-15.1); White Blood Count 5.35 10^3/uL (3.29-11.43)
[2022-10-14 08:13] LABS: Alanine Aminotransferase 16 U/L (0-41); Albumin Level 3.8 g/dL (3.5-5.2); Alkaline Phosphatase 105 U/L (40-130); Anion Gap 13.6 (5-19); Aspartate Amino Transferase 27 U/L (0-40); Carbon Dioxide 26 mmol/L (22-29); Chloride 103 mmol/L (98-107); Globulin 3.3 g/dL (1.3-4.6); Potassium 4.6 mmol/L (3.5-5.1); Sodium 138 mmol/L (136-145); Total Bilirubin 0.2 mg/dL (0.15-1.2); Total Protein 7.1 g/dL (6.6-8.7)
[2022-10-14 08:22] LABS: Blood Urea Nitrogen 11 mg/dL (6-20); Calcium 9.1 mg/dL (8.5-10.5); Creatinine Clr Calc Pharmacy 149.3199; Glomerular Filtration Rate 140.4 mL/min (90-130); Glucose 122 mg/dL (65-115); Osmolality Calculated 287 mOsm/kg (285-295)
== END 2022-11-06 23:59 | disposition home or self-care (01) ==
PROVIDERS: Nurse Practitioner Family; PCP Nurse Practitioner; Visit Provider Internal Medicine Medical Oncology
DX: C34.12 Malignant neoplasm of upper lobe, left bronchus or lung; C34.82 Malignant neoplasm of overlapping sites of left bronchus and lung; Z51.12 Encounter for antineoplastic immunotherapy; C34.92 Malignant neoplasm of unspecified part of left bronchus or lung; C78.01 Secondary malignant neoplasm of right lung; C77.8 Secondary and unspecified malignant neoplasm of lymph nodes of multiple regions; R07.89 Other chest pain; J90 Pleural effusion, not elsewhere classified; R00.0 Tachycardia, unspecified; R06.02 Shortness of breath; Z79.899 Other long term (current) drug therapy; Z87.891 Personal history of nicotine dependence; Z95.828 Presence of other vascular implants and grafts
CPT/HCPCS: 36591; 80053; 85025; 99214; J1642

== ENCOUNTER 2022-11-18 08:32 | Outpatient (CLI) | payer OTHER, SELFPAY ==
--- NOTE | 2022-11-18 08:45 | CT_ITS ---
WS: [email or web address] CT CHEST ANGIOGRAPHY WITH REFORMATS HISTORY: increase SOB, tachycardia, lung ca, right sided chest pain TECHNIQUE: Contiguous axial images are obtained through the chest during arterial injection of intrav enous contrast. Images are reconstructed to evaluate the pulmonary arteries. MIP imaging also reviewe d. All CT scans at [facility] use at least one of these dose optimization techniques: automat ed exposure control; mA and/or kV adjustment per patient size (includes targeted exams where dose is matched to clinical indication); or iterative reconstruction. CONTRAST: Omnipaque 350; 100 mL IV. DLP: 351.29 mGy.cm COMPARISON: 09/13/2022 Good opacification of the pulmonary artery. There are no pulmonary emboli. Good opacification central pulmonary arteries. Opacification is limited in the LEFT lower lobe due to tumor encasement of the p ulmonary artery. No pulmonary emboli through the segmental and some of the subsegmental branches. Nor mal sized pulmonary artery. Mild atherosclerosis aorta. Innumerable pulmonary nodules have significantly decreased in size. Some of the pulmonary metastatic nodules have actually resolved. The largest nodules are approximately 1 cm. Tumor encasement along th e medial LEFT upper thorax is actually significantly improved. Residual tumor at the LEFT apex is timothy roximately 15 mm. There is continued soft tissue encasement of the central LEFT bronchus which is pro bably also tumor but improving. Small, improving LEFT pleural effusion. Very small RIGHT pleural effu terrance. LEFT subclavian Port-A-Cath. No adrenal mass. Heart is normal size. Mediastinal and hilar lymph nodes are reidentified. The largest at the RIGHT hilum is 17 mm which is unchanged. IMPRESSION: 1. No pulmonary embolism. 2. Significant improvement in the metastatic pulmonary nodules and the LEFT upper lobe neoplasm since 09/13/2022. 3. Small bilateral pleural effusions, LEFT greater than RIGHT. Moderate improvement in the LEFT pleur al effusion. 4. Mediastinal and hilar lymphadenopathy not significantly unchanged. Improving tumor encasement of t he LEFT hilum.
[2022-11-18] MEDS: iohexol 350 mg/mL 500 mL Btl (per mL) IV (09:01)
== END 2022-11-18 08:33 | disposition home or self-care (01) ==
PROVIDERS: PCP Nurse Practitioner; Visit Provider Nurse Practitioner Family
DX: C34.12 Malignant neoplasm of upper lobe, left bronchus or lung (principal); C78.02 Secondary malignant neoplasm of left lung; C78.01 Secondary malignant neoplasm of right lung; J90 Pleural effusion, not elsewhere classified; R00.0 Tachycardia, unspecified; R06.02 Shortness of breath; R59.0 Localized enlarged lymph nodes; R42 Dizziness and giddiness; R41.3 Other amnesia; R51.9 Headache, unspecified; Z87.891 Personal history of nicotine dependence
CPT/HCPCS: 71275; 99214; Q9967

== ENCOUNTER 2022-12-02 07:54 | Oncology outpatient (recurring) (ONCR) | payer OTHER, SELFPAY ==
[2022-11-11 08:14] VITALS: BP 93/72; PULSE 98; RESP 17; TEMP 36.3; O2SAT 93
[2022-11-11 08:15] VITALS: BMI 25.2
[2022-11-11 08:18] LABS: Basophils # 0.1 10^3/uL (0.0-0.1); Basophils % 1.6 %; Eosinophils # 0.3 10^3/uL (0.0-0.8); Lymphocytes # 0.7 10^3/uL (0.8-4.8); Lymphocytes % 13.8 %; Mean Corpuscular HGB Conc 32.8 g/dL (30-55); Mean Corpuscular Volume 94.5 fl (82-101); Mean Platelet Volume 9.3 fL (7.4-10.4); Monocytes # 0.6 10^3/uL (0.2-0.9); Monocytes % 11.6 %; Neutrophils # 3.43 10^3/uL (1.8-7.7); Neutrophils % 66.4 %; Nucleated Red Blood Cells % 0 %; Platelet Count 247 10^3/cmm (157-399); Red Blood Count 4.55 10^6/uL (3.85-5.65); Red Cell Distribution Width 13.2 % (12.1-15.1); White Blood Count 5.16 10^3/uL (3.29-11.43)
[2022-11-11 08:35] LABS: Alanine Aminotransferase 11 U/L (0-41); Albumin Level 3.9 g/dL (3.5-5.2); Alkaline Phosphatase 97 U/L (40-130); Anion Gap 10.3 (5-19); Aspartate Amino Transferase 13 U/L (0-40); Blood Urea Nitrogen 10 mg/dL (6-20); Calcium 9.3 mg/dL (8.5-10.5); Carbon Dioxide 29 mmol/L (22-29); Chloride 103 mmol/L (98-107); Creatinine Clr Calc Pharmacy 150.7644; Globulin 3.6 g/dL (1.3-4.6); Glomerular Filtration Rate 140.4 mL/min (90-130); Glucose 113 mg/dL (65-115); Osmolality Calculated 286 mOsm/kg (285-295); Potassium 4.3 mmol/L (3.5-5.1); Sodium 138 mmol/L (136-145); Total Bilirubin 0.2 mg/dL (0.15-1.2); Total Protein 7.5 g/dL (6.6-8.7)
[2022-11-18] MEDS: diphenhydrAMINE 50 mg/mL SDV 1mL 25 MG IVP (09:33)
[2022-11-18] MEDS: ondansetron 2 mg/ML SDV 2 mL 8 MG IVP (09:37)
[2022-11-18 10:45] VITALS: BP 117/64; PULSE 74; RESP 18; TEMP 36.6; O2SAT 98
[2022-11-18 10:54] LABS: Basophils # 0.1 10^3/uL (0.0-0.1); Basophils % 1.3 %; Eosinophils # 0.2 10^3/uL (0.0-0.8); Eosinophils % 3.3 %; Hematocrit 42.6 % (37-53); Lymphocytes # 0.6 10^3/uL (0.8-4.8); Lymphocytes % 10.2 %; Mean Corpuscular HGB Conc 33.1 g/dL (30-55); Mean Corpuscular Hemoglobin 31.4 pg (27-33); Mean Corpuscular Volume 94.9 fl (82-101); Mean Platelet Volume 9.1 fL (7.4-10.4); Monocytes # 0.8 10^3/uL (0.2-0.9); Monocytes % 12.3 %; Neutrophils # 4.56 10^3/uL (1.8-7.7); Neutrophils % 72.6 %; Nucleated Red Blood Cells % 0 %; Platelet Count 247 10^3/cmm (157-399); Red Blood Count 4.49 10^6/uL (3.85-5.65); Red Cell Distribution Width 13.2 % (12.1-15.1); White Blood Count 6.28 10^3/uL (3.29-11.43)
[2022-11-18 11:14] LABS: Alanine Aminotransferase 11 U/L (0-41); Alkaline Phosphatase 96 U/L (40-130); Anion Gap 12.1 (5-19); Aspartate Amino Transferase 11 U/L (0-40); Blood Urea Nitrogen 14 mg/dL (6-20); Carbon Dioxide 27 mmol/L (22-29); Chloride 102 mmol/L (98-107); Globulin 3.4 g/dL (1.3-4.6); Glomerular Filtration Rate 139.9 mL/min (90-130); Glucose 94 mg/dL (65-115); Osmolality Calculated 284 mOsm/kg (285-295); Potassium 4.1 mmol/L (3.5-5.1); Sodium 137 mmol/L (136-145); Total Bilirubin 0.2 mg/dL (0.15-1.2); Total Protein 7.4 g/dL (6.6-8.7)
[2022-11-18 11:17] LABS: Creatinine Clr Calc Pharmacy 149.5024
--- NOTE | 2022-12-02 09:26 | XR_ITS ---
WS: [email or web address] Exam: XR chest 3V [id number] Date/Time of Exam: 12/02/2022 9:35 AM Reason For Exam: cough/wheezing, history of pleural effusion Comparison 09/14/2022. Chest CT 11/18/2022. Diffuse interstitial infiltrates in both lungs. This may represent pneumonia or chronic change. Signi ficantly fewer pulmonary nodules and masses noted when compared to the last study. Heart size is with in normal limits. The mediastinum is normal in contour. A left-sided Chemo-Port ends at the cavoatria l junction. Probable LEFT subpulmonic pleural effusion. No pneumothorax. Bony structures are intact. Focal scarring and/or atelectasis in the LEFT upper lobe with associated pleural thickening. IMPRESSION: 1. Diffuse interstitial infiltrates throughout both lungs that may represent chronic changes or inter stitial pneumonia. 2. Significantly fewer pulmonary nodules and masses when compared to the last exam. 3. Probable LEFT subpulmonic pleural effusion. Improvement since chest CT 11/18/2022.
== END 2022-12-07 23:59 | disposition home or self-care (01) ==
PROVIDERS: Nurse Practitioner Family; PCP Nurse Practitioner; Visit Provider Internal Medicine Medical Oncology
DX: C34.12 Malignant neoplasm of upper lobe, left bronchus or lung; C34.82 Malignant neoplasm of overlapping sites of left bronchus and lung; C34.92 Malignant neoplasm of unspecified part of left bronchus or lung; R07.9 Chest pain, unspecified; R00.0 Tachycardia, unspecified; Z79.899 Other long term (current) drug therapy
CPT/HCPCS: 36591; 71047; 71275; 80053; 85025; 96375; 99214; J1200; J1642; J2405; Q9967

== ENCOUNTER 2022-12-09 08:57 | Outpatient (CLI) | payer OTHER, SELFPAY ==
[2022-12-09] MEDS: iohexol 350 mg/mL 500 mL Btl (per mL) IV (09:03)
--- NOTE | 2022-12-09 09:30 | CT_ITS ---
WS: [id number] CT CHEST TECHNIQUE: Contrast enhanced CT of the chest with coronal and sagittal reformatted images. CLINICAL INFORMATION: Diffuse interstitial infiltrates both lungs noted on CXR COMPARISON: 11/18/2022 DLP: 355.[address] scans at [facility] use at least one of these dose optimization techniques: automated e xposure control; mA and/or kV adjustment per patient size (includes targeted exams where dose is matc hed to clinical indication); or iterative reconstruction. FINDINGS: Moderate LEFT pleural effusion unchanged since 11/18/2022. Diffuse bilateral metastatic nodules in balaji th lungs appears progressed compared to 11/18/2022 with increased number and size of lesions. In ronald tion there is progressed consolidation and encasement of the LEFT hilum with airspace opacification. Associated air bronchograms. This likely represents a combination of progressed disease and pneumonia . Stable slightly prominent RIGHT hilar lymph nodes. Aorta calcification. Normal caliber thoracic aorta . No axillary lymphadenopathy. Adrenal glands are normal. Splenic granulomas. Mild thoracic kyphosis. Disc space narrowing in the mi dthoracic spine. IMPRESSION: 1. Moderate LEFT pleural effusion is stable. 2. Evidence of disease progression compared to previous with new and progressed bilateral metastatic pulmonary nodules. 3. Progressed soft tissue encasement and airspace opacification about the LEFT hilum likely due to a combination of progressed disease and pneumonia. 4. No progressed lymphadenopathy. 5. No other significant changes.
== END 2022-12-09 08:58 | disposition home or self-care (01) ==
LOC: RAD 08:57
PROVIDERS: PCP Nurse Practitioner; Visit Provider Nurse Practitioner Family
DX: C34.12 Malignant neoplasm of upper lobe, left bronchus or lung (principal); C78.02 Secondary malignant neoplasm of left lung; C78.01 Secondary malignant neoplasm of right lung; C79.51 Secondary malignant neoplasm of bone; J90 Pleural effusion, not elsewhere classified; R51.9 Headache, unspecified; R50.9 Fever, unspecified; Z92.3 Personal history of irradiation; Z92.21 Personal history of antineoplastic chemotherapy; Z87.891 Personal history of nicotine dependence
CPT/HCPCS: 71260; 99214; Q9967

== ENCOUNTER 2022-12-10 07:13 | Emergency (ER) | payer OTHER, SELFPAY ==
[2022-12-10] VITALS (8 sets, daily range): BP systolic 100; BP diastolic 64; PULSE 99–124; RESP 16–18; TEMP 38.1; O2SAT 91–95; BMI 24.7
--- NOTE | 2022-12-10 07:18 | XRR_ITS ---
PROCEDURE INFORMATION: Exam: XR Chest Exam date and time: 12/10/2022 7:35 AM Age: 57 years old Clinical indication: Cough and dyspnea; Prior surgery; Surgery date: 6+ months; Surgery type: Port; Patient HX: HX of lung cancer; Additional info: Dyspnea/cough TECHNIQUE: Imaging protocol: Radiologic exam of the chest. Views: 1 view. COMPARISON: CT chest w con* [id number] 12/09/2022 9:32 AM FINDINGS: Tubes, catheters and devices: Left subclavian approach MediPort is in satisfactory position, with distal tip at the level of the SVC/RA junction. Lungs: Low lung volumes. Persistent airspace opacity in the left hilar region extending to the left upper lobe and scattered bilateral pulmonary nodules, as seen on previous CT chest. Pleural spaces: Unremarkable. No pleural effusion. No pneumothorax. Heart/Mediastinum: Stable cardiomediastinal silhouette. Bones/joints: Unremarkable. XR/XR chest 1V portable [id number] IMPRESSION: Persistent airspace opacity in the left hilar region extending to the left upper lobe and scattered bilateral pulmonary nodules.
--- NOTE | 2022-12-10 07:22 | ECG_ITS ---
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 Measurements Intervals [place] Rate: 123 P: 72 [place]: 152 QRS: 104 QRSD: 78 T: 70 QT: 279 QTc: 400 Interpretive Statements SINUS TACHYCARDIA RIGHT AXIS DEVIATION [QRS AXIS > 100] MINIMAL ST DEPRESSION [0.025+ mV ST DEPRESSION] Compared to ECG 06/29/2022 13:54:04 Right-axis deviation now present Sinus rhythm no longer present ST (T wave) deviation still present Electronically Signed On 12-10-2022 12:29:27 CDT by Oracio Tidwell M.D. [id number]
--- NOTE | 2022-12-10 07:22 | ED_ITS ---
HPI - General Adult General: Chief complaint: Shortness of Breath/Dyspnea Stated complaint: Fever, fast heart rate, sob Time Seen by Provider: 12/10/22 07:15 Source: patient Mode of arrival: ambulatory History of Present Illness: 57-year-old male with known non-small cell lung cancer. Patient at this point has metastatic cancer he had a CT yesterday showed a pneumonia and a pleural left pleural effusion he is currently on Levaquin and was started on doxycycline yesterday as well as increasing the Levaquin. He is not currently receiving any treatment. He has gone through initial treatment and then maintenance immune therapy was started in May but then stopped because of progression of disease. In September he was started on her targeted therapy but has stopped this now. He presents today complaining planing of fever shortness of breath and tachycardia progression of his pneumonia symptoms. CT done yesterday shows progression of disease from scan done 3 weeks prior is also a comment of encasement of the left hilum with worsening pneumonia, his left pleural effusion is stable Onset (ago): day(s) Relieving factors: rest Exacerbating factors: movement Associated symptoms: Reports cough, fevers/chills and malaise; Deny chest pain, confusion, diaphoresis, decreased appetite, dyspnea, headach e(s), nausea, rash, palpitations, seizures, short of breath, syncope, vomiting or weakness Review of Systems Const: Reports: fever(s), chills and malaise; Denies: diaphoresis Card: Denies: chest pain, palpitations or syncope Resp: Denies: dyspnea GI: Denies: abdominal pain, nausea or vomiting : Denies: dysuria, urinary frequency or urinary urgency Musc: Denies: neck pain or back pain Skin/Breast: Denies: rash Neuro: Denies: headache(s) or confusion PFSH ED PFSH: Medical History Degenerative joint disease of spine Non-small cell lung cancer Surgical History History of esophagogastroduodenoscopy (EGD) 2009 History of lumbar surgery x3 History of removal of Port-a-Cath History of testicular surgery double testicular torsion with hernia repair Hx of colonoscopy with polypectomy 2010 Family History Grandfather Cancer Grandmother Dementia Father Hypertension Other Anesthesia complication Diabetes Hyperlipidemia Denies family history of CAD (coronary artery disease) Clotting disorder Psychiatric illness Chronic kidney disease (CKD) Suicide Bleeding disorder Lung disease Stroke Social History Quit status (tobacco/nicotine): has quit using Year quit tobacco: September 2022 Former quit date comment: quit 2 weeks prior, smoked prior for 40 years Alcohol intake: current Alcohol intake frequency: holidays/special occasions only Physical Exam Const: GENERAL APPEARANCE: cooperative and comfortable ORIENTATION/CONSCIOUSNESS: Yes awake, Yes oriented to person, Yes oriented to place and Yes oriented to time HENMT: COMMON NORMALS: normocephalic, atraumatic and hearing grossly normal bilaterally HEAD & SCALP: normocephalic and atraumatic Resp: COMMON NORMALS: normal respiratory effort, No retractions and No use of accessory muscles AUSCULTATION: rales and diminished lung sounds on the left Cardio: COMMON NORMALS: regular rhythm and No murmurs present (Cardio) RATE: tachycardic RHYTHM: regular rhythm GI: COMMON NORMALS: Soft to palpation and No hepatosplenomegaly present AUSCULTATION: Yes normoactive bowel sounds PALPATION: Yes Soft to palpation, No Tenderness to palpation present (GI), No Guarding due to palpation present (GI) and Yes No hepatosplenomegaly present Extremity: COMMON NORMALS: normal to inspection, capillary refill normal, no clubbing, cyanosis or edema, no calf tenderness and no pedal edema Neuro: SENSORIUM/ORIENTATION: Yes oriented to person, Yes oriented to place and Yes oriented to time Skin: COMMON NORMALS: no rashes or lesions noted GENERAL SKIN EXAM: no rashes or lesions noted Course Vital Signs: Vital signs: Vital Signs Temperature 100.6 F H 12/10/22 07:19 Pulse Rate 103 H 12/10/22 10:05 Respiratory Rate 17 12/10/22 10:05 Blood Pressure 100/64 12/10/22 07:25 Pulse Oximetry 94 12/10/22 10:05 Oxygen Delivery Me thod Nasal Cannula 12/10/22 10:05 Oxygen Flow Rate 2 12/10/22 10:05 MDM - General Adult Medical Decision Making CT done yesterday shows pneumonia and progression of the tumor burden from 3 weeks prior. There is near occlusion of the left mainstem and some of the secondary branches are occluded. Believe he has a postobstructive pneumonia I discussed with Dr. Kenny who read the CT he felt that the patient may be a candidate for a pulmonary stent discussed Dr. Hdz he concurred. We will go ahead and transfer the patient he request to go to [place] I did talk to Dr. Davis there he they do have the capacity to do a pulmonary stent they are willing to take him on transfer ER to ER the medicine team will see him in the ER and make arrangements for the admission. Discussed with the patient and the family they are agreeable. He has been started on Zosyn and vancomycin since he failed Levaquin and doxycycline cultures have been done. Medical Records I reviewed the patient's medical records. Lab Data I reviewed the patient's lab results. 12/10/22 07:38 12/10/22 07:38 Radiology Impressions Chest X-Ray 12/10/22 07:18 IMPRESSION: Persistent airspace opacity in the left hilar region extending to the left upper lobe and scattered bilateral pulmonary nodules. Laboratory Results WBC 9.32 10^3/uL (3.29-11.43) 12/10/22 07:38 RBC 4.40 10^6/uL (3.85-5.65) 12/10/22 07:38 Hgb 13.80 g/dL (11.27-16.99) 12/10/22 07:38 Hct 42.3 % (37-53) 12/10/22 07:38 MCV 96.1 fl (82-101) 12/10/22 07:38 MCH 31.4 pg (27-33) 12/10/22 07:38 MCHC 32.6 g/dL (30-55) 12/10/22 07:38 RDW 13.2 % (12.1-15.1) 12/10/22 07:38 Plt Count 226 10^3/cmm (157-399) 12/10/22 07:38 MPV 9.2 fL (7.4-10.4) 12/10/22 07:38 Neut % (Auto) 83.0 % 12/10/22 07:38 Lymph % (Auto) 6.7 % 12/10/22 07:38 [place] % (Auto) 8.9 % 12/10/22 07:38 Eos % (Auto) 0.5 % 12/10/22 07:38 Baso % (Auto) 0.4 % 12/10/22 07:38 Neut # (Auto) 7.73 10^3/uL (1.8-7.7) H 12/10/22 07:38 Lymph # (Auto) 0.6 10^3/uL (0.8-4.8) L 12/10/22 07:38 [place] # (Auto) 0.8 10^3/uL (0.2-0.9) 12/10/22 07:38 Eos # (Auto) 0.1 10^3/uL (0.0-0.8) 12/10/22 07:38 Baso # (Auto) 0.0 10^3/uL (0.0-0.1) 12/10/22 07:38 Nucleated RBC % (auto) 0 % 12/10/22 07:38 Nucleated RBCs # 0.0 /100WBC 12/10/22 07:38 Sodium 134 mmol/L (136-145) L 12/10/22 07:38 Potassium 3.5 mmol/L (3.5-5.1) 12/10/22 07:38 Chloride 98 mmol/L (98-107) 12/10/22 07:38 Carbon Dioxide 24 mmol/L (22-29) 12/10/22 07:38 Anion Gap 15.5 (5-19) 12/10/22 07:38 BUN 10 mg/dL (6-20) 12/10/22 07:38 Creatinine 0.7 mg/dL (0.7-1.2) 12/10/22 07:38 GFR Calculation 117.1 mL/min (90-130) 12/10/22 07:38 Glucose 128 mg/dL (65-115) H 12/10/22 07:38 Calculated Osmolality 279 mOsm/kg (285-295) L 12/10/22 07:38 Lactic Acid 1.7 mmol/L (0.5-2.2) 12/10/22 07:38 Calcium 8.9 mg/dL (8.5-10.5) 12/10/22 07:38 Total Bilirubin 0.2 mg/dL (0.15-1.2) 12/10/22 07:38 AST 11 U/L (0-40) 12/10/22 07:38 ALT 14 U/L (0-41) 12/10/22 07:38 Alkaline Phosphatase 81 U/L (40-130) 12/10/22 07:38 Troponin T Baseline < 6 ng/L (0-15) 12/10/22 07:38 Troponin T 120 Minute 6.05 ng/L (0-15) 12/10/22 09:30 Delta Troponin T 0.05 ABS# (0-10) 12/10/22 09:30 Total Protein 5.9 g/dL (6.6-8.7) L 12/10/22 07:38 Albumin 3.5 g/dL (3.5-5.2) 12/10/22 07:38 Globulin 2.4 g/dL (1.3-4.6) 12/10/22 07:38 Urine Color Yellow (Yellow) 12/10/22 10:00 Urine Appearance Clear (CLEAR) 12/10/22 10:00 Urine pH 6 (5-7) 12/10/22 10:00 Ur Specific [place] 1.005 (1.005-1.030) 12/10/22 10:00 Urine Protein Neg (Negative) 12/10/22 10:00 Urine Glucose (UA) Norm (Normal) 12/10/22 10:00 Urine Ketones Negative (Negative) 12/10/22 10:00 Urine Blood Neg (Negative) 12/10/22 10:00 Urine Nitrate Negative (Negative) 12/10/22 10:00 Urine Bilirubin Neg (Negative) 12/10/22 10:00 Urine Urobilinogen Norm mg/dL (Negative) 12/10/22 10:00 Ur Leukocyte Esterase Negative (Negative) 12/10/22 10:00 Coronavirus 229E (PCR) Not detected (NOT DETECT) 12/10/22 08:38 Influenza Type A Ag negative (Negative) 12/10/22 08:38 Influenza Type B Ag negative (Negative) 12/10/22 08:38 SARS-CoV-2 (PCR) Not detected (NOT DETECT) 12/10/22 08:38 All radiology interpretation(s) finalized by discharge Discharge Plan Discharge Patient Disposition: Transfer to ED Clinical Impression: Postobstructive pneumonia, Primary adenocarcinoma of upper lobe of left lung Condition: Stable Prescriptions: No Action ondansetron HCl 4 mg tablet 4 mg PO Q8H Zyrtec 10 mg capsule 10 mg PO DAILY PRN (Reason: Allergy Symptoms) lorazepam 1 mg tablet 0.5 - 1 mg PO TID PRN (Reason: nausea and vomiting) Qty: 30 1RF levofloxacin 750 mg tablet 750 mg PO DAILY Qty: 7 0RF doxycycline hyclate 100 mg tablet 100 mg PO BID 10 Days Qty: 20 0RF sotorasib 120 mg tablet 960 mg PO DAILY Qty: 240 12RF oxycodone 5 mg/5 mL solution 5 mg PO Q4H PRN (Reason: pain) 10 Days Qty: 200 0RF prednisone 20 mg tablet 20 mg PO BID Qty: 30 1RF acetaminophen [Tylenol Ex Str Rapid Release] 500 mg Tablet 1,000 mg PO Q6H PRN (Reason: Pain) Referrals: Ana Luisa Agarwal FNP [Primary Care Provider] - Coding Level of Care Code ED Center Punch Operator for Eud Mg
[2022-12-10 07:53] LABS: Basophils % 0.4 %; Eosinophils # 0.1 10^3/uL (0.0-0.8); Eosinophils % 0.5 %; Hematocrit 42.3 % (37-53); Lymphocytes # 0.6 10^3/uL (0.8-4.8); Lymphocytes % 6.7 %; Mean Corpuscular HGB Conc 32.6 g/dL (30-55); Mean Corpuscular Hemoglobin 31.4 pg (27-33); Mean Corpuscular Volume 96.1 fl (82-101); Mean Platelet Volume 9.2 fL (7.4-10.4); Monocytes # 0.8 10^3/uL (0.2-0.9); Monocytes % 8.9 %; Neutrophils # 7.73 10^3/uL (1.8-7.7); Nucleated Red Blood Cells % 0 %; Platelet Count 226 10^3/cmm (157-399); Red Cell Distribution Width 13.2 % (12.1-15.1); White Blood Count 9.32 10^3/uL (3.29-11.43)
[2022-12-10 08:11] LABS: Lactic Sepsis W/Reflex 1.7 mmol/L (0.5-2.2)
[2022-12-10 08:13] LABS: Alanine Aminotransferase 14 U/L (0-41); Albumin Level 3.5 g/dL (3.5-5.2); Alkaline Phosphatase 81 U/L (40-130); Anion Gap 15.5 (5-19); Aspartate Amino Transferase 11 U/L (0-40); Blood Urea Nitrogen 10 mg/dL (6-20); Calcium 8.9 mg/dL (8.5-10.5); Carbon Dioxide 24 mmol/L (22-29); Chloride 98 mmol/L (98-107); Globulin 2.4 g/dL (1.3-4.6); Glomerular Filtration Rate 117.1 mL/min (90-130); Glucose 128 mg/dL (65-115); Osmolality Calculated 279 mOsm/kg (285-295); Potassium 3.5 mmol/L (3.5-5.1); Sodium 134 mmol/L (136-145); Total Bilirubin 0.2 mg/dL (0.15-1.2); Total Protein 5.9 g/dL (6.6-8.7); Troponin(5th) Baseline < 6 ng/L (0-15)
[2022-12-10] MEDS: sodium chloride 0.9% 1,000 ML 999 ML IV ×2 (08:37→11:39)
[2022-12-10 09:26] LABS: Influenza A by IFA negative (Negative); Influenza B by IFA negative (Negative)
[2022-12-10] MEDS: piperacillin-tazobactam 3.375 GM in sodium chloride 0.9% (plus) 50 ML IV (09:40)
--- NOTE | 2022-12-10 09:42 | ECG_ITS ---
[facility] Test Date: 2022-12-10 Pat Name: Billy Capone Department: Room: Gender: Male Storage Receipt Poster: : 1965 Requested By: Elfego Alvarez Order Number: [id number] Luci MD: Oracio Tidwell M.D. Measurements Intervals [place] Rate: 104 P: 72 LA: 158 QRS: 98 QRSD: 88 T: 66 QT: 314 QTc: 414 Interpretive Statements SINUS TACHYCARDIA BORDERLINE RIGHT AXIS DEVIATION [QRS AXIS > 90] MODERATE ST DEPRESSION [0.05+ mV ST DEPRESSION] Compared to ECG 12/10/2022 07:22:55 No significant changes Electronically Signed On 12-10-2022 12:31:43 CDT by Oracio Tidwell M.D. [email or web address] centerQuinticthe [facility].[employer]/store/OM/[id number]
[2022-12-10 09:55] LABS: Troponin 5 2HR 6.05 ng/L (0-15); Troponin 5 2HR Delta 0.05 ABS# (0-10)
[2022-12-10] MEDS: acetaminophen 500 mg Tablet 1000 MG PO (10:01)
[2022-12-10 10:13] LABS: Add Urine Microscopic? NO; Charge for UA Resulting for Rev
[2022-12-10 10:17] LABS: Urine Appearance Clear (CLEAR); Urine Color Yellow (Yellow)
[2022-12-10 10:18] LABS: Bilirubin Urine Neg (Negative); Blood Urine Neg (Negative); Glucose Urine UA Norm (Normal); Ketones Urine Negative (Negative); Leukocyte Esterase Urine Negative (Negative); Nitrate Urine Negative (Negative); Protein Urine Neg (Negative); Specific Gravity, Urine 1.005 (1.005-1.030); Urobilinogen Urine Norm (Negative); pH Urine 6 (5-7)
[2022-12-10] MEDS: vancomycin 1,000 MG in sodium chloride 0.9% 250 ML 250 MG IV (10:38)
[2022-12-10 10:51] LABS: Adenovirus Not Detected (NOT DETECT); Chlamydia Pneumoniae Not Detected (NOT DETECT); Coronavirus 229E,HKU1,NL63,OC4 Not Detected (NOT DETECT); Human Metapneumovirus Not Detected (NOT DETECT); Human Rhinovirus/Enterovirus Not Detected (NOT DETECT); Influenza A Not Detected (NOT DETECT); Influenza A H1 Not Detected (NOT DETECT); Influenza A H1-2009 Not Detected (NOT DETECT); Influenza A H3 Not Detected (NOT DETECT); Influenza B Not Detected (NOT DETECT); Mycoplasma Pneumoniae Not Detected (NOT DETECT); Parainfluenza Virus Type 1 Not Detected (NOT DETECT); Parainfluenza Virus Type 2 Not Detected (NOT DETECT); Parainfluenza Virus Type 3 Not Detected (NOT DETECT); Parainfluenza Virus Type 4 Not Detected (NOT DETECT); Respiratory Syncytial Virus A Not Detected (NOT DETECT); Respiratory Syncytial Virus B Not Detected (NOT DETECT); SARS-COV-2 Not Detected (NOT DETECT)
== END 2022-12-10 12:30 ==
PROVIDERS: Emergency Provider Family Medicine; PCP Nurse Practitioner
DX: J18.8 Other pneumonia, unspecified organism (principal); C34.12 Malignant neoplasm of upper lobe, left bronchus or lung; Z11.52 Encounter for screening for COVID-19; Z87.891 Personal history of nicotine dependence
CPT/HCPCS: 36415; 71045; 80053; 81003; 83605; 84484; 85025; 87040; 87635; 87804; 93005; 96365; 96375; 99285; J2543; J3370; J7030; J7050

== ENCOUNTER 2022-12-17 09:52 | Oncology outpatient (recurring) (ONCR) | payer OTHER, SELFPAY ==
[2022-12-09 11:35] VITALS: BMI 25.6
[2022-12-09 11:36] VITALS: BP 94/63; PULSE 100; RESP 17; TEMP 37.3; O2SAT 85
[2022-12-09 12:00] LABS: Basophils % 0.2 %; Eosinophils % 0.1 %; Lymphocytes # 0.4 10^3/uL (0.8-4.8); Lymphocytes % 2.7 %; Mean Corpuscular HGB Conc 33.1 g/dL (30-55); Mean Corpuscular Hemoglobin 31.7 pg (27-33); Mean Corpuscular Volume 95.9 fl (82-101); Mean Platelet Volume 9.5 fL (7.4-10.4); Monocytes # 0.6 10^3/uL (0.2-0.9); Monocytes % 4.4 %; Neutrophils # 12.72 10^3/uL (1.8-7.7); Neutrophils % 92.2 %; Nucleated Red Blood Cells % 0 %; Platelet Count 278 10^3/cmm (157-399); Red Blood Count 4.38 10^6/uL (3.85-5.65)
[2022-12-09 12:16] LABS: Alanine Aminotransferase 14 U/L (0-41); Albumin Level 3.5 g/dL (3.5-5.2); Alkaline Phosphatase 82 U/L (40-130); Anion Gap 13.1 (5-19); Aspartate Amino Transferase 11 U/L (0-40); Blood Urea Nitrogen 12 mg/dL (6-20); Calcium 9.5 mg/dL (8.5-10.5); Carbon Dioxide 28 mmol/L (22-29); Chloride 98 mmol/L (98-107); Globulin 3.4 g/dL (1.3-4.6); Glomerular Filtration Rate 117.1 mL/min (90-130); Glucose 125 mg/dL (65-115); Osmolality Calculated 281 mOsm/kg (285-295); Potassium 4.1 mmol/L (3.5-5.1); Sodium 135 mmol/L (136-145); Total Bilirubin 0.2 mg/dL (0.15-1.2); Total Protein 6.9 g/dL (6.6-8.7)
[2022-12-17 10:10] VITALS: BP 109/75; PULSE 103; RESP 16; TEMP 37.6; O2SAT 93
[2022-12-17 10:16] LABS: Basophils # 0.1 10^3/uL (0.0-0.1); Basophils % 0.4 %; Eosinophils # 0.2 10^3/uL (0.0-0.8); Eosinophils % 1.3 %; Hematocrit 41.6 % (37-53); Lymphocytes # 0.6 10^3/uL (0.8-4.8); Mean Corpuscular HGB Conc 32.7 g/dL (30-55); Mean Corpuscular Hemoglobin 31.5 pg (27-33); Mean Corpuscular Volume 96.3 fl (82-101); Mean Platelet Volume 9.1 fL (7.4-10.4); Monocytes # 0.7 10^3/uL (0.2-0.9); Monocytes % 5.8 %; Neutrophils # 10.18 10^3/uL (1.8-7.7); Nucleated Red Blood Cells % 0 %; Platelet Count 377 10^3/cmm (157-399); Red Blood Count 4.32 10^6/uL (3.85-5.65); Red Cell Distribution Width 12.9 % (12.1-15.1); White Blood Count 11.71 10^3/uL (3.29-11.43)
[2022-12-17 10:37] LABS: Alanine Aminotransferase 18 U/L (0-41); Albumin Level 3.3 g/dL (3.5-5.2); Alkaline Phosphatase 93 U/L (40-130); Anion Gap 15.2 (5-19); Aspartate Amino Transferase 13 U/L (0-40); Blood Urea Nitrogen 10 mg/dL (6-20); Calcium 8.9 mg/dL (8.5-10.5); Carbon Dioxide 25 mmol/L (22-29); Chloride 100 mmol/L (98-107); Globulin 3.5 g/dL (1.3-4.6); Glomerular Filtration Rate 100.4 mL/min (90-130); Glucose 158 mg/dL (65-115); Osmolality Calculated 284 mOsm/kg (285-295); Potassium 4.2 mmol/L (3.5-5.1); Sodium 136 mmol/L (136-145); Total Bilirubin 0.4 mg/dL (0.15-1.2); Total Protein 6.8 g/dL (6.6-8.7)
== END 2023-01-06 23:59 | disposition home or self-care (01) ==
PROVIDERS: Nurse Practitioner Family; PCP Nurse Practitioner; Visit Provider Internal Medicine Medical Oncology
DX: Z51.0 Encounter for antineoplastic radiation therapy (principal); C34.82 Malignant neoplasm of overlapping sites of left bronchus and lung; Z51.12 Encounter for antineoplastic immunotherapy; C34.12 Malignant neoplasm of upper lobe, left bronchus or lung; C34.92 Malignant neoplasm of unspecified part of left bronchus or lung
CPT/HCPCS: 36591; 80053; 85025; 99214; J1642

== ENCOUNTER 2023-07-05 11:16 | Inpatient (IN) | payer OTHER, SELFPAY ==
[2023-07-05] VITALS (35 sets, daily range): BP systolic 85–136; BP diastolic 41–85; PULSE 108–129; RESP 7–27; TEMP 36.9–37.4; O2SAT 93–98; BMI 22.9
--- NOTE | 2023-07-05 11:30 | ECG_ITS ---
[facility] Test Date: 2023-07-05 Pat Name: Billy Capone Department: Room: Gender: Male Production Clerk: : [id number] Requested By: Joni Moreno Order Number: [id number] Luci MD: Oracio Tidwell M.D. Measurements Intervals [place] Rate: 129 P: 74 MO: 141 QRS: 102 QRSD: 88 T: 65 QT: 270 QTc: 396 Interpretive Statements SINUS TACHYCARDIA RIGHT AXIS DEVIATION [QRS AXIS > 100] MODERATE ST DEPRESSION [0.05+ mV ST DEPRESSION] Compared to ECG 12/10/2022 09:42:21 No significant changes Electronically Signed On 07-05-2023 16:49:00 CDT by Oracio Tidwell M.D. [email or web address].[employer]/store/NU/[id number] f
--- NOTE | 2023-07-05 11:30 | XR_ITS ---
WS: [id number] Exam: XR chest 1V portable [id number] Date/Time of Exam: 07/05/2023 11:32 AM Reason For Exam: Chest pain Comparison 11/09/2022. There is almost total whiteout of the LEFT lung field with only a small portion of ventilated lung pa renchyma in the LEFT upper lobe. There are numerous nodules and masses identified throughout the RIGH T lung. There are some areas of consolidation in the mid and lower RIGHT lung that may represent pulm onary masses versus pneumonic infiltrate. A left-sided Port-A-Cath is noted ending in the distal one third of the SVC. No pneumothorax seen. The LEFT cardiac silhouette is completely obscured. Bony stru ctures are intact. XR/XR chest 1V portable [id number] IMPRESSION: 1. Almost complete white out of the LEFT pleural cavity. This could represent c omplete consolidation of the LEFT lung and/or atelectasis or perhaps fluid-fill ed LEFT pleural cavity. 2. Numerous pulmonary nodules and masses identified throughout the RIGHT lung. There are some areas of consolidation in the mid and lower RIGHT lung that may represent large masses or areas of pneumonic consolidation. 3. Left-sided Port-A-Cath appearing to be in satisfactory location.
[2023-07-05 12:05] LABS: Basophils # 0.1 10^3/uL (0.0-0.1); Basophils % 5.3 %; Eosinophils % 1.1 %; Hematocrit 31.9 % (37-53); Lymphocytes # 0.1 10^3/uL (0.8-4.8); Lymphocytes % 11.7 %; Mean Corpuscular HGB Conc 31.7 g/dL (30-55); Mean Corpuscular Hemoglobin 30.4 pg (27-33); Mean Corpuscular Volume 96.1 fl (82-101); Mean Platelet Volume 10.2 fL (7.4-10.4); Monocytes # 0.1 10^3/uL (0.2-0.9); Monocytes % 11.7 %; Neutrophils % 69.1 %; Nucleated Red Blood Cells % 0 %; Platelet Count 196 10^3/cmm (157-399); Red Blood Count 3.32 10^6/uL (3.85-5.65); Red Cell Distribution Width 13.8 % (12.1-15.1)
--- NOTE | 2023-07-05 12:06 | PC.PHAR ---
MEDICATION VERIFICATION FROM PT AND SPOUSE-[facility]. 07/05/23 11:59AM
--- NOTE | 2023-07-05 12:08 | PC.PHAR ---
PT IS [facility]
[2023-07-05 12:21] LABS: D Dimer 1.67 ug/mLFEU (0-0.59)
[2023-07-05 12:23] LABS: Neutrophils # 0.65 10^3/uL (1.8-7.7)
[2023-07-05 12:24] LABS: White Blood Count 0.94 10^3/uL (3.29-11.43)
[2023-07-05 12:25] LABS: Slide Review Slide Review Perform; Troponin(5th) Baseline 16 ng/L (0-15)
[2023-07-05 12:29] LABS: Lactic Sepsis W/Reflex 2.5 mmol/L (0.5-2.2)
[2023-07-05 12:40] LABS: Alanine Aminotransferase 30 U/L (0-41); Albumin Level 3.1 g/dL (3.5-5.2); Alkaline Phosphatase 153 U/L (40-130); Anion Gap 16.4 (5-19); Aspartate Amino Transferase 30 U/L (0-40); Blood Urea Nitrogen 13 mg/dL (6-20); Carbon Dioxide 28 mmol/L (22-29); Chloride 95 mmol/L (98-107); Creatinine Clr Calc Pharmacy 143.2998; Globulin 3.4 g/dL (1.3-4.6); Glomerular Filtration Rate 139.9 mL/min (90-130); Glucose 136 mg/dL (65-115); NT Pro B Type Natriuretic Pept 864 pg/mL (0-125); Osmolality Calculated 282 mOsm/kg (285-295); Potassium 4.4 mmol/L (3.5-5.1); Sodium 135 mmol/L (136-145); Total Bilirubin 0.6 mg/dL (0.15-1.2); Total Protein 6.5 g/dL (6.6-8.7)
[2023-07-05] MEDS: sodium chloride 0.9% 1,000 ML 999 ML IV (13:01)
[2023-07-05 13:07] LABS: Amphetamines Screen Urine Negative (Negative); Barbiturates Screen Urine Negative (Negative); Benzodiazepines Screen Urine Negative (Negative); Cocaine Screen Urine Negative (Negative); Opiate Screen Urine Positive (Negative); PCP Screen Urine Negative (Negative); THC Screen Urine Negative (Negative)
[2023-07-05 13:15] LABS: Add Urine Microscopic? YES; Bacteria Urine TRACE /hpf; Bilirubin Urine Neg (Negative); Blood Urine 2+ (Negative); Glucose Urine UA Norm (Normal); Ketones Urine 1+ (Negative); Leukocyte Esterase Urine Trace (Negative); Nitrate Urine Negative (Negative); Protein Urine 1+ (Negative); RBC Urine 0-4 /hpf (0-2); Squamous Epithelial Cell Urine 0-4 /hpf (0-5); Urine Appearance Clear (CLEAR); Urine Color Yellow (Yellow); Urobilinogen Urine 1 mg/dL (Negative); WBC Urine 0-4 /hpf (0-5); pH Urine 5 (5-7)
--- NOTE | 2023-07-05 13:15 | W.ED.CHESTPA ---
HPI - Chest Pain General: Chief Complaint: Chest Pain Stated Complaint: Chest Pain Time Seen by Provider: 07/05/23 11:28 Source: patient and family Mode of arrival: ambulatory Limitations: no limitations History of Present Illness: Patient was recently at [facility] for pneumonia was on Zosyn in the hospital and discharged home on Levaquin p.o. His last chemo treatment was 6 days ago Docetaxol and Ricarumimab. He is having increased shortness of breath and requiring 2 L O2. Does not typically require any O2. He is on the chemotherapy for lung cancer. He reports a productive cough with thick sputum feeling miserable all over. Reports fever of 101 at home. Review of Systems General: Reports: 10 or more systems reviewed and unremarkable except in HPI and below PFSH ED PFSH: Medical History Degenerative joint disease of spine Non-small cell lung cancer Surgical History History of removal of Port-a-Cath History of testicular surgery double testicular torsion with hernia repair History of lumbar surgery x3 History of esophagogastroduodenoscopy (EGD) 2009 Hx of colonoscopy with polypectomy 2009 Family History Grandfather Cancer Grandmother Dementia Father Hypertension Other Anesthesia complication Diabetes Hyperlipidemia Denies family history of CAD (coronary artery disease) Clotting disorder Psychiatric illness Chronic kidney disease (CKD) Suicide Bleeding disorder Lung disease Stroke Social History Quit status (tobacco/nicotine): has quit using Year quit tobacco: September 2022 Former quit date comment: quit 2 weeks prior, smoked prior for 40 years Alcohol intake: current Alcohol intake frequency: holidays/special occasions only Physical Exam Const: COMMON NORMALS: no acute distress, average body habitus, patient oriented x3, healthy appearing, alert and well nourished GENERAL APPEARANCE: well kempt, well developed, ill appearing and appears older than stated age HENMT: COMMON NORMALS: normocephalic, atraumatic, external ears normal and moist oral mucous membranes HEAD & SCALP: normocephalic and atraumatic EXTERNAL EAR: Yes external ears normal Eye: COMMON NORMALS: Equal, round and reactive pupils present, EOMs intact bilaterally and conjunctivae normal CONJUNCTIVA: Yes conjunctivae normal PUPIL: Yes Equal, round and reactive pupils present Neck/C-Spine: COMMON NORMALS: full ROM, no lymphadenopathy and supple Chest: CHEST: Yes Symmetrical chest wall rise and No Surgical scars present (Chest) Resp: COMMON NORMALS: No retractions EFFORT & INSPECTION: Yes able to speak in complete sentences, Yes symmetric chest movement, No respiratory distress, Yes uses accessory muscles and No tracheal deviation AUSCULTATION: rhonchi (Scattered bilateral) OTHER: Diminished sounds on left Cardio: COMMON NORMALS: regular rate, regular rhythm, S1 normal heart sound present, S2 normal heart sound present, No gallops present (Cardio), No clicks present (Cardio), No murmurs present (Cardio) and No rub (Cardio) RATE: regular rate and tachycardic RHYTHM: regular rhythm HEART SOUNDS: S1 normal heart sound present, S2 normal heart sound present and no murmurs PERIPHERAL PULSES: other (Radial pulses 2+ and symmetric) GI: COMMON NORMALS: Soft to palpation, non-tender and no masses INSPECTION: No abdominal distension PALPATION: Yes Soft to palpation, No Guarding due to palpation present (GI) and No Rebound tenderness present : COMMON NORMALS: Yes no CVA tenderness BLADDER/KIDNEY EXAM: Yes no CVA tenderness Back/Pelvis: COMMON NORMALS: no CVA tenderness Extremity: COMMON NORMALS: normal to inspection, full ROM, capillary refill normal and no clubbing, cyanosis or edema Neuro: COMMON NORMALS: patient oriented x3 SENSORIUM/ORIENTATION: Yes alert Psych: APPEARANCE: Yes well kempt Skin: COMMON NORMALS: no rashes or lesions noted, no wounds, turgor normal and no jaundice GENERAL SKIN EXAM: no rashes or lesions noted and turgor normal Course Vital Signs: Vital signs: Vital Signs Temperature 99.2 F 07/05/23 17:30 Pulse Rate 120 H 07/05/23 17:36 Respiratory Rate 24 H 07/05/23 21:37 Blood Pressure 113/66 07/05/23 17:30 Pulse Oximetry 95 07/05/23 21:37 Oxygen Delivery Me thod Nasal Cannula 07/05/23 17:36 Oxygen Flow Rate 3 07/05/23 17:36 MDM - Chest Pain Medical Decision Making Patient currently going treatment for cancer. Was recently admitted to the hospital for pneumonia as well. He is 6 days post his last treatment of chemotherapy. On labs he was found to be severely neutropenic with a total white count of 0.94. I did place an outside call to his heme-onc clinic at the [facility] and they report that he has not had Neupogen. We did also fax his current blood work to them for an update. Started patient on Neupogen and will admit to the hospital for neutropenic fever and severe sepsis. Medical Records I reviewed the patient's medical records. Lab Data I reviewed the patient's lab results. 07/05/23 11:50 07/05/23 11:50 Radiology Impressions Chest X-Ray 07/05/23 11:30 IMPRESSION: 1. Almost complete white out of the LEFT pleural cavity. This could represent complete consolidation of the LEFT lung and/or atelectasis or perhaps fluid-filled LEFT pleural cavity. 2. Numerous pulmonary nodules and masses identified throughout the RIGHT lung. There are some areas of consolidation in the mid and lower RIGHT lung that may represent large masses or areas of pneumonic consolidation. 3. Left-sided Port-A-Cath appearing to be in satisfactory location. Abdomen/Pelvis CT 07/05/23 19:05 IMPRESSION: 1. Multifocal metastatic disease throughout the right lower lobe. 2. Left lung diffuse airspace opacification incompletely visualized. 3. Small right pleural effusion. 4. Small amount of fluid in the pelvis nonspecific. 5. Lumbar spine surgical hardware. 6. Constipation. Chest CTA 07/05/23 19:05 IMPRESSION: 1. Negative for pulmonary embolus. 2. Right lung diffuse metastatic disease. 3. Left lung diffuse opacification may reflect diffuse metastatic infiltration. 4. Scattered enlarged mediastinal and right hilar adenopathy measuring 2.3 cm in the right hilar region, suggestive of metastatic disease. 5. Small right pleural effusion. 6. Patchy right lung field airspace opacities may reflect associated pneumonic infiltrates. Laboratory Results WBC 0.94 10^3/uL (3.29-11.43) L* 07/05/23 11:50 RBC 3.32 10^6/uL (3.85-5.65) L 07/05/23 11:50 Hgb 10.10 g/dL (11.27-16.99) L 07/05/23 11:50 Hct 31.9 % (37-53) L 07/05/23 11:50 MCV 96.1 fl (82-101) 07/05/23 11:50 MCH 30.4 pg (27-33) 07/05/23 11:50 MCHC 31.7 g/dL (30-55) 07/05/23 11:50 RDW 13.8 % (12.1-15.1) 07/05/23 11:50 Plt Count 196 10^3/cmm (157-399) 07/05/23 11:50 MPV 10.2 fL (7.4-10.4) 07/05/23 11:50 Neut % (Auto) 69.1 % 07/05/23 11:50 Lymph % (Auto) 11.7 % 07/05/23 11:50 [place] % (Auto) 11.7 % 07/05/23 11:50 Eos % (Auto) 1.1 % 07/05/23 11:50 Baso % (Auto) 5.3 % 07/05/23 11:50 Neut # (Auto) 0.65 10^3/uL (1.8-7.7) L* 07/05/23 11:50 Lymph # (Auto) 0.1 10^3/uL (0.8-4.8) L 07/05/23 11:50 [place] # (Auto) 0.1 10^3/uL (0.2-0.9) L 07/05/23 11:50 Eos # (Auto) 0.0 10^3/uL (0.0-0.8) 07/05/23 11:50 Baso # (Auto) 0.1 10^3/uL (0.0-0.1) 07/05/23 11:50 Nucleated RBC % (auto) 0 % 07/05/23 11:50 Nucleated RBCs # 0.0 /100WBC 07/05/23 11:50 D-Dimer 1.67 ug/mLFEU (0-0.59) H 07/05/23 11:50 Sodium 135 mmol/L (136-145) L 07/05/23 11:50 Potassium 4.4 mmol/L (3.5-5.1) 07/05/23 11:50 Chloride 95 mmol/L (98-107) L 07/05/23 11:50 Carbon Dioxide 28 mmol/L (22-29) 07/05/23 11:50 Anion Gap 16.4 (5-19) 07/05/23 11:50 BUN 13 mg/dL (6-20) 07/05/23 11:50 Creatinine 0.6 mg/dL (0.7-1.2) L 07/05/23 11:50 GFR Calculation 139.9 mL/min (90-130) H 07/05/23 11:50 Glucose 136 mg/dL (65-115) H 07/05/23 11:50 Calculated Osmolality 282 mOsm/kg (285-295) L 07/05/23 11:50 Lactic Acid 2.5 mmol/L (0.5-2.2) H 07/05/23 11:35 Lactic Acid (Sepsis) 1.5 mmol/L (0.5-2.2) 07/05/23 15:11 Calcium 9.0 mg/dL (8.5-10.5) 07/05/23 11:50 Total Bilirubin 0.6 mg/dL (0.15-1.2) 07/05/23 11:50 AST 30 U/L (0-40) 07/05/23 11:50 ALT 30 U/L (0-41) 07/05/23 11:50 Alkaline Phosphatase 153 U/L (40-130) H 07/05/23 11:50 Troponin T Baseline 16 ng/L (0-15) H 07/05/23 11:50 Troponin T 120 Minute 15.43 ng/L (0-15) H 07/05/23 13:42 Delta Troponin T -0.57 ABS# (0-10) L 07/05/23 13:42 NT-Pro-B Natriuret Pep 864 pg/mL (0-125) H 07/05/23 11:50 Total Protein 6.5 g/dL (6.6-8.7) L 07/05/23 11:50 Albumin 3.1 g/dL (3.5-5.2) L 07/05/23 11:50 Globulin 3.4 g/dL (1.3-4.6) 07/05/23 11:50 Procalcitonin > 100.00 ng/mL (0-0.5) H 07/05/23 11:35 Urine Color Yellow (Yellow) 07/05/23 12:46 Urine Appearance Clear (CLEAR) 07/05/23 12:46 Urine pH 5 (5-7) 07/05/23 12:46 Ur Specific [place] 1.020 (1.005-1.030) 07/05/23 12:46 Urine Protein 1+ (Negative) H 07/05/23 12:46 Urine Glucose (UA) Norm (Normal) 07/05/23 12:46 Urine Ketones 1+ (Negative) H 07/05/23 12:46 Urine Blood 2+ (Negative) H 07/05/23 12:46 Urine Nitrate Negative (Negative) 07/05/23 12:46 Urine Bilirubin Neg (Negative) 07/05/23 12:46 Urine Urobilinogen 1 mg/dL (Negative) H 07/05/23 12:46 Ur Leukocyte Esterase Trace (Negative) H 07/05/23 12:46 Urine RBC 0-4 /hpf (0-2) H 07/05/23 12:46 Urine WBC 0-4 /hpf (0-5) H 07/05/23 12:46 Ur Squamous Epith Cells 0-4 /hpf (0-5) H 07/05/23 12:46 Amorphous Sediment Not Reportable 07/05/23 12:46 Urine Bacteria Trace /hpf (NONE) 07/05/23 12:46 Urine Opiates Screen Positive ng/mL (Negative) H 07/05/23 12:46 Ur Barbiturates Screen Negative ng/mL (Negative) 07/05/23 12:46 Ur Phencyclidine Scrn Negative ng/mL (Negative) 07/05/23 12:46 Ur Amphetamines Screen Negative ng/mL (Negative) 07/05/23 12:46 U Benzodiazepines Scrn Negative ng/mL (Negative) 07/05/23 12:46 Urine Cocaine Screen Negative ng/mL (Negative) 07/05/23 12:46 U Marijuana (THC) Screen Negative ng/mL (Negative) 07/05/23 12:46 All radiology interpretation(s) finalized by discharge ED provider radiology interpretation(s): X-ray with left-sided whiteout and various areas of metastatic disease. Discharge Plan Discharge Patient Disposition: Admitted As Inpatient Admit Provider: Marlene Lopes Clinical Impression: Neutropenia with fever, Sepsis Condition: Stable Coding Level of Care Code ED Pipe Smoking Machine Offbearer for Edu Mg
--- NOTE | 2023-07-05 13:30 | ECG_ITS ---
[facility] Test Date: 2023-07-05 Pat Name: Billy Capone Department: Room: Gender: Male Audio Experience Expert: : 1965 Requested By: Joni Moreno Order Number: [id number] Luci MD: Oracio Tidwell M.D. Measurements Intervals [place] Rate: 119 P: 61 MD: 150 QRS: 90 QRSD: 87 T: 55 QT: 296 QTc: 417 Interpretive Statements SINUS TACHYCARDIA POSSIBLE LEFT ATRIAL ENLARGEMENT [-0.1mV P-WAVE IN V1/V2] Compared to ECG 07/05/2023 11:18:12 Right-axis deviation no longer present ST (T wave) deviation no longer present Electronically Signed On 07-05-2023 16:51:27 CDT by Oracio Tidwell M.D. [email or web address])lac[facility] memorial hospitalIdeaForestadena pike medical center.[employer]/store/OM/[id number]
[2023-07-05] MEDS: piperacillin-tazobactam 3.375 GM in sodium chloride 0.9% (plus) 50 ML IV (13:35)
[2023-07-05 13:58] LABS: Procalcitonin > 100.00 ng/mL (0-0.5)
[2023-07-05 14:00] LABS: Reflex Lactate Order REFLEX LACTIC ORDERD
[2023-07-05] MEDS: ondansetron 2 mg/ML SDV 2 mL 4 MG IVP (14:06)
[2023-07-05 14:08] LABS: Troponin 5 2HR 15.43 ng/L (0-15)
[2023-07-05] MEDS: HYDROmorphone 1 mg/mL INJ 1 mL 0.5 MG IVP ×2 (14:10→16:36)
[2023-07-05 14:15] LABS: Troponin 5 2HR Delta -0.57 ABS# (0-10)
[2023-07-05] MEDS: vancomycin 1,000 MG in sodium chloride 0.9% 250 ML 250 MG IV (14:17)
[2023-07-05 15:34] LABS: Lactic Acid level (Lactate) 1.5 mmol/L (0.5-2.2)
--- NOTE | 2023-07-05 16:24 | PC.NURSE ---
PER VERBAL ORDER FROM DR. HINKLE, DILAUDID 0.5 MG ONCE AND TYLENOL 1000 MG ONCE.
--- NOTE | 2023-07-05 16:34 | PM.HP ---
Providers/Chief Complaint Primary Care Provider: KELBY Eugene Chief Complaint: Chest Pain History of Present Illness Billy Capone is a 57 year old male, with history of stage IVb lung cancer adenocarcinoma hyponatremia, status post chemoradiation therapy currently on a new chemotherapeutic agent got first cycle of Docetaxol and Ricarumimab ,, Was recently discharged from [facility] after management of pneumonia where he was given Zosyn for 4 days, patient is not sure what was in his sputum blood culture he was not told about the results, at home he has been spiking fever up to 101-102, associated with right lower quadrant pain and diarrhea. Patient has not noticed any vomiting but endorsing nausea. Patient has lost 20 pounds in last few months. He uses 2 L of oxygen only at nighttime, no headache signs of meningitis, no skin ulcers. He has been noticing right upper quadrant pain more than right lower quadrant. In the ER he has been diagnosed with bone marrow suppressive neutropenic fever he has been given antibiotics, sputum and blood culture requested, at the time of evaluation patient is tachycardic sinus tachycardia I requested CTA chest rule out PE and requested CT abdomen pelvis: Gallbladder ultrasound, Patient has been giving filgrastim, antibiotics along 2 L of IV fluids Review of Systems Const: Reports: fever(s), chills and change in weight Eyes: Denies: change in vision ENMT: Denies: throat pain Card: Denies: chest pain Resp: Reports: dyspnea GI: Denies: abdominal pain : Denies: flank pain Musc: Denies: neck pain Skin/Breast: Denies: rash Neuro: Denies: headache(s) Psych: Reports: anxiety Medications/Allergies Home Medications Medication Instructions Recorded Confirmed Last Taken Type acetaminophen 500 mg tablet 1,000 mg PO Q6H PRN Pain 06/29/22 07/05/23 12/10/22 History cetirizine 10 mg capsule (Zyrtec) 10 mg PO DAILY PRN Allergy Symptoms 09/13/22 07/05/23 09/14/22 06:00 History ondansetron HCl 4 mg tablet 4 mg PO Q8H nausea #30 tabs 12/17/22 07/05/23 Unknown Rx levofloxacin 750 mg tablet 750 mg PO DAILY 07/05/23 07/05/23 07/05/23 History lidocaine 5 % topical patch 1 patch topical DAILY 07/05/23 07/05/23 Unknown History morphine 15 mg immediate release 7.5 mg PO Q6H PRN Pain 07/05/23 07/05/23 07/05/23 History tablet prednisone 5 mg tablet 10 mg PO DAILY 07/05/23 07/05/23 07/04/23 History promethazine 25 mg tablet 25 mg PO Q8H PRN Nausea 07/05/23 07/05/23 Unknown History Allergies Allergy/AdvReac Type Severity Reaction Status Date / Time almond Allergy ALGY-Anaphy Verified 12/17/22 10:18 laxis durvalumab [From Imfinzi] Allergy shaking Verified 12/17/22 10:18 Iodinated Contrast Media Allergy ALGY-Difficulty Verified 12/17/22 10:18 Swallowing PFSH Acute PFSH: Medical History Degenerative joint disease of spine Non-small cell lung cancer Surgical History History of removal of Port-a-Cath History of testicular surgery double testicular torsion with hernia repair History of lumbar surgery x3 History of esophagogastroduodenoscopy (EGD) 2009 Hx of colonoscopy with polypectomy 2009 Family History Grandfather Cancer Grandmother Dementia Father Hypertension Other Anesthesia complication Diabetes Hyperlipidemia Denies family history of CAD (coronary artery disease) Clotting disorder Psychiatric illness Chronic kidney disease (CKD) Suicide Bleeding disorder Lung disease Stroke Social History Quit status (tobacco/nicotine): has quit using Year quit tobacco: September 2022 Former quit date comment: quit 2 weeks prior, smoked prior for 40 years Alcohol intake: current Alcohol intake frequency: holidays/special occasions only Vitals/I&O/Wt Last Vital Signs Temp 98.4 F 07/05/23 11:25 Pulse 122 H 07/05/23 15:18 Resp 16 07/05/23 14:10 BP 136/85 07/05/23 15:18 Pulse Ox 94 07/05/23 15:18 O2 Del Method Room Air 07/05/23 15:18 O2 Flow Rate 2 07/05/23 13:06 07/05/23 07/05/23 07/05/23 06:59 14:59 22:59 Intake Total 1000 / 1000 250 / 1250 Balance 1000 / 1000 250 / 1250 Weight last 48 hrs Weight 72.575 kg Physical Exam Narrative: Euvolemic Eating hamburger Currently on 3 L oxygen Nonfocal neuroexam GCS 15 No audible stridor or wheezing Abdomen soft Right upper quadrant tenderness on palpation No sign of swelling of lower extremities Tachycardia sinus tachycardia No apparent signs of anxiety Family is at the bedside Data 07/05/23 11:50 07/05/23 11:50 Micro: Microbiology 07/05/23 13:34 Blood Culture - Preliminary Blood SPECIMEN COLLECTED 07/05/23 13:01 Blood Culture - Preliminary Blood SPECIMEN COLLECTED A&P Assessment and plan (1) Tachycardia: (2) Sepsis: (3) Neutropenic fever: (4) Cancer of left lung: (5) Primary adenocarcinoma of upper lobe of left lung: Plan Sepsis with neutropenic fever Criteria met with tachypnea tachycardia neutropenia, high lactic acid Patient has been given 2 L IV fluid bolus in the ER received antibiotics source seems to be para pneumonic effussion vs Pneumonia Blood cultures taken, will request sputum culture Sinus tachycardia Rule out PE would require CTA chest D-dimer is high Right upper quadrant pain Check CMP tomorrow Check gallbladder ultrasound Requested CT abdomen pelvis without contrast Will request records from [facility] Dr. Rubalcava is the oncologist at the [facility] For neutropenic fever I will put him on antibiotics for anti mrsa & antipseudomonal coverage with vancomycin and cefepime. If fever does not subside we will add antifungal treatment Full code Card diet Neutropenic precautions Attestations Medical Necessity Statement*: >2midnights for sepsis Diagnoses Tachycardia R00.0 Sepsis A41.9 Neutropenic fever D70.9; R50.81 Cancer of left lung C34.92 Primary adenocarcinoma of upper lobe of left lung C34.12
[2023-07-05] MEDS: acetaminophen 500 mg Tablet 1000 MG PO (16:35)
[2023-07-05] MEDS: filgrastim-sndz 300 mcg/0.5 mL Syringe SUBCUT (17:03)
--- NOTE | 2023-07-05 17:30 | ECG_ITS ---
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 Measurements Intervals [place] Rate: 121 P: 63 RI: 149 QRS: 97 QRSD: 113 T: 57 QT: 294 QTc: 418 Interpretive Statements SINUS TACHYCARDIA BORDERLINE RIGHT AXIS DEVIATION [QRS AXIS > 90] MODERATE INTRAVENTRICULAR CONDUCTION DELAY [110+ ms QRS DURATION] ABNORMAL RHYTHM ECG Compared to ECG 07/05/2023 13:39:42 Intraventricular conduction delay now present Electronically Signed On 07-06-2023 13:57:09 CDT by Oracio Tidwell M.D. [id number]
[2023-07-05] MEDS: cefepime 2,000 MG in sodium chloride 0.9% (plus) 50 ML 100 MG IV (17:47)
[2023-07-05 18:59] LABS: Troponin 5 6HR 17.05 ng/L (0-15); Troponin 5 6HR Delta 1.05 ng/L (0-12)
--- NOTE | 2023-07-05 19:05 | CTR_ITS ---
PROCEDURE INFORMATION: Exam: CTA Chest With Contrast Exam date and time: 07/05/2023 8:43 PM Age: 57 years old Clinical indication: Other: St TECHNIQUE: Imaging protocol: Computed tomographic angiography of the chest with contrast. Exam focused on the arteries. 3D rendering (Not supervised by radiologist): MIP and/or 3D reconstructed images were created by the technologist. Radiation optimization: All CT scans at this facility use at least one of these dose optimization techniques: automated exposure control; mA and/or kV adjustment per patient size (includes targeted exams where dose is matched to clinical indication); or iterative reconstruction. Contrast material: OMNI 350; Contrast volume: 100 ml; Contrast route: INTRAVENOUS (IV); COMPARISON: CT angio chest PE protcl [id number] 11/18/2022 9:05 AM RADIATION DOSE METRICS: Total DLP (mGy-cm): 802.13 FINDINGS: Pulmonary arteries: Normal. No pulmonary emboli. Aorta: Unremarkable. No aortic aneurysm. No aortic dissection. Lungs: Right lung diffuse metastatic disease. Left lung diffuse opacification may reflect diffuse metastatic infiltration. Patchy right lung field airspace opacities may reflect associated pneumonic infiltrates. Pleural spaces: Small right pleural effusion. Heart: Unremarkable. No cardiomegaly. No pericardial effusion. Lymph nodes: Scattered enlarged mediastinal and right hilar adenopathy measuring 2.3 cm in the right hilar region, suggestive of metastatic disease. Bones/joints: Unremarkable. No acute fracture. Soft tissues: Unremarkable. CT/CT angio chest PE protcl [id number] IMPRESSION: 1. Negative for pulmonary embolus. 2. Right lung diffuse metastatic disease. 3. Left lung diffuse opacification may reflect diffuse metastatic infiltration. 4. Scattered enlarged mediastinal and right hilar adenopathy measuring 2.3 cm in the right hilar region, suggestive of metastatic disease. 5. Small right pleural effusion. 6. Patchy right lung field airspace opacities may reflect associated pneumonic infiltrates.
--- NOTE | 2023-07-05 19:05 | CTR_ITS ---
PROCEDURE INFORMATION: Exam: CT Abdomen And Pelvis Without Contrast Exam date and time: 07/05/2023 8:37 PM Age: 57 years old Clinical indication: Other: St; Prior surgery; Surgery date: 6+ months; Surgery type: Port TECHNIQUE: Imaging protocol: Computed tomography of the abdomen and pelvis without contrast. Radiation optimization: All CT scans at this facility use at least one of these dose optimization techniques: automated exposure control; mA and/or kV adjustment per patient size (includes targeted exams where dose is matched to clinical indication); or iterative reconstruction. COMPARISON: CT chest w con* [id number] 12/09/2022 9:32 AM RADIATION DOSE METRICS: Total DLP (mGy-cm): 495 FINDINGS: Lungs: Multifocal metastatic disease throughout the right lower lobe. Left lung diffuse airspace opacification incompletely visualized. Pleural spaces: Small right pleural effusion. Liver: Normal. No mass. Gallbladder and bile ducts: Normal. No calcified stones. No ductal dilation. Pancreas: Normal. No ductal dilation. Spleen: Normal. No splenomegaly. Adrenal glands: Normal. No mass. Kidneys and ureters: Normal. No hydronephrosis. Stomach and bowel: Small amount of fluid in the pelvis nonspecific. Next left constipation. Constipation. Appendix: No evidence of appendicitis. Intraperitoneal space: Unremarkable. No free air. No significant fluid collection. Vasculature: Unremarkable. No abdominal aortic aneurysm. Lymph nodes: Unremarkable. No enlarged lymph nodes. Urinary bladder: Unremarkable as visualized. Reproductive: Unremarkable as visualized. Bones/joints: Lumbar spine surgical hardware. Soft tissues: Unremarkable. CT/CT abdomen pelvis wo con [id number] IMPRESSION: 1. Multifocal metastatic disease throughout the right lower lobe. 2. Left lung diffuse airspace opacification incompletely visualized. 3. Small right pleural effusion. 4. Small amount of fluid in the pelvis nonspecific. 5. Lumbar spine surgical hardware. 6. Constipation.
[2023-07-05] MEDS: diphenhydrAMINE 50 mg/mL SDV 1mL 25 MG IVP (20:07)
[2023-07-05] MEDS: dexamethasone 10 mg/mL INJ IVP (20:07)
[2023-07-05] MEDS: iohexol 350 mg/mL 500 mL Btl (per mL) IV (20:45)
[2023-07-05 20:54] LABS: Lactic Sepsis W/Reflex 2.6 mmol/L (0.5-2.2)
[2023-07-05] MEDS: vancomycin 1,250 MG/250 ML PIGGYBACK 250 MG IV (21:28)
[2023-07-05] MEDS: morphine IR 15 mg Tablet 7.5 MG PO (21:37)
[2023-07-05 22:15] LABS: Reflex Lactate Order REFLEX LACTIC ORDERD
[2023-07-06] VITALS (68 sets, daily range): BP systolic 92–120; BP diastolic 49–72; PULSE 100–168; RESP 16–33; TEMP 36.3–37.3; O2SAT 86–98
[2023-07-06 00:42] LABS: Lactic Acid level (Lactate) 1.7 mmol/L (0.5-2.2)
[2023-07-06 03:34] LABS: Basophils % 3.4 %; Lymphocytes # 0.1 10^3/uL (0.8-4.8); Lymphocytes % 8.4 %; Mean Corpuscular HGB Conc 30.7 g/dL (30-55); Mean Corpuscular Hemoglobin 30.7 pg (27-33); Monocytes # 0.2 10^3/uL (0.2-0.9); Monocytes % 13.4 %; Neutrophils % 74.8 %; Nucleated Red Blood Cells % 0 %; Platelet Count 204 10^3/cmm (157-399); Red Cell Distribution Width 13.8 % (12.1-15.1); White Blood Count 1.19 10^3/uL (3.29-11.43)
[2023-07-06 03:57] LABS: Anion Gap 16.6 (5-19); Blood Urea Nitrogen 12 mg/dL (6-20); Calcium 8.7 mg/dL (8.5-10.5); Carbon Dioxide 26 mmol/L (22-29); Chloride 100 mmol/L (98-107); Creatinine Clr Calc Pharmacy 174.5296; Glomerular Filtration Rate 172.6 mL/min (90-130); Glucose 131 mg/dL (65-115); Magnesium 1.9 mg/dL (1.7-2.3); Osmolality Calculated 288 mOsm/kg (285-295); Phosphorus 2.2 mg/dL (2.5-4.5); Potassium 4.6 mmol/L (3.5-5.1); Sodium 138 mmol/L (136-145)
[2023-07-06 04:14] LABS: Neutrophils # 0.89 10^3/uL (1.8-7.7); Slide Review Slide Review Perform
[2023-07-06] MEDS: vancomycin 1,250 MG/250 ML PIGGYBACK 250 MG IV ×3 (04:26→21:48)
[2023-07-06] MEDS: morphine IR 15 mg Tablet 7.5 MG PO (04:27)
[2023-07-06] MEDS: cefepime 2,000 MG in sodium chloride 0.9% (plus) 50 ML 100 MG IV ×2 (05:30→17:00)
[2023-07-06 05:47] LABS: Alanine Aminotransferase 6 U/L (0-41); Albumin Level 4.2 g/dL (3.5-5.2); Alkaline Phosphatase 49 U/L (40-130); Aspartate Amino Transferase 10 U/L (0-40); Blood Urea Nitrogen 19 mg/dL (6-20); Calcium 9.4 mg/dL (8.5-10.5); Chloride 90 mmol/L (98-107); Globulin 3.4 g/dL (1.3-4.6); Glomerular Filtration Rate 100.4 mL/min (90-130); Glucose 106 mg/dL (65-115); Osmolality Calculated 301 mOsm/kg (285-295); Sodium 144 mmol/L (136-145); Total Bilirubin 1.7 mg/dL (0.15-1.2); Total Protein 7.6 g/dL (6.6-8.7)
[2023-07-06 06:02] LABS: Carbon Dioxide 49 mmol/L (22-29)
--- NOTE | 2023-07-06 08:58 | USCV_ITS ---
Billy Capone Age: 57 Gender: M : 1965 Exam Date: 07/06/2023 11:58 Ordering Phys: Marlene Lopes MD Technologist: Exam [place] [facility] [place] Ind[place]: chf BP: 109 / 66 HR: 118 Rhythm: Sinus Technical Quality: Adequate MEASUREMENTS (Male / Female) Normal Values 2D ECHO LV Diastolic Diameter PLAX 3.6 cm 4.2 - 5.9 / 3.9 - 5.3 cm IVS Diastolic Thickness 0.9 cm 0.6 - 1.0 / 0.6 - 0.9 cm IVS Systolic Thickness 1.1 cm LVPW Diastolic Thickness 1.1 cm 0.6 - 1.0 / 0.6 - 0.9 cm LVPW Systolic Thickness 1.5 cm LVOT Diameter 2.0 cm LV Ejection Fraction 2D Teich 80.1 % LV Ejection Fraction MOD 2C 59.3 % LV Ejection Fraction 2C AL 59.6 % LA Diameter 2.7 cm Aorta at Sinotubular Diameter 2.7 cm M-MODE LA Ao Ratio MM 1.4 AV Cusp Separation MM 1.7 cm DOPPLER AV Peak Velocity 149.0 cm/s LVOT Peak Velocity 120.0 cm/s AV Area Cont Eq vti 2.8 cm squared AV Area Cont Eq pk 2.6 cm squared MV Peak Velocity 117.0 cm/s TV Peak Velocity 120.5 cm/s TR Peak Velocity 127.0 cm/s TR Peak Gradient 6.5 mmHg TV Peak E Velocity 101.0 cm/s PV Peak Velocity 98.0 cm/s FINDINGS Left Ventricle Normal left ventricular size, systolic function and wall thickness, with no regional wall motion abnormalities. Grade I/IV diastolic dysfunction (abnormal relaxation filling pattern), normal to mildly elevated filling pressures. Left ventricular ejection fraction is estimated at 65 %. Right Ventricle The right ventricle is normal in size and function. Right Atrium The right atrium is normal in size. Left Atrium The left atrium is normal in size. Mitral Valve Structurally normal mitral valve without significant stenosis or prolapse. There is no mitral regurgitation. Aortic Valve Structurally normal aortic valve without significant sclerosis or stenosis. There is no aortic regurgitation. Tricuspid Valve Structurally normal tricuspid valve without significant stenosis or regurgitation. Pulmonary artery systolic pressure is normal. Pulmonic Valve Pulmonic valve not well visualized. Pericardium Normal pericardium without effusion. Aorta Normal ascending aorta dimension. IVC The inferior vena cava appears normal. CONCLUSIONS Normal left ventricular size, systolic function and wall thickness, with no regional wall motion abnormalities. Grade I/IV diastolic dysfunction (abnormal relaxation filling pattern), normal to mildly elevated filling pressures. Left ventricular ejection fraction is estimated at 65 %. No change from the previous study 10/06/2022 Dr. Mor Trivedi MD (Electronically Signed) Final Date: 06 Jul 2023 18:02 S
[2023-07-06] MEDS: morphine IR 15 mg Tablet PO ×3 (09:59→22:59)
[2023-07-06] MEDS: sennosides-docusate Tablet 1 TAB PO (09:59)
--- NOTE | 2023-07-06 11:42 | PM.PN ---
Subjective Subjective: Patient was told about the solid infiltrative lesions on the CT scan there is no sign of PE his cancer seems to be spreading Family was at the bedside Patient currently is on 3 to 4 L nasal cannula Afebrile this morning Tachycardia slightly better however it is still 113 Blood pressure stable No sign of cholecystitis No indication for thoracentesis as it is a solid infiltrative lesion evident on the CT scan This was discussed with associate chief nurse Patient had a bowel movement yesterday Vitals/I&O/Wt Last Vital Signs Temp 97.6 F 07/06/23 08:00 Pulse 113 H 07/06/23 10:00 Resp 18 07/06/23 09:59 BP 114/57 07/06/23 10:00 Pulse Ox 93 07/06/23 10:00 O2 Del Method Nasal Cannula 07/06/23 10:00 O2 Flow Rate 3 07/06/23 07:51 07/05/23 07/06/23 07/06/23 22:59 06:59 14:59 Intake Total 550 / 2750 670 / 3420 400 / 400 Output Total 300 / 300 Balance 250 / 2450 670 / 3120 400 / 400 Weight last 48 hrs Weight 75.115 kg Weight 75.296 kg Weight 72.575 kg Physical Exam Narrative: Patient is awake and alert Laying supine GCS 15 Abdomen soft Bilateral breath sounds with rhonchi and crackles Nonfocal neuroexam Currently on 3 L Family is at the bedside S1, S2 sinus tachycardia Active chest pain Pleuritic pain present Data 07/06/23 03:18 07/06/23 04:45 Micro: Microbiology 07/05/23 21:30 Gram Stain - Final Sputum - Expectorated Sputum 07/05/23 13:34 Blood Culture - Preliminary Blood SPECIMEN COLLECTED 07/05/23 13:01 Blood Culture - Preliminary Blood SPECIMEN COLLECTED A&P Assessment and plan (1) Left-sided chest pain: (2) Tachycardia: (3) Port-A-Cath in place: (4) Gastric pain: (5) Neutropenic fever: (6) Neutropenia with fever: (7) Cancer of left lung: (8) Primary adenocarcinoma of upper lobe of left lung: (9) Sepsis: (10) Sepsis: Qualifiers: Acute respiratory failure type: with hypoxia Sepsis acute organ dysfunction status: with acute organ dysfunction Sepsis type: sepsis due to unspecified organism Severe sepsis acute organ dysfunction type: acute respiratory failure Severe sepsis shock status: without septic shock Qualified Code(s): A41.9 - Sepsis, unspecified organism; R65.20 - Severe sepsis without septic shock; J96.01 - Acute respiratory failure with hypoxia Plan Neutropenic fever No fever today White count is improving Received 1 dose of filgrastim Lung cancer with mets Stage IVb cancer Pleural space is being invaded by solid cancer, no need of thoracentesis This seems to be related to cancer related solid lesion Continue anti-MRSA and antipseudomonal coverage Wait for sputum and blood cultures Patient most likely stay until Tuesday Cancer/seems to be progressing at this point Follows up with the [place] hematology oncology department Patient is stating that his oncologist did mention that cancer was progressing that is why chemotherapy agent was changed as a trial which seem to be not going in his favor at this point unfortunately, patient was very receptive of this information Septic related to pneumonia Continue antibiotics Sinus tachycardia No signs of PE I do believe this is related to infiltrating progressive lung cancer Patient is tolerating diet no need of IV fluids at this point Echo report is pending clinically does not look fluid overloaded BNP is above 800 Full code Transfer out of ICU to [facility] Continue cardiac diet Disposition likely on Tuesday after reviewing blood culture report Constipation: Relieved had 1 bowel movement Attestations Medical Necessity Statement*: Stay till Tuesday Diagnoses Left-sided chest pain R07.9 Tachycardia R00.0 Port-A-Cath in place Z95.828 Gastric pain R10.9 Neutropenic fever D70.9; R50.81 Cancer of left lung C34.92 Primary adenocarcinoma of upper lobe of left lung C34.12 Sepsis A41.9
--- NOTE | 2023-07-06 14:24 | PC.NURSE ---
Patient transferred to room 271, reverse isolation room on medical surgical floor. Patient ambulated to wheelchair and brought via wheelchair on 2LNC. All belongings at bedside. Patient had no requests or complaints at the time of transfer. 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 Patient oriented to room and call light use.
--- NOTE | 2023-07-06 19:12 | US_ITS ---
WS: [id number] RIGHT UPPER QUADRANT ULTRASOUND HISTORY: Right upper quadrant pain COMPARISON: None available. Liver: 20.9 cm in length. Enlarged liver. Moderate enlargement. No mass is identified. There is a sma ll amount of perihepatic fluid. No bile duct dilatation. Portal Vein: Normal hepatopetal flow with monophasic waveform. Gallbladder: Sludge layering in the gallbladder. No gallbladder wall thickening or hydrops. No stones . There is a small amount of fluid adjacent to the gallbladder secondary to the ascites. CBD: 0.4 cm Pancreas: Normal size and echogenicity. Right kidney: 12.8 cm in length. Normal size and echogenicity. No hydronephrosis or mass. Aorta and IVC: Unremarkable abdominal aorta and IVC. Small amount of ascites RIGHT upper quadrant. US/US gall bladder [id number] IMPRESSION: 1. No cholelithiasis. There is a small amount of sludge in the gallbladder but no stones or wall thickening. 2. Small amount of ascites RIGHT upper quadrant. 3. Moderate hepatomegaly. No bile duct dilatation.
[2023-07-06 21:18] LABS: Vancomycin Trough 16.1 ug/mL (10-15)
[2023-07-07] VITALS (31 sets, daily range): BP systolic 91–115; BP diastolic 42–73; PULSE 103–135; RESP 16–31; TEMP 36.5–37; O2SAT 91–98
[2023-07-07] MEDS: sodium chloride 0.9% 250 ML IV (01:39)
[2023-07-07] MEDS: sodium chloride 0.9% 500 ML 999 ML IV ×2 (02:45→03:39)
[2023-07-07] MEDS: cefepime 2,000 MG in sodium chloride 0.9% (plus) 50 ML 100 MG IV ×2 (04:43→17:43)
[2023-07-07] MEDS: vancomycin 1,250 MG/250 ML PIGGYBACK 250 MG IV (05:14)
[2023-07-07 05:24] LABS: Hematocrit 26.8 % (37-53); Mean Corpuscular HGB Conc 31.3 g/dL (30-55); Mean Corpuscular Hemoglobin 30.4 pg (27-33); Mean Corpuscular Volume 97.1 fl (82-101); Mean Platelet Volume 10.9 fL (7.4-10.4); Platelet Count 183 10^3/cmm (157-399); Red Blood Count 2.76 10^6/uL (3.85-5.65); Red Cell Distribution Width 14.1 % (12.1-15.1); White Blood Count 3.01 10^3/uL (3.29-11.43)
[2023-07-07 05:57] LABS: Anion Gap 13.9 (5-19); Blood Urea Nitrogen 16 mg/dL (6-20); Calcium 8.3 mg/dL (8.5-10.5); Carbon Dioxide 26 mmol/L (22-29); Chloride 101 mmol/L (98-107); Glomerular Filtration Rate 223.3 mL/min (90-130); Glucose 114 mg/dL (65-115); Osmolality Calculated 286 mOsm/kg (285-295); Potassium 3.9 mmol/L (3.5-5.1); Sodium 137 mmol/L (136-145)
[2023-07-07 06:21] LABS: Slide Review Slide Review Perform
[2023-07-07 06:22] LABS: Absolute Segmented Neutrophil 1.3 10/cmm (1.6-7.1); Band Neutrophils Absolute 0.7 10^3/cmm (0.0-1.2); Eosinophils 0 %; Giant Platelets Trace; Lymphocytes 14 %; Microcytosis 1+; Monocytes Absolute 0.5 10^3/cmm (0.1-0.6); Platelet Estimate Normal (Normal); Segmented Neutrophils 42 %; Target Cells 1+; Total Cells Counted 100 (0-100)
[2023-07-07] MEDS: ketorolac 30 mg/mL INJ 15 MG IVP (06:26)
[2023-07-07] MEDS: lidocaine 5% Patch 1 PATCH TOPICAL (08:39)
[2023-07-07] MEDS: sennosides-docusate Tablet 1 TAB PO (08:39)
[2023-07-07] MEDS: morphine IR 15 mg Tablet 7.5 MG PO ×3 (08:46→21:57)
[2023-07-07] MEDS: ipratropium-albuterol 3 mL Neb INHALATION ×2 (08:58→15:03)
[2023-07-07] MEDS: metoprolol tartrate 25 mg Tablet PO ×2 (09:36→22:01)
[2023-07-07 10:54] LABS: ABG PCO2 40.7 mmHg (35-45); ABG PH Result 7.45 (7.35-7.45); Arterial Blood Gas Hematocrit 27.4 % (42-52); Base Excess ABG 3.9 mmol/L (-2.0-2.0); Blood Gas Allen Test Pos; Blood Gas Operator Identificat MONRO; Blood Gas Sample Site Radial, right; Blood Gas Sample Type Arterial; HCO3 ABG 28.2 mmol/L (22-26); Oxygen Device NC; PO2 ABG 64.3 mmHg (80.0-100.0); PO2 FiO2 Ratio Arterial Blood 0
--- NOTE | 2023-07-07 11:22 | P.PN_ITS ---
Subjective 2 Subjective: Neutropenia improving Afebrile Patient had low blood pressure yesterday Opioids changed This morning patient is still tachycardic blood pressure is stable currently requiring 3 to 4 L We had very pleasant and tawny discussion regarding getting a hold of palliative care in case he gets worse down the road Patient is well receptive I have added low-dose metoprolol today for his persistent tachycardia ABG this morning showed relative hypoxia on 3 L of oxygen Will do gentle fluid hydration until 4 PM No BM today, passage of flatus endorsed with the patient Vitals/I&O/Wt Last Vital Signs Temp 98.6 F 07/07/23 07:52 Pulse 117 H 07/07/23 09:08 Resp 20 H 07/07/23 08:59 BP 110/62 07/07/23 07:52 Pulse Ox 94 07/07/23 08:59 O2 Del Method Nasal Cannula 07/07/23 08:59 O2 Flow Rate 3 07/07/23 08:59 07/06/23 07/07/23 07/07/23 22:59 06:59 14:59 Intake Total 770 / 1420 2160 / 3580 Balance 770 / 1220 2160 / 3380 Weight last 48 hrs Weight 73.618 kg Weight 75.115 kg Weight 75.296 kg Weight 72.575 kg Physical Exam 2 Narrative: Awake and alert GCS 15 Blood pressure stable Tachycardia Currently on 3 L Nonfocal neuroexam Gets hypoxic and tachycardic on ambulation Tolerating diet Passing gas Abdomen soft Data 07/07/23 04:42 07/07/23 04:42 Micro: Microbiology 07/05/23 13:34 Blood Culture - Preliminary Blood NEGATIVE TO DATE 07/05/23 13:01 Blood Culture - Preliminary Blood NEGATIVE TO DATE 07/05/23 21:30 Gram Stain - Final Sputum - Expectorated Sputum A&P Assessment and plan (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: (2) Left-sided chest pain: (3) Right-sided chest pain: (4) Tachycardia: (5) Port-A-Cath in place: (6) Neutropenic fever: (7) Neutropenia with fever: (8) Cancer of left lung: (9) Primary adenocarcinoma of upper lobe of left lung: (10) Sepsis: (11) Constipation: (12) Hypoxia: (13) Pneumonia: Plan Neutropenic fever: Improving Sepsis: Resolved Sinus tachycardia has not improved added low-dose metoprolol No signs of PE I do believe this is related to infiltrating of solid cancer towards pleura Hypoxia related to underlying cancer and pneumonia patient will need home oxygen evaluation before discharge Hypoxia on 3 L Cultures negative No need of thoracentesis as per pulmonology there is solid mass infiltrating pleura most likely related to cancer metastatic lesions Patient is stating that they have already started the process of getting in touch with palliative care via 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
[2023-07-07] MEDS: sodium chloride 0.9% 1,000 ML 100 ML IV (11:56)
[2023-07-07] MEDS: predniSONE 5 mg Tablet PO (15:38)
--- NOTE | 2023-07-07 15:42 | XRR_ITS ---
PROCEDURE INFORMATION: Exam: XR Chest Exam date and time: 07/07/2023 3:56 PM Age: 57 years old Clinical indication: Shortness of breath; Prior surgery; Surgery date: 6+ months; Surgery type: Port; Patient HX: HX of lung cancer; Additional info: Sob/de-sat/coarse lungs TECHNIQUE: Imaging protocol: Radiologic exam of the chest. Views: 1 view. COMPARISON: CT angio chest PE protcl [id number] 07/05/2023 8:43 PM FINDINGS: Tubes, catheters and devices: Left-sided central venous chest port noted with the distal tip at the cavoatrial junction. Lungs: Complete consolidation of the left lung again noted similar to prior exam. Dense and ground-glass opacities noted throughout the right lung similar to prior exam. Pleural spaces: No pneumothorax. Heart/Mediastinum: The cardiomediastinal silhouette is obscured. Bones/joints: Unremarkable. XR/XR chest 1V portable [id number] IMPRESSION: No significant change from recent chest CT.
[2023-07-07] MEDS: enoxaparin 40 mg/0.4 mL Syringe SUBCUT (17:42)
[2023-07-07] MEDS: FUROsemide 10 mg/mL SDV 4mL 40 MG IVP (17:42)
--- NOTE | 2023-07-07 19:12 | PC.NURSE ---
This nurse called report to MELISSA Chow in ICU at 1910. Respiratory can transfer bipap to ICU in 10mins. Pt going to ICU12.
[2023-07-07] MEDS: ondansetron 2 mg/ML SDV 2 mL 4 MG IVP (21:34)
[2023-07-07] MEDS: CLONazepam 0.5 mg Tablet PO (22:06)
[2023-07-08] VITALS (52 sets, daily range): BP systolic 89–125; BP diastolic 44–68; PULSE 102–123; RESP 16–38; TEMP 36.7–37.4; O2SAT 89–98; BMI 23.0
[2023-07-08 03:54] LABS: Basophils % 0.2 %; Eosinophils % 0.1 %; Hematocrit 30.7 % (37-53); Lymphocytes # 0.6 10^3/uL (0.8-4.8); Lymphocytes % 5.7 %; Mean Corpuscular HGB Conc 30.9 g/dL (30-55); Mean Corpuscular Hemoglobin 30.3 pg (27-33); Mean Corpuscular Volume 97.8 fl (82-101); Mean Platelet Volume 10.8 fL (7.4-10.4); Monocytes % 10.5 %; Neutrophils # 7.22 10^3/uL (1.8-7.7); Neutrophils % 75.3 %; Nucleated Red Blood Cells % 0.3 %; Platelet Count 287 10^3/cmm (157-399); Red Blood Count 3.14 10^6/uL (3.85-5.65); Red Cell Distribution Width 14.4 % (12.1-15.1)
[2023-07-08] MEDS: morphine IR 15 mg Tablet 7.5 MG PO ×3 (04:01→14:21)
[2023-07-08 04:15] LABS: Anion Gap 16.5 (5-19); Blood Urea Nitrogen 15 mg/dL (6-20); Carbon Dioxide 29 mmol/L (22-29); Chloride 94 mmol/L (98-107); Glomerular Filtration Rate 172.6 mL/min (90-130); Glucose 117 mg/dL (65-115); Osmolality Calculated 284 mOsm/kg (285-295); Potassium 3.5 mmol/L (3.5-5.1); Sodium 136 mmol/L (136-145)
[2023-07-08 04:20] LABS: Creatinine Clr Calc Pharmacy 172.9448
[2023-07-08 04:53] LABS: Slide Review Slide Review Perform
[2023-07-08] MEDS: cefepime 2,000 MG in sodium chloride 0.9% (plus) 50 ML 100 MG IV ×2 (05:16→17:38)
[2023-07-08] MEDS: FUROsemide 10 mg/mL SDV 4mL 40 MG IVP ×2 (05:16→12:49)
[2023-07-08] MEDS: ipratropium-albuterol 3 mL Neb INHALATION (08:20)
[2023-07-08] MEDS: lidocaine 5% Patch 1 PATCH TOPICAL (09:12)
[2023-07-08] MEDS: sennosides-docusate Tablet 1 TAB PO (09:14)
[2023-07-08] MEDS: metoprolol tartrate 25 mg Tablet PO (09:14)
[2023-07-08] MEDS: predniSONE 5 mg Tablet PO (09:14)
--- NOTE | 2023-07-08 09:24 | ECG_ITS ---
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 Measurements Intervals [place] Rate: 147 P: 0 LA: 0 QRS: 97 QRSD: 92 T: 26 QT: 288 QTc: 451 Interpretive Statements ATRIAL FIBRILLATION WITH RAPID VENTRICULAR RESPONSE BORDERLINE RIGHT AXIS DEVIATION [QRS AXIS > 90] MODERATE ST DEPRESSION [0.05+ mV ST DEPRESSION] Compared to ECG 07/05/2023 17:31:30 ST (T wave) deviation now present Sinus tachycardia no longer present Intraventricular conduction delay no longer present Electronically Signed On 07-08-2023 12:32:58 CDT by Oracio Tidwell M.D. [id number]
--- NOTE | 2023-07-08 09:27 | PC.NURSE ---
Dr. Lopes at bedside observed afib RVR this nurse notified HCP rhythm starts during coughing then converts. orders received for amio per mar
[2023-07-08] MEDS: amiodarone 150 MG/100 ML PREMIX 400 MG IV (09:36)
--- NOTE | 2023-07-08 09:51 | PC.SOCIAL ---
IMM Update pg 2 of IMM updated and reviewed w/ patient. Copy provided and copy dated, initialed and placed in chart.
--- NOTE | 2023-07-08 10:30 | PC.NURSE ---
HR gets to 170s afib periodically but does not sustain returns to 120s and one teens, HCP aware
--- NOTE | 2023-07-08 11:41 | P.PN_ITS ---
Subjective 2 Subjective: Patient. BiPAP overnight This morning feeling better Currently on 4 L nasal cannula Went into A-fib RVR heart rate 160s Started Amio drip after giving bolus of 150 mg, plan to keep him in the ICU, if stable by tomorrow we might be able to discharge him home patient is stating that he is already on palliative care but wants to stay full code and wants his to make a decision if he gets intubated Vitals/I&O/Wt Last Vital Signs Temp 98.6 F 07/08/23 05:30 Pulse 119 H 07/08/23 09:00 Resp 24 H 07/08/23 09:15 BP 97/65 07/08/23 08:30 Pulse Ox 92 07/08/23 09:15 O2 Del Method Nasal Cannula 07/08/23 08:20 O2 Flow Rate 4 07/08/23 08:20 FiO2 40 07/08/23 05:30 07/07/23 07/08/23 07/08/23 22:59 06:59 14:59 Intake Total 530 / 1210 530 / 1740 200 / 200 Output Total 1999 / 1999 Balance -1470 / -790 530 / -260 200 / 200 Weight last 48 hrs Weight 72.688 kg Weight 73.618 kg Physical Exam 2 Narrative: Awake and alert Bilateral breath sounds with rhonchi Diminished left-sided breath sounds GCS 15 Nonfocal neuroexam Sitting in chair A-fib RVR Awake and alert at the bedside Currently on 4 L Data 07/08/23 03:14 07/08/23 03:14 Micro: Microbiology 07/05/23 21:30 Gram Stain - Final Sputum - Expectorated Sputum Sputum Culture - Preliminary A&P Assessment and plan (1) Hypoxia: (2) Pneumonia: (3) Sepsis: (4) Primary adenocarcinoma of upper lobe of left lung: (5) Neutropenia with fever: (6) Cancer of left lung: (7) Port-A-Cath in place: (8) Tachycardia: (9) Atrial fibrillation with RVR: (10) Constipation: Plan Lung cancer with mets Worsening hypoxia However in last 24 hours his oxygen requirement has not worsened, currently doing well on 4 L Used BiPAP overnight Continue antibiotics cefepime Vancomycin discontinued Neutropenic fever: Subsided Neutropenia improving Patient received 1 dose of filgrastim Constipation: Improved New onset A-fib [id number] 3: Start therapeutic Lovenox Added amiodarone because of low blood pressure Patient is stating that he is already on palliative [facility] He wants to stay full code in case of intubation his will make further decision Multiple family meetings conducted, he wants to stay full code that is his final decision Attestations 2 Medical Necessity Statement*: Likely discharge by tomorrow Diagnoses Hypoxia R09.02 Pneumonia J18.9 Sepsis A41.9 Primary adenocarcinoma of upper lobe of left lung C34.12 Neutropenia with fever D70.9; R50.81 Cancer of left lung C34.92 Port-A-Cath in place Z95.828 Tachycardia R00.0 Atrial fibrillation with RVR I48.91 Constipation K59.00
--- NOTE | 2023-07-08 11:42 | US_ITS ---
WS: [id number] Ultrasound chest, LEFT. HISTORY: Evaluate for fluid. No significant amount of fluid is noted within the LEFT chest as submitted. There is a tiny amount of fluid identified. There is a solid component which is probably neoplastic. No color Doppler imaging submitted. US/US chest [id number] IMPRESSION: No significant LEFT pleural fluid. There is a solid-appearing mass which was incompletely evaluated by ultrasound during this exam.
[2023-07-08] MEDS: oxyCODONE 5 mg IR Tab/Cap PO ×2 (15:55→19:58)
[2023-07-08] MEDS: enoxaparin 80 mg/0.8 mL Syringe 70 MG SUBCUT (17:39)
[2023-07-08] MEDS: ketorolac 30 mg/mL INJ 15 MG IVP (22:53)
[2023-07-09] VITALS (32 sets, daily range): BP systolic 96–126; BP diastolic 50–72; PULSE 94–114; RESP 15–34; TEMP 36.5–36.8; O2SAT 91–96; BMI 22.8
[2023-07-09] MEDS: cefepime 2,000 MG in sodium chloride 0.9% (plus) 50 ML 100 MG IV (05:29)
[2023-07-09 05:33] LABS: Hematocrit 29.4 % (37-53); Mean Corpuscular HGB Conc 30.3 g/dL (30-55); Mean Corpuscular Hemoglobin 30.3 pg (27-33); Mean Platelet Volume 11.2 fL (7.4-10.4); Platelet Count 249 10^3/cmm (157-399); Red Blood Count 2.94 10^6/uL (3.85-5.65); Red Cell Distribution Width 14.4 % (12.1-15.1)
[2023-07-09 05:59] LABS: Magnesium 1.9 mg/dL (1.7-2.3)
[2023-07-09 06:01] LABS: Blood Urea Nitrogen 18 mg/dL (6-20); Calcium 8.9 mg/dL (8.5-10.5); Carbon Dioxide 31 mmol/L (22-29); Chloride 94 mmol/L (98-107); Glomerular Filtration Rate 172.6 mL/min (90-130); Glucose 142 mg/dL (65-115); Osmolality Calculated 288 mOsm/kg (285-295); Sodium 137 mmol/L (136-145)
[2023-07-09 06:04] LABS: Creatinine Clr Calc Pharmacy 171.5583
[2023-07-09] MEDS: ipratropium-albuterol 3 mL Neb INHALATION (06:13)
--- NOTE | 2023-07-09 06:20 | PC.NURSE ---
Patient started to have wheezing throughout all lung preciado after Bipap was taken off. Respiratory Therapist contacted and breathing treatment was provided.Doctor Tabitha was notified.
[2023-07-09 07:01] LABS: Slide Review Slide Review Perform
[2023-07-09 07:05] LABS: Lymphocytes 5 %; Monocytes Absolute 0.6 10^3/cmm (0.1-0.6); Segmented Neutrophils 68 %; Total Cells Counted 100 (0-100)
[2023-07-09 07:07] LABS: Blastocytes 1 % (0-0); Eosinophils 0 %; Lymphocytes Absolute 0.6 10^3/cmm (1.2-3.4)
[2023-07-09 07:08] LABS: Platelet Estimate Normal (Normal)
[2023-07-09] MEDS: lidocaine 5% Patch 1 PATCH TOPICAL (08:55)
[2023-07-09] MEDS: oxyCODONE 5 mg IR Tab/Cap PO (08:55)
[2023-07-09] MEDS: predniSONE 5 mg Tablet PO (08:55)
[2023-07-09] MEDS: morphine IR 15 mg Tablet 7.5 MG PO (10:48)
--- NOTE | 2023-07-09 11:44 | P.DS_ITS ---
Discharge Providers Date of Admission: 07/05/23 17:04 Date of Discharge: July 09, 2023 Attending Provider at Admission: Marlene Lopes MD Attending Provider at Discharge: Marlene Lopes MD Primary Care Provider: KELBY Eugene Diagnoses at Discharge Discharge Diagnosis (1) Hypoxia: Status: Acute (2) Pneumonia: Status: Acute (3) Sepsis: Status: Acute (4) Primary adenocarcinoma of upper lobe of left lung: Status: Acute (5) Neutropenia with fever: Status: Acute (6) Cancer of left lung: Status: Acute (7) Port-A-Cath in place: Status: Acute (8) Tachycardia: Status: Acute (9) Atrial fibrillation with RVR: Status: Acute (10) Constipation: Status: Acute Reason for Visit Reason for Visit: Chest Pain Hospital Course Hospital Course 57-year-old male with history of stage IVb left lung cancer adenocarcinoma follows up with oncology at [facility], status post chemoradiation, after seeing progression of lung cancer with mets to liver decision was made to try Docetaxol and Ricarumimab, after first cycle patient became neutropenic, present to the hospital with neutropenic fever, he was kept in neutropenic precautions with anti-MRSA and antipseudomonal antibiotic coverage, patient was given 1 dose of filgrastim which improved his neutropenia, patient did not spike fever after first 24 hours, cultures remain negative, please note his oxygen requirement has been fluctuating, I had to put him on BiPAP on few days however at baseline he is doing well on 3 to 4 L of nasal cannula supplemental oxygen, goals of care discussed with the patient and his , they do understand that he is at risk of worsening in the future especially with underlying persistent tachycardia/A-fib, complete whiteout of left lung which is all solid infiltrative lung cancer, there is no fluid to be drained he carries a guarded prognosis, patient is stating that he wants to stay full code and if he gets intubated then he wants his to make further decisions. They do understand that he has a guarded prognosis. During hospitalization he developed A-fib with RVR required amiodarone because of low blood pressure, I will discharge him on Eliquis and amiodarone. Patient started experiencing fresh bright bleed per rectum secondary to hemorrhoids, he also has mild hemoptysis I have asked him not to take Eliquis for at least next 3 to 4 days after discharge. Patient understood all instructions, he is well receptive of his guarded progno sis, but wants to stay full code, his symptoms did improve with use of Lasix I have prescribed him Lasix on as-needed basis along potassium supplementation, Please note patient became fluid overloaded with gentle fluid hydration in the hospital and required Lasix Physical Exam Narrative: Awake and alert Currently on 4 L Cachectic, malnourished GCS 15 at the bedside S1, S2 sinus tachycardia Discharge Data Studies Completed and Pending Completed Studies During Hospitalization Category Date Time Status CT abdomen pelvis wo con [id number] Routine Cat Scan 07/05/23 19:05 Completed CTA PE [CT angio chest PE protcl [id number]] Routine Cat Scan 07/05/23 19:05 Completed XR chest 1V portable [id number] Stat Exams 07/05/23 11:30 Completed XR chest 1V portable [id number] Stat Exams 07/07/23 15:42 Completed CV. echo complete* [id number] Routine Ultrasound 07/06/23 08:58 Completed US chest [id number] Routine Ultrasound 07/08/23 11:42 Completed US gall bladder [id number] Routine Ultrasound 07/06/23 19:12 Completed Pending at discharge Category Date Time Status Blood Culture Stat Lab 07/05/23 13:34 Results MRSA [Methicillin Resistant S.aureu] Routine Lab 07/08/23 16:10 Received Radiology Impressions Abdomen/Pelvis CT 07/05/23 19:05 IMPRESSION: 1. Multifocal metastatic disease throughout the right lower lobe. 2. Left lung diffuse airspace opacification incompletely visualized. 3. Small right pleural effusion. 4. Small amount of fluid in the pelvis nonspecific. 5. Lumbar spine surgical hardware. 6. Constipation. Chest CTA 07/05/23 19:05 IMPRESSION: 1. Negative for pulmonary embolus. 2. Right lung diffuse metastatic disease. 3. Left lung diffuse opacification may reflect diffuse metastatic infiltration. 4. Scattered enlarged mediastinal and right hilar adenopathy measuring 2.3 cm in the right hilar region, suggestive of metastatic disease. 5. Small right pleural effusion. 6. Patchy right lung field airspace opacities may reflect associated pneumonic infiltrates. Gallbladder Ultrasound 07/06/23 19:12 IMPRESSION: 1. No cholelithiasis. There is a small amount of sludge in the gallbladder but no stones or wall thickening. 2. Small amount of ascites RIGHT upper quadrant. 3. Moderate hepatomegaly. No bile duct dilatation. Chest X-Ray 07/07/23 15:42 IMPRESSION: No significant change from recent chest CT. Chest Ultrasound 07/08/23 11:42 IMPRESSION: No significant LEFT pleural fluid. There is a solid-appearing mass which was incompletely evaluated by ultrasound during this exam. Laboratory Results WBC 11.80 10^3/uL (3.29-11.43) H 07/09/23 04:51 RBC 2.94 10^6/uL (3.85-5.65) L 07/09/23 04:51 Hgb 8.90 g/dL (11.27-16.99) L 07/09/23 04:51 Hct 29.4 % (37-53) L 07/09/23 04:51 MCV 100.0 fl (82-101) 07/09/23 04:51 MCH 30.3 pg (27-33) 07/09/23 04:51 MCHC 30.3 g/dL (30-55) 07/09/23 04:51 RDW 14.4 % (12.1-15.1) 07/09/23 04:51 Plt Count 249 10^3/cmm (157-399) 07/09/23 04:51 MPV 11.2 fL (7.4-10.4) H 07/09/23 04:51 Neut % (Auto) 75.3 % 07/08/23 03:14 Lymph % (Auto) Not Reportable 07/09/23 04:51 [place] % (Auto) Not Reportable 07/09/23 04:51 Eos % (Auto) 0.1 % 07/08/23 03:14 Baso % (Auto) 0.2 % 07/08/23 03:14 Neut # (Auto) 7.22 10^3/uL (1.8-7.7) 07/08/23 03:14 Lymph # (Auto) Not Reportable 07/09/23 04:51 [place] # (Auto) Not Reportable 07/09/23 04:51 Eos # (Auto) 0.0 10^3/uL (0.0-0.8) 07/08/23 03:14 Baso # (Auto) 0.0 10^3/uL (0.0-0.1) 07/08/23 03:14 Nucleated RBC % (auto) 0.3 % 07/08/23 03:14 Total Counted 100 (0-100) 07/09/23 04:51 Atypical Lymphs % 0.0 % (0-5) 07/09/23 04:51 Absolute Neutrophils 10.0 10^3/cmm (1.4-6.5) H 07/09/23 04:51 Segmented Neutrophils 68 % 07/09/23 04:51 Abs Segm Neuts (Man) 8.0 10/cmm (1.6-7.1) H 07/09/23 04:51 Band Neutrophils 17.0 % 07/09/23 04:51 Abs Band Neuts (Man) 2.0 10^3/cmm (0.0-1.2) H 07/09/23 04:51 Absolute Lymphocytes 0.6 10^3/cmm (1.2-3.4) L 07/09/23 04:51 Lymphocytes (Manual) 5 % 07/09/23 04:51 Monocytes (Manual) 5.0 % 07/09/23 04:51 Absolute Monocytes 0.6 10^3/cmm (0.1-0.6) 07/09/23 04:51 Eosinophils (Manual) 0 % 07/09/23 04:51 Absolute Eosinophils 0.0 10^3/cmm (0.0-0.7) 07/09/23 04:51 Basophils (Manual) 0.0 % 07/09/23 04:51 Absolute Basophils 0.0 10^3/cmm (0.0-0.2) 07/09/23 04:51 Metamyelocytes 3.0 % 07/09/23 04:51 Myelocytes 1.0 % 07/09/23 04:51 Nucleated RBCs # 0.0 /100WBC 07/08/23 03:14 Blast Cells 1 % (0-0) H 07/09/23 04:51 Platelet Estimate Normal (Normal) 07/09/23 04:51 Giant Platelets Trace 07/07/23 04:42 Microcytosis 1+ H 07/07/23 04:42 Target Cells 1+ H 07/07/23 04:42 D-Dimer 1.67 ug/mLFEU (0-0.59) H 07/05/23 11:50 Specimen Type Arterial 07/07/23 10:41 Sample Site Radial, right 07/07/23 10:41 ABG pH 7.45 (7.35-7.45) 07/07/23 10:41 ABG pCO2 40.7 mmHg (35-45) 07/07/23 10:41 ABG pO2 64.3 mmHg (80.0-100.0) L 07/07/23 10:41 ABG PO2/FiO2 Ratio 0 07/07/23 10:41 ABG HCO3 28.2 mmol/L (22-26) H 07/07/23 10:41 ABG Base Excess 3.9 mmol/L (-2.0-2.0) H 07/07/23 10:41 Flip Test Pos 07/07/23 10:41 Hematocrit 27.4 % (42-52) L 07/07/23 10:41 O2 Delivery Device Nc 07/07/23 10:41 O2 Liters/Min 3.0 % 07/07/23 10:41 FiO2 32.0 % 07/07/23 10:41 Floor Supervisor ID [place] 07/07/23 10:41 Sodium 137 mmol/L (136-145) 07/09/23 04:51 Potassium 3.0 mmol/L (3.5-5.1) L 07/09/23 04:51 Chloride 94 mmol/L (98-107) L 07/09/23 04:51 Carbon Dioxide 31 mmol/L (22-29) H 07/09/23 04:51 Anion Gap 15.0 (5-19) 07/09/23 04:51 BUN 18 mg/dL (6-20) 07/09/23 04:51 Creatinine 0.5 mg/dL (0.7-1.2) L 07/09/23 04:51 GFR Calculation 172.6 mL/min (90-130) H 07/09/23 04:51 Glucose 142 mg/dL (65-115) H 07/09/23 04:51 Calculated Osmolality 288 mOsm/kg (285-295) 07/09/23 04:51 Lactic Acid 2.6 mmol/L (0.5-2.2) H 07/05/23 20:11 Lactic Acid (Sepsis) 1.7 mmol/L (0.5-2.2) 07/06/23 00:15 Calcium 8.9 mg/dL (8.5-10.5) 07/09/23 04:51 Phosphorus 2.2 mg/dL (2.5-4.5) L 07/06/23 03:18 Magnesium 1.9 mg/dL (1.7-2.3) 07/09/23 04:51 Total Bilirubin 1.7 mg/dL (0.15-1.2) H 07/06/23 04:45 AST 10 U/L (0-40) 07/06/23 04:45 ALT 6 U/L (0-41) 07/06/23 04:45 Alkaline Phosphatase 49 U/L (40-130) 07/06/23 04:45 Troponin T Baseline 16 ng/L (0-15) H 07/05/23 11:50 Troponin T 120 Minute 15.43 ng/L (0-15) H 07/05/23 13:42 Delta Troponin T -0.57 ABS# (0-10) L 07/05/23 13:42 Troponin T Hi Sens 6Hr 17.05 ng/L (0-15) H 07/05/23 17:59 Troponin T Hi Sens 6Hr Delta 1.05 ng/L (0-12) 07/05/23 17:59 C-Reactive Protein 311.0 mg/L (0.0-4.9) H 07/06/23 03:18 NT-Pro-B Natriuret Pep 864 pg/mL (0-125) H 07/05/23 11:50 Total Protein 7.6 g/dL (6.6-8.7) 07/06/23 04:45 Albumin 4.2 g/dL (3.5-5.2) 07/06/23 04:45 Globulin 3.4 g/dL (1.3-4.6) 07/06/23 04:45 Procalcitonin > 100.00 ng/mL (0-0.5) H 07/05/23 11:35 Random Cortisol 12.20 ug/dL (2.47-19.5) 07/07/23 04:42 Urine Color Yellow (Yellow) 07/05/23 12:46 Urine Appearance Clear (CLEAR) 07/05/23 12:46 Urine pH 5 (5-7) 07/05/23 12:46 Ur Specific [place] 1.020 (1.005-1.030) 07/05/23 12:46 Urine Protein 1+ (Negative) H 07/05/23 12:46 Urine Glucose (UA) Norm (Normal) 07/05/23 12:46 Urine Ketones 1+ (Negative) H 07/05/23 12:46 Urine Blood 2+ (Negative) H 07/05/23 12:46 Urine Nitrate Negative (Negative) 07/05/23 12:46 Urine Bilirubin Neg (Negative) 07/05/23 12:46 Urine Urobilinogen 1 mg/dL (Negative) H 07/05/23 12:46 Ur Leukocyte Esterase Trace (Negative) H 07/05/23 12:46 Urine RBC 0-4 /hpf (0-2) H 07/05/23 12:46 Urine WBC 0-4 /hpf (0-5) H 07/05/23 12:46 Ur Squamous Epith Cells 0-4 /hpf (0-5) H 07/05/23 12:46 Amorphous Sediment Not Reportable 07/05/23 12:46 Urine Bacteria Trace /hpf (NONE) 07/05/23 12:46 Vancomycin Trough 16.1 ug/mL (10-15) H 07/06/23 20:45 Urine Opiates Screen Positive ng/mL (Negative) H 07/05/23 12:46 Ur Barbiturates Screen Negative ng/mL (Negative) 07/05/23 12:46 Ur Phencyclidine Scrn Negative ng/mL (Negative) 07/05/23 12:46 Ur Amphetamines Screen Negative ng/mL (Negative) 07/05/23 12:46 U Benzodiazepines Scrn Negative ng/mL (Negative) 07/05/23 12:46 Urine Cocaine Screen Negative ng/mL (Negative) 07/05/23 12:46 U Marijuana (THC) Screen Negative ng/mL (Negative) 07/05/23 12:46 Vitals Last Vital Signs Temp 98.0 F 07/08/23 23:30 Pulse 94 07/09/23 08:00 Resp 24 H 07/09/23 10:48 BP 98/59 07/09/23 04:00 Pulse Ox 92 07/09/23 10:48 O2 Del Method Nasal Cannula 07/09/23 06:13 O2 Flow Rate 4 07/09/23 06:13 FiO2 40 07/09/23 08:00 Discharge Plan Discharge Patient Disposition: Home Condition: Stable Prescriptions: New tramadol 25 mg tablet 25 mg PO Q6H PRN (Reason: pain) Qty: 20 0RF amiodarone 400 mg tablet 400 mg PO DAILY Qty: 90 4RF Rx Instructions: 400 mg twice daily for 7 days then 400 mg daily amoxicillin-pot clavulanate 875-125 mg tablet 1 tab PO BID Qty: 6 0RF Eliquis 5 mg tablet 5 mg PO BID Qty: 60 1RF potassium chloride 10 mEq tablet extended release 10 meq PO DAILY Qty: 30 1RF Rx Instructions: Only take potassium when you take Lasix doxycycline hyclate 100 mg tablet 100 mg PO BID 3 Days Qty: 6 0RF Trelegy Ellipta 100-62.5-25 mcg blister with device 1 inh inhalation DAILY Qty: 60 5RF furosemide [Lasix] 20 mg tablet 20 mg PO DAILY PRN (Reason: weight gain) Qty: 30 0RF Rx Instructions: As needed if weight gain more than 3 pounds in 24 hours ketorolac 10 mg tablet 10 mg PO Q8H PRN (Reason: pain) Qty: 7 0RF Continued Zyrtec 10 mg capsule 10 mg PO DAILY PRN (Reason: Allergy Symptoms) ondansetron HCl 4 mg tablet 4 mg PO Q8H Qty: 30 1RF acetaminophen [Tylenol Ex Str Rapid Release] 500 mg Tablet 1,000 mg PO Q6H PRN (Reason: Pain) prednisone 5 mg Tablet 10 mg PO DAILY promethazine 25 mg tablet 25 mg PO Q8H PRN (Reason: Nausea) morphine 15 mg Tablet 7.5 mg PO Q6H PRN (Reason: Pain) lidocaine 5 % Adhesive Patch,Medicated 1 patch TOPICAL DAILY Rx Instructions: leave on most painful area for up to 12 hrs Discontinued Levaquin 750 mg Tablet 750 mg PO DAILY Discharge Orders: Discharge Order (Routine); Ordered 07/09/23 Ordered By: Marlene Lopes Referrals: Ana Luisa Agarwal FNP [Primary Care Provider] - Patient Instructions: Opioid Safety Discharge Attestations Time Spent in Discharge Care*: greater than 30 min Quality Metrics Clinical Quality Measures [ No reported AMI, CVA or VTE this stay] Coding Level of Care Code Acute Code for [facility] Fwd Diagnoses Hypoxia R09.02 Pneumonia J18.9 Sepsis A41.9 Primary adenocarcinoma of upper lobe of left lung C34.12 Neutropenia with fever D70.9; R50.81 Cancer of left lung C34.92 Port-A-Cath in place Z95.828 Tachycardia R00.0 Atrial fibrillation with RVR I48.91 Constipation K59.00
--- NOTE | 2023-07-09 11:45 | PC.NURSE ---
Patient had a bowel movement in the toilet this morning. He stated it was very bloody, more blood than stool, but flushed it before nurse could observe it as he was embarrassed about it. Nurse alerted Dr morgan.
--- NOTE | 2023-07-09 13:30 | PC.NURSE ---
Discharged patient. Portacth needle removed. Upcoming appointment and new medication education provided to patient and . Medications sent to [facility] pharmacy. Patient signature form signed.
== END 2023-07-09 12:45 | disposition home or self-care (01) | DRG 194 ==
LOC: ER 13:17 → ICU 17:04 → MEDSURG 07-06 14:28 → ICU 07-07 19:43
PROVIDERS: Internal Medicine; Admitting Provider Internal Medicine; Emergency Provider Emergency Medicine; PCP Nurse Practitioner; Visit Provider Internal Medicine
DX: J18.9 Pneumonia, unspecified organism (principal); C34.12 Malignant neoplasm of upper lobe, left bronchus or lung; C78.7 Secondary malignant neoplasm of liver and intrahepatic bile duct; D70.9 Neutropenia, unspecified; R50.81 Fever presenting with conditions classified elsewhere; Z87.891 Personal history of nicotine dependence; R00.0 Tachycardia, unspecified; I48.91 Unspecified atrial fibrillation; K59.00 Constipation, unspecified; Z99.81 Dependence on supplemental oxygen; I95.9 Hypotension, unspecified; K64.9 Unspecified hemorrhoids; Z95.828 Presence of other vascular implants and grafts
CPT/HCPCS: 36415; 36591; 36600; 71045; 71275; 74176; 76604; 76705; 80048; 80053; 80202; 80306; 81001; 82533; 82803; 83605; 83735; 83880; 84100; 84145; 84484; 85007; 85025; 85378; 86140; 87040; 87070; 87205; 87641; 93005; 93306; 94640; 94660; 96365; 96367; 96372; 96375; 96376; 99291; 99292; A4222; J0283; J0692; J1100; J1170; J1200; J1650; J1885; J1940; J2405; J2543; J3370; J7030; J7040; J7050; J7512; Q5101; Q9967